=== PATIENT | female | born 1950 | race Caucasian/White ===

== ENCOUNTER 2017-06-15 10:14 | Emergency (ER) | payer BC ==
[2017-06-15 11:08] VITALS: BP 133/78
[2017-06-15] MEDS ORDERED: HYDROmorphone 1 MG/ML Syringe IM ONE (11:11)
--- NOTE | 2017-06-15 11:24 | EDM.PDOC ---
Scribed by Mariah Day 06/15/17 1122 for Jalil Emerson MD ED HPI GENERAL MEDICAL PROBLEM - General Chief Complaint: Back Pain or Injury Stated Complaint: [id number] BACK OUT Time Seen by Provider: 06/15/17 11:06 Source of Information: Reports: Patient, RN, RN Notes Reviewed History Limitations: Reports: No Limitations - History of Present Illness INITIAL COMMENTS - FREE TEXT/NARRATIVE: History of chronic low back with acute flare up last week. Patient complains of pain radiating from the low back through the left buttock to the left ankle. Denies numbness in saddle area, tingling or motor weakness. Denies loss of bowel or bladder control. Location: Reports: Back Quality: Reports: Ache Severity: Severe Improves with: Reports: None Worsens with: Reports: None Associated Symptoms: Reports: No Other Symptoms Left Back Pain Score (Numeric/FACES): 8 - Related Data Allergies Allergy/AdvReac Type Severity Reaction Status Date / Time ciprofloxacin Allergy Severe Difficulty Verified 06/15/17 11:08 Breathing azithromycin [From Zithromax] Allergy Difficulty Verified 06/15/17 11:08 Breathing Iodinated Contrast- Oral and Allergy Hives Verified 06/15/17 11:08 IV Dye [Iodinated Contrast Media - IV Dye] iodine Allergy Hives Verified 06/15/17 11:08 Sulfa (Sulfonamide Allergy Cannot Verified 06/15/17 11:08 Antibiotics) Remember Home Meds: Home Meds Albuterol/Ipratropium [DuoNeb 3.0-0.5 MG/3 ML] 1 packet INH QID PRN 04/24/14 [ History] Bimatoprost [LUMIGAN 0.01% Ophth Soln] 1 drop EYEBOTH BEDTIME 04/24/14 [History] Brimonidine/Timolol [Combigan 0.2%/0.5% Ophth Soln] 1 drop EYERT BID 04/24/14 [ History] Budesonide/Formoterol [Symbicort 160-4.5 MCG] 2 puff INH BID 04/24/14 [History] Levothyroxine [Synthroid] 88 mcg PO ACBRK 04/24/14 [History] Montelukast [Singulair] 10 mg PO BEDTIME 04/24/14 [History] Pitavastatin [Livalo] 1 mg PO DAILY 04/24/14 [History] Roflumilast [Daliresp] 500 mcg PO DAILY 04/24/14 [History] Tiotropium [Spiriva HandiHaler] 2 puff INH DAILY 04/24/14 [History] Fluticasone Propionate [Flonase] 1 spray INH DAILY 09/27/14 [History] Azithromycin [Zithromax] 250 mg PO DAILY 01/22/15 [History] Past Medical History Respiratory History: Reports: COPD Musculoskeletal History: Reports: Back Pain, Chronic (chronic low) - Past Surgical History Respiratory Surgical History: Reports: Other (See Below) (lung transplant.) Social & Family History - Family History Family Medical History: Noncontributory - Tobacco Use Smoking Status *Q: Never Smoker Years of Tobacco use: 25 Used Tobacco, but Quit: Yes Month Tobacco Last Used: 2003 Second Hand Smoke Exposure: No - Alcohol Use Days Per Week of Alcohol Use: 0 - Recreational Drug Use Recreational Drug Use: No - Living Situation & Occupation Living situation: Reports: Occupation: Retired ED ROS GENERAL - Review of Systems Review Of Systems: ROS reveals no pertinent complaints other than HPI. ED EXAM,LOWER BACK PAIN/INJURY - Physical Exam Exam: See Below Exam Limited By: No Limitations General Appearance: Alert, WD/WN, No Apparent Distress, Obese Neck: Normal Inspection, Supple, Non-Tender, Full Range of Motion Respiratory/Chest: No Respiratory Distress, Lungs Clear, Normal Breath Sounds, No Accessory Muscle Use, Chest Non-Tender Cardiovascular: Normal Peripheral Pulses, Regular Rate, Rhythm, No Edema, No Gallop, No JVD, No Murmur, No Rub GI/Abdominal: Other (benign obese abdomen) (Female) Exam: Deferred Rectal (Female) Exam: Deferred Back Exam: Other (tender to palpation at left L/S junction and L SI joint. Decreased lumbar ROM due to pain. ) Neurological: Alert, Normal Mood/Affect, Normal Dorsiflexion, CN II-XII Intact, Normal Plantar Flexion, Normal Gait, Normal Reflexes, No Motor/Sensory Deficits , Oriented x 3 Psychiatric: Normal Affect, Normal Mood Skin Exam: Warm, Dry, Intact, Normal Color, No Rash Course - Vital Signs Last Recorded V/S: Last Vital Signs Temp 35.9 C 06/15/17 10:45 Pulse 92 06/15/17 10:45 Resp 18 06/15/17 10:45 BP 133/78 06/15/17 10:45 Pulse Ox 96 06/15/17 10:45 - Orders/Labs/Meds Meds: Medications Discontinued Medications Generic Name Dose Route Start Last Admin Trade Name Duglas PRN Reason Stop Dose Admin Hydromorphone HCl 1 mg 06/15/17 11:11 06/15/17 11:22 Dilaudid IM 06/15/17 11:12 1 mg ONETIME ONE Administration Departure - Departure Time of Disposition: 11:12 Disposition: Home, Self-Care 01 Condition: Good Clinical Impression: Acute exacerbation of chronic low back pain, Acute left lumbar radiculopathy - Discharge Information Instructions: Lumbosacral Radiculopathy Forms: ED Department Discharge Additional Instructions: RX: Oxycodone APAP 10mg/325mg. Follow up in clinic this week for recheck. I have read and agree with the documentation that has been completed regarding this visit. By signing this record, I attest that the documentation was completed in my physical presence and is an accurate record of the encounter.
== END 2017-06-15 11:45 | disposition home or self-care (01) ==
LOC: DL.ED 10:14
DX: M54.16 Radiculopathy, lumbar region (principal); G89.29 Other chronic pain; J44.9 Chronic obstructive pulmonary disease, unspecified; Z94.2 Lung transplant status; Z87.891 Personal history of nicotine dependence; Z79.2 Long term (current) use of antibiotics; Z79.899 Other long term (current) drug therapy; Z88.2 Allergy status to sulfonamides; Z88.1 Allergy status to other antibiotic agents; Z91.041 Radiographic dye allergy status
CPT/HCPCS: 96372; 99282; J1170

== ENCOUNTER 2017-06-28 03:22 | Emergency (ER) | payer BC ==
[2017-06-28] MEDS ORDERED: Acyclovir 200 MG Cap PO ONE (03:39)
--- NOTE | 2017-06-28 03:44 | EDM.PDOC ---
ED HPI GENERAL MEDICAL PROBLEM - General Chief Complaint: Back Pain or Injury Stated Complaint: IN BY AMBULANCE Time Seen by Provider: 06/28/17 03:39 Source of Information: Reports: Patient History Limitations: Reports: No Limitations - History of Present Illness INITIAL COMMENTS - FREE TEXT/NARRATIVE: gives long h/o LBP, MRI scan from yesterday reveal multi level degenerative disk problems. Pt being Tx by PMD with multiple Rx but none helping thus far. also yesterday developed something on low back which is very painful. also her sciatica been worse. Left Lower Back Pain Score (Numeric/FACES): 10 - Related Data Allergies Allergy/AdvReac Type Severity Reaction Status Date / Time ciprofloxacin Allergy Severe Difficulty Verified 06/28/17 03:37 Breathing azithromycin [From Zithromax] Allergy Difficulty Verified 06/28/17 03:37 Breathing Iodinated Contrast- Oral and Allergy Hives Verified 06/28/17 03:37 IV Dye [Iodinated Contrast Media - IV Dye] iodine Allergy Hives Verified 06/28/17 03:37 Sulfa (Sulfonamide Allergy Cannot Verified 06/28/17 03:37 Antibiotics) Remember Home Meds: Home Meds Brimonidine/Timolol [Combigan 0.2%/0.5% Ophth Soln] 1 drop EYERT BID 04/24/14 [ History] Levothyroxine [Synthroid] 88 mcg PO ACBRK 04/24/14 [History] Pitavastatin [Livalo] 1 mg PO DAILY 04/24/14 [History] Bimatoprost [Lumigan 0.03% Ophth Soln] 2 drop EYEBOTH BEDTIME 06/28/17 [History] Calcium Carbonate/Vitamin D3 [Calcium 600-Vit D3 400 Tablet] 1 tab PO BID [History] Cholecalciferol (Vitamin D3) [Vitamin D3] 1 cap PO DAILY 06/28/17 [History] Dapsone 2 tab PO ASDIRECTED 06/28/17 [History] Hydrocodone/Acetaminophen [Hydrocodon-Acetaminophn 10-325] 1 tab PO ASDIRECTED PRN 06/28/17 [History] Lutein 1 cap PO DAILY 06/28/17 [History] Magnesium Oxide 1 tab PO TID 06/28/17 [History] Multivitamin [Multi-Day Vitamins] 1 tab PO DAILY 06/28/17 [History] Mycophenolate Mofetil [Cellcept] 6 cap PO BID 06/28/17 [History] Omeprazole 1 tab PO DAILY 06/28/17 [History] Tacrolimus 1 tab PO ASDIRECTED 06/28/17 [History] Tacrolimus [Prograf] 1 tab PO ASDIRECTED 06/28/17 [History] glipiZIDE [Glucotrol] 1 tab PO DAILY 06/28/17 [History] methylPREDNISolone [Methylprednisolone] 1 tab PO ASDIRECTED 06/28/17 [History] oxyCODONE 1 tab PO ASDIRECTED PRN 06/28/17 [History] predniSONE [Prednisone] 1 tab PO ASDIRECTED 06/28/17 [History] tiZANidine HCl [Zanaflex] 1 tab PO ASDIRECTED PRN 06/28/17 [History] traMADol [Ultram] 1 tab PO ASDIRECTED PRN 06/28/17 [History] Past Medical History Respiratory History: Reports: COPD Musculoskeletal History: Reports: Back Pain, Chronic (chronic low) - Past Surgical History Respiratory Surgical History: Reports: Other (See Below) (lung transplant.) Social & Family History - Family History Family Medical History: Noncontributory - Tobacco Use Smoking Status *Q: Never Smoker Years of Tobacco use: 25 Used Tobacco, but Quit: Yes Month Tobacco Last Used: 2003 Second Hand Smoke Exposure: No - Alcohol Use Days Per Week of Alcohol Use: 0 - Recreational Drug Use Recreational Drug Use: No - Living Situation & Occupation Living situation: Reports: Occupation: Retired ED ROS GENERAL - Review of Systems Review Of Systems: ROS reveals no pertinent complaints other than HPI. ED EXAM,LOWER BACK PAIN/INJURY - Physical Exam Exam: See Below Exam Limited By: No Limitations General Appearance: Alert, WD/WN, Mild Distress, Other (tearful) Ears: Hearing Grossly Normal Throat/Mouth: Normal Voice, No Airway Compromise Head: Atraumatic Neck: Non-Tender, Full Range of Motion Respiratory/Chest: No Respiratory Distress Cardiovascular: Regular Rate, Rhythm GI/Abdominal: Soft, Non-Tender Back Exam: Decreased Range of Motion, Muscle Spasm, Paraspinal Tenderness, Other (bilateral sciatica with shingle lesion along nerve root. gait limited to pain) Neurological: Alert, No Motor/Sensory Deficits, Oriented x 3 Psychiatric: Tearful Skin Exam: Warm, Dry, Normal Color Lymphatic: No Adenopathy Course - Vital Signs Last Recorded V/S: Last Vital Signs Temp 35.7 C 06/28/17 04:20 Pulse 100 06/28/17 04:20 Resp 22 H 06/28/17 04:20 BP 132/69 06/28/17 04:20 Pulse Ox 98 06/28/17 04:20 - Orders/Labs/Meds Orders: Active Orders 24 hr Category Date Time Status fentaNYL [Duragesic] Med 06/28/17 03:45 Active 25 mcg TRDERM Q72H Medication Orders Fentanyl (Duragesic) 25 mcg TRDERM Q72H EFRAÍN Last Admin: 06/28/17 03:58 Dose: 25 mcg Meds: Medications Generic Name Dose Route Start Last Admin Trade Name Freq PRN Reason Stop Dose Admin Fentanyl 25 mcg 06/28/17 03:45 06/28/17 03:58 Duragesic TRDERM 25 mcg Q72H EFRAÍN Administration Discontinued Medications Generic Name Dose Route Start Last Admin Trade Name Freq PRN Reason Stop Dose Admin Acyclovir 200 mg 06/28/17 03:39 06/28/17 03:59 Zovirax PO 06/28/17 03:40 200 mg ONETIME ONE Administration Butorphanol Tartrate 2 mg 06/28/17 04:39 06/28/17 04:46 Stadol IM 06/28/17 04:40 2 mg ONETIME ONE Administration - Re-Assessments/Exams Free Text/Narrative Re-Assessment/Exam: 06/28/17 05:40 re-exam; s/p IM Rx = somewhat better but not 100%. Departure - Departure Time of Disposition: 05:41 Disposition: Home, Self-Care 01 Condition: Fair Clinical Impression: Multifactorial low back pain, Shingles (herpes zoster) polyneuropathy, Lumbar radicular pain Sciatica Qualifiers: Laterality: bilateral Qualified Code(s): M54.31 - Sciatica, right side - Discharge Information Instructions: Back Pain, Adult, [id number] Forms: ED Department Discharge Additional Instructions: 1) rest 2) try ice or heat to area 3) avoid bending lifting straining next 48 hours 4) see family doctor Friday rx given; zovirax 200mg 5 daily x 5 days - My Orders Last 24 Hours: My Active Orders 06/28/17 03:45 fentaNYL [Duragesic] 25 mcg TRDERM Q72H - Assessment/Plan Last 24 Hours: My Active Orders 06/28/17 03:45 fentaNYL [Duragesic] 25 mcg TRDERM Q72H
[2017-06-28] MEDS ORDERED: fentaNYL 25 MCG/HR Transdermal Patch TRDERM SCH (03:45)
[2017-06-28 04:22] VITALS: BP 132/69
[2017-06-28] MEDS ORDERED: Butorphanol 2 MG/ML SDV IM ONE (04:39)
== END 2017-06-28 05:50 | disposition home or self-care (01) ==
LOC: DL.ED 03:22
DX: M54.41 Lumbago with sciatica, right side (principal); B02.23 Postherpetic polyneuropathy; J44.9 Chronic obstructive pulmonary disease, unspecified; Z88.1 Allergy status to other antibiotic agents; Z88.2 Allergy status to sulfonamides; Z88.8 Allergy status to other drugs, medicaments and biological substances; Z91.041 Radiographic dye allergy status; Z79.84 Long term (current) use of oral hypoglycemic drugs; Z79.899 Other long term (current) drug therapy
CPT/HCPCS: 96372; 99283; A9270; J0595

== ENCOUNTER 2017-12-07 09:55 | Emergency (ER) | payer MEDICARE, BC ==
--- NOTE | 2017-12-07 10:07 | EDM.PDOC ---
ED HPI GENERAL MEDICAL PROBLEM - General Chief Complaint: Respiratory Problem Stated Complaint: BY AMBULANCE Time Seen by Provider: 12/07/17 09:55 Source of Information: Reports: Patient, EMS, EMS Notes Reviewed, RN, RN Notes Reviewed History Limitations: Reports: No Limitations - History of Present Illness INITIAL COMMENTS - FREE TEXT/NARRATIVE: Pt presents to ER per [facility] with c/o SOB since , with N/V/D beginning today. Pt states she has a hx of a left lung transplant approx. 2 years ago for hx of severe COPD. She states she developed a cough on , and the cough and her breathing has progressively gotten worse. Pt states she has had the chills, but is unsure if she has had a fever. Patient denies any chest pains. Pt admits to DM and HTN. Onset: Gradual Onset Date: 12/04/17 - Related Data Allergies Allergy/AdvReac Type Severity Reaction Status Date / Time ciprofloxacin Allergy Severe Difficulty Verified 12/07/17 10:20 Breathing azithromycin [From Zithromax] Allergy Difficulty Verified 12/07/17 10:20 Breathing Iodinated Contrast- Oral and Allergy Hives Verified 12/07/17 10:20 IV Dye [Iodinated Contrast Media - IV Dye] iodine Allergy Hives Verified 12/07/17 10:20 Sulfa (Sulfonamide Allergy Cannot Verified 12/07/17 10:20 Antibiotics) Remember Home Meds: Home Meds Brimonidine/Timolol [Combigan 0.2%/0.5% Ophth Soln] 1 drop EYERT Q12HR 04/24/14 [History] Levothyroxine [Synthroid] 88 mcg PO ACBRK 04/24/14 [History] Bimatoprost [Lumigan 0.03% Ophth Soln] 2 drop EYEBOTH BEDTIME 06/28/17 [History] Calcium Carbonate/Vitamin D3 [Calcium 600-Vit D3 400 Tablet] 1 tab PO BID [History] Cholecalciferol (Vitamin D3) [Vitamin D3] 1,000 unit PO DAILY 06/28/17 [History] Dapsone 50 mg PO .3XAWEEK 06/28/17 [History] Lutein 6 mg PO DAILY 06/28/17 [History] Magnesium Oxide 400 mg PO TID 06/28/17 [History] Multivitamin [Multi-Day Vitamins] 1 tab PO DAILY 06/28/17 [History] Mycophenolate Mofetil [Cellcept] 1,500 mg PO BID 06/28/17 [History] Omeprazole 20 mg PO BID 06/28/17 [History] Tacrolimus 1.5 mg PO QAM 06/28/17 [History] Tacrolimus [Prograf] 2 mg PO QPM 06/28/17 [History] predniSONE [Prednisone] 5 mg PO QAM 06/28/17 [History] Acetaminophen 975 mg PO TID 12/07/17 [History] Furosemide 20 mg PO DAILY 12/07/17 [History] Gabapentin [Neurontin] 600 mg PO TID 12/07/17 [History] Insulin Glarg,Human.Rec.Analog [Lantus Solostar] 12 unit SUBCUT BEDTIME [History] Simvastatin [Zocor] 10 mg PO BEDTIME 12/07/17 [History] predniSONE [Prednisone] 2.5 mg PO QPM 12/07/17 [History] Past Medical History HEENT History: Reports: Glaucoma Cardiovascular History: Reports: High Cholesterol Respiratory History: Reports: COPD Gastrointestinal History: Reports: [employer] History: Reports: Musculoskeletal History: Reports: Back Pain, Chronic (chronic low) Endocrine/Metabolic History: Reports: Diabetes, Type II, Hypoparathyroidism, Hypothyroidism, Vitamin D Deficiency - Infectious Disease History Infectious Disease History: Reports: Shingles - Past Surgical History Respiratory Surgical History: Reports: Other (See Below) (lung transplant.) Social & Family History - Family History Family Medical History: Noncontributory - Tobacco Use Smoking Status *Q: Never Smoker Years of Tobacco use: 25 Used Tobacco, but Quit: Yes Month Tobacco Last Used: 2003 Second Hand Smoke Exposure: No - Caffeine Use Caffeine Use: Reports: Coffee - Alcohol Use Days Per Week of Alcohol Use: 0 - Recreational Drug Use Recreational Drug Use: No - Living Situation & Occupation Living situation: Reports: Occupation: Retired ED ROS GENERAL - Review of Systems Review Of Systems: ROS reveals no pertinent complaints other than HPI. ED EXAM, GENERAL - Physical Exam Exam: See Below Exam Limited By: No Limitations General Appearance: Alert, WD/WN, Moderate Distress Eye Exam: Bilateral Eye: EOMI, Normal Inspection, PERRL Ears: Normal External Exam, Hearing Grossly Normal Nose: Normal Inspection Throat/Mouth: Normal Inspection, No Airway Compromise, Other (Raspy voice at times) Head: Atraumatic, Normocephalic Neck: Normal Inspection Respiratory/Chest: Chest Non-Tender, Respiratory Distress, Decreased Breath Sounds, Rales, Accessory Muscle Use Cardiovascular: Normal Peripheral Pulses, Regular Rate, Rhythm, No Edema, No Gallop, No JVD, No Murmur, No Rub Peripheral Pulses: 2+: Radial (L), Radial (R), Dorsalis Pedis (L), Dorsalis Pedis (R) GI/Abdominal: Normal Bowel Sounds, Soft, Non-Tender, No Organomegaly, No Distention, No Abnormal Bruit, No Mass (Female) Exam: Deferred Rectal (Female) Exam: Deferred Back Exam: Normal Inspection, Full Range of Motion Extremities: Normal Inspection, Normal Range of Motion, Non-Tender, No Pedal Edema, Normal Capillary Refill Neurological: Alert, Oriented, CN II-XII Intact, Normal Cognition, Normal Reflexes, No Motor/Sensory Deficits Psychiatric: Normal Affect, Normal Mood Skin Exam: Warm, Dry, Intact, Normal Color, No Rash Lymphatic: No Adenopathy Course - Vital Signs Last Recorded V/S: Last Vital Signs Temp 98 F 12/07/17 10:06 Pulse 114 H 12/07/17 10:12 Resp 22 H 12/07/17 10:06 BP 121/68 12/07/17 10:06 Pulse Ox 96 12/07/17 10:12 - Orders/Labs/Meds Orders: Active Orders 24 hr Category Date Time Status RT Aerosol Therapy [RC] ASDIRECTED Care 12/07/17 10:12 Active Chest 1V Frontal [CR] Stat Exams 12/07/17 10:02 Taken CULTURE BLOOD [BC] Stat Lab 12/07/17 10:15 Received CULTURE BLOOD [BC] Stat Lab 12/07/17 10:22 Results Sodium Chloride 0.9% [Normal Saline] 1,000 ml Med 12/07/17 11:17 Active IV .BOLUS Blood Culture x2 Reflex Set [OM.PC] Stat Oth 12/07/17 10:02 Ordered Medication Orders Sodium Chloride (Normal Saline) 1,000 mls @ 999 mls/hr IV .BOLUS ONE Stop: 12/07/17 12:17 Last Admin: 12/07/17 11:26 Dose: 999 mls/hr Labs: Laboratory Tests 12/07/17 12/07/17 12/07/17 Range/Units 10:15 10:15 10:15 WBC 8.1 (5.0-10.0) 10^3/uL RBC 4.62 (4.2-5.4) 10^6/uL Hgb 12.1 (12.0-16.0) g/dL Hct 39.7 (37.0-47.0) % MCV 85.9 D (80-100) fL MCH 26.2 L (27.0-34.0) pg MCHC 30.5 L (33.0-35.0) g/dL Plt Count 204 D (150-450) 10^3/uL Neut % (Auto) 85.3 H (42.2-75.2) % Lymph % (Auto) 6.8 L (20.5-50.1) % [place] % (Auto) 4.9 (2-8) % Eos % (Auto) 2.8 (1.0-3.0) % Baso % (Auto) 0.2 (0.0-1.0) % Sodium 136 (135-145) mmol/L Potassium 3.9 (3.6-5.0) mmol/L Chloride 102 (101-111) mmol/L Carbon Dioxide 24.0 (21.0-31.0) mmol/L Anion Gap 13.9 BUN 15 (7-18) mg/dL Creatinine 1.0 (0.6-1.3) mg/dL Est Cr Clr Drug Dosing 52.50 mL/min Estimated GFR (MDRD) 56 BUN/Creatinine Ratio 15.00 Glucose 181 H (74-105) mg/dL Lactic Acid 1.6 (0.5-2.2) mmol/L Calcium 8.2 L (8.4-10.2) mg/dl Total Bilirubin 0.6 (0.2-1.0) mg/dL AST 30 (10-42) IU/L ALT 32 (10-60) IU/L Alkaline Phosphatase 50 (42-121) IU/L Total Protein 6.4 L (6.7-8.2) g/dl Albumin 3.5 (3.2-5.5) g/dl Globulin 2.9 Albumin/Globulin Ratio 1.21 Urine Color (YELLOW) Urine Appearance (CLEAR) Urine pH (5.0-9.0) Ur Specific [place] (1.005-1.030) Urine Protein (NEGATIVE) Urine Glucose (UA) (NEGATIVE) Urine Ketones (NEGATIVE) Urine Occult Blood (NEGATIVE) Urine Nitrite (NEGATIVE) Urine Bilirubin (NEGATIVE) Urine Urobilinogen (0.2-1.0) mg/dL Ur Leukocyte Esterase (NEGATIVE) Urine RBC /HPF Urine WBC (0-5/HPF) /HPF Ur Epithelial Cells /HPF Amorphous Sediment (0/HPF) /HPF Urine Bacteria (0-FEW/HPF) /HPF Urine Mucus /LPF 12/07/17 Range/Units 10:55 WBC (5.0-10.0) 10^3/uL RBC (4.2-5.4) 10^6/uL Hgb (12.0-16.0) g/dL Hct (37.0-47.0) % MCV (80-100) fL MCH (27.0-34.0) pg MCHC (33.0-35.0) g/dL Plt Count (150-450) 10^3/uL Neut % (Auto) (42.2-75.2) % Lymph % (Auto) (20.5-50.1) % [place] % (Auto) (2-8) % Eos % (Auto) (1.0-3.0) % Baso % (Auto) (0.0-1.0) % Sodium (135-145) mmol/L Potassium (3.6-5.0) mmol/L Chloride (101-111) mmol/L Carbon Dioxide (21.0-31.0) mmol/L Anion Gap BUN (7-18) mg/dL Creatinine (0.6-1.3) mg/dL Est Cr Clr Drug Dosing mL/min Estimated GFR (MDRD) BUN/Creatinine Ratio Glucose (74-105) mg/dL Lactic Acid (0.5-2.2) mmol/L Calcium (8.4-10.2) mg/dl Total Bilirubin (0.2-1.0) mg/dL AST (10-42) IU/L ALT (10-60) IU/L Alkaline Phosphatase (42-121) IU/L Total Protein (6.7-8.2) g/dl Albumin (3.2-5.5) g/dl Globulin Albumin/Globulin Ratio Urine Color Dark yellow (YELLOW) Urine Appearance Cloudy (CLEAR) Urine pH 5.0 (5.0-9.0) Ur Specific [place] 1.025 (1.005-1.030) Urine Protein 30 H (NEGATIVE) Urine Glucose (UA) Negative (NEGATIVE) Urine Ketones 15 H (NEGATIVE) Urine Occult Blood Negative (NEGATIVE) Urine Nitrite Negative (NEGATIVE) Urine Bilirubin Small H (NEGATIVE) Urine Urobilinogen 0.2 (0.2-1.0) mg/dL Ur Leukocyte Esterase Negative (NEGATIVE) Urine RBC 0-5 /HPF Urine WBC 10-20 H (0-5/HPF) /HPF Ur Epithelial Cells Moderate H /HPF Amorphous Sediment Rare (0/HPF) /HPF Urine Bacteria Few (0-FEW/HPF) /HPF Urine Mucus Moderate H /LPF Meds: Medications Generic Name Dose Route Start Last Admin Trade Name Freq PRN Reason Stop Dose Admin Sodium Chloride 1,000 mls @ 999 mls/hr 12/07/17 11:17 12/07/17 11:26 Normal Saline IV 12/07/17 12:17 999 mls/hr .BOLUS ONE Administration Discontinued Medications Generic Name Dose Route Start Last Admin Trade Name Freq PRN Reason Stop Dose Admin Albuterol/Ipratropium 3 ml 12/07/17 10:12 12/07/17 10:24 Duoneb 3.0-0.5 Mg/3 Ml NEB 12/07/17 10:13 3 ml ONETIME ONE Administration Ceftriaxone Sodium 2,000 mg/ 50 mls @ 100 mls/hr 12/07/17 10:29 12/07/17 10: 58 Sodium Chloride IV 12/07/17 10:58 100 mls/hr ONETIME ONE Administration Ondansetron HCl 4 mg 12/07/17 11:06 12/07/17 11:26 Zofran IV 12/07/17 11:07 4 mg ONETIME ONE Administration Pantoprazole Sodium 40 mg 12/07/17 11:06 12/07/17 11:26 Protonix Iv IVPUSH 12/07/17 11:07 40 mg ONETIME ONE Administration - Radiology Interpretation Free Text/Narrative:: Portable Chest xray: No acute findings See rad report - Re-Assessments/Exams Free Text/Narrative Re-Assessment/Exam: 12/07/17 12:08 Discussed Pt case with Dr. Irwin. Dr. Irwin initially thought he would admit the patient here inpatient. When he came to see her in the ER he felt she would benefit from being transferred to with Pulmonology consult. Departure - Departure Time of Disposition: 12:01 Disposition: DC/Tfer to Acute Hospital 02 Condition: Poor, Serious Clinical Impression: Lung transplant recipient Upper respiratory infection Qualifiers: URI type: unspecified URI Qualified Code(s): J06.9 - Acute upper respiratory infection, unspecified COPD (chronic obstructive pulmonary disease) Qualifiers: COPD type: unspecified COPD Qualified Code(s): J44.9 - Chronic obstructive pulmonary disease, unspecified - Discharge Information Forms: ED Department Discharge, Interfacility Transfer EMTALA - My Orders Last 24 Hours: My Active Orders 12/07/17 10:02 Chest 1V Frontal [CR] Stat Blood Culture x2 Reflex Set [OM.PC] Stat 12/07/17 10:12 RT Aerosol Therapy [RC] ASDIRECTED 12/07/17 10:15 CULTURE BLOOD [BC] Stat 12/07/17 10:22 CULTURE BLOOD [BC] Stat 12/07/17 11:17 Sodium Chloride 0.9% [Normal Saline] 1,000 ml IV .BOLUS - Assessment/Plan Last 24 Hours: My Active Orders 12/07/17 10:02 Chest 1V Frontal [CR] Stat Blood Culture x2 Reflex Set [OM.PC] Stat 12/07/17 10:12 RT Aerosol Therapy [RC] ASDIRECTED 12/07/17 10:15 CULTURE BLOOD [BC] Stat 12/07/17 10:22 CULTURE BLOOD [BC] Stat 12/07/17 11:17 Sodium Chloride 0.9% [Normal Saline] 1,000 ml IV .BOLUS
[2017-12-07 10:12] VITALS: BP 121/68
[2017-12-07] MEDS ORDERED: Albuterol/Ipratropium 3.0-0.5 MG/3 ML Neb Soln NEB ONE (10:12)
[2017-12-07] MEDS ORDERED: Ondansetron 4 MG/2 ML SDV IV ONE (11:06)
[2017-12-07] MEDS ORDERED: Pantoprazole 40 MG Vial IVPUSH ONE (11:06)
[2017-12-07] MEDS ORDERED: Sodium Chloride 0.9% 1,000 ML IV ONE (11:17)
[2017-12-07] MEDS ORDERED: Acetaminophen 325 MG Tab PO ONE (12:19)
== END 2017-12-07 12:28 ==
LOC: DL.ED 09:55
DX: J44.9 Chronic obstructive pulmonary disease, unspecified (principal); J06.9 Acute upper respiratory infection, unspecified; E78.00 Pure hypercholesterolemia, unspecified; I10 Essential (primary) hypertension; K21.9 Gastro-esophageal reflux disease without esophagitis; E11.9 Type 2 diabetes mellitus without complications; E03.9 Hypothyroidism, unspecified; Z94.2 Lung transplant status; Z87.891 Personal history of nicotine dependence; Z79.4 Long term (current) use of insulin; Z79.899 Other long term (current) drug therapy; Z88.1 Allergy status to other antibiotic agents; Z88.2 Allergy status to sulfonamides; Z88.8 Allergy status to other drugs, medicaments and biological substances; Z91.041 Radiographic dye allergy status
CPT/HCPCS: 36415; 71045; 80053; 81001; 83605; 85025; 87040; 94640; 96361; 96365; 96375; 99285; A9270; C9113; J0696; J2405; J7030; J7050

== ENCOUNTER 2020-10-26 12:48 | Observation (INO) | payer MEDICARE, BC ==
[2020-10-26 13:44] LABS: ANION GAP 18.8 mEq/L (7-13)
[2020-10-26] MEDS ORDERED: Magnesium Sulfate/Water 4 GM/100 ML BAG IV ONE (13:49)
[2020-10-26] MEDS ORDERED: Sodium Chloride 0.9% 1,000 ML IV ONE (13:51)
[2020-10-26] MEDS ORDERED: Ondansetron 4 MG/2 ML SDV IVPUSH ONE (13:52)
--- NOTE | 2020-10-26 14:20 | EDM.PDOC ---
ED HPI GENERAL MEDICAL PROBLEM - General Chief Complaint: Gastrointestinal Problem Stated Complaint: DIARRHEA, NAUSEA, NOT FEELING WELL Time Seen by Provider: 10/26/20 13:20 Source of Information: Reports: Patient, RN, RN Notes Reviewed History Limitations: Reports: No Limitations - History of Present Illness INITIAL COMMENTS - FREE TEXT/NARRATIVE: Patient presents to the ED via personal vehicle with complaints of diarrhea, nausea, and vomiting. The patient reports she was diagnosed with a COVID infection on October 16, 10 days ago, following symptoms that began on on . The patient states that she has had persistent diarrhea, nausea, and vomiting since this diagnosis despite multiple doses of Imodium. She states she feels significantly weaker than normal as she has not been able to eat or drink in several days. The patient reports a history of lung transplant for which she takes mycophenolate, tacrolimus, and prednisone; a history of hypertension for which she takes losartan; and a history of DM 2 for which she takes glipizide and Ozempic. The patient denies fever, shaking chills, headache, vision changes, chest pain, shortness of breath, dyspepsia, hematemesis, melena, or hematochezia. The patient does attest to chest palpitations. She denies a history of tobacco, alcohol, or recreational substance use. - Related Data Allergies Allergy/AdvReac Type Severity Reaction Status Date / Time ciprofloxacin Allergy Severe Difficulty Verified 10/26/20 13:15 Breathing azithromycin [From Zithromax] Allergy Difficulty Verified 10/26/20 13:15 Breathing Iodinated Contrast Media Allergy Hives Verified 10/26/20 13:15 [Iodinated Contrast Media - IV Dye] iodine Allergy Hives Verified 10/26/20 13:15 Sulfa (Sulfonamide Allergy Cannot Verified 10/26/20 13:15 Antibiotics) Remember Home Meds: Home Meds Brimonidine/Timolol [Combigan 0.2%/0.5% Ophth Soln] 1 drop EYEBOTH BID 04/24/14 [History] Calcium Carbonate/Vitamin D3 [Calcium 600-Vit D3 400 Tablet] 1 tab PO BID 06/28/17 [History] Cholecalciferol (Vitamin D3) [Vitamin D3] 1,000 unit PO DAILY 06/28/17 [History] Dapsone 50 mg PO .MONWEDFRI 06/28/17 [History] Lutein 6 mg PO DAILY 06/28/17 [History] Magnesium Oxide 1,200 mg PO BID 06/28/17 [History] Multivitamin [Multi-Day Vitamins] 1 tab PO DAILY 06/28/17 [History] Omeprazole 20 mg PO BID 06/28/17 [History] Tacrolimus 1 mg PO BID 06/28/17 [History] predniSONE [Prednisone] 5 mg PO QAM 06/28/17 [History] Acetaminophen 975 mg PO TID 12/07/17 [History] predniSONE [Prednisone] 2.5 mg PO QPM 12/07/17 [History] Lidocaine 5% [Lidoderm 5%] 1 patch TRDERM DAILY PRN 10/26/20 [History] Loperamide [Imodium] 2 mg PO Q6H PRN 10/26/20 [History] Bimatoprost [Lumigan 0.01% Ophth Soln] 1 drop EYEBOTH BEDTIME 10/27/20 [History] Bumetanide 0.5 mg PO DAILY 10/27/20 [History] Diclofenac Sodium [Voltaren 1% Gel] 1 gram TOP BID PRN 10/27/20 [History] Insulin Glargine,Hum.Rec.Anlog [Basaglar Kwikpen U-100] 18 units SQ BEDTIME 10/27/20 [History] Levothyroxine 112 mcg PO ACBREAKFAST 10/27/20 [History] Losartan [Cozaar] 100 mg PO DAILY 10/27/20 [History] Semaglutide [Ozempic] 1 mg SQ .WEEKLY 10/27/20 [History] Simvastatin 40 mg PO BEDTIME 10/27/20 [History] Tacrolimus 0.5 mg PO BID 10/27/20 [History] glipiZIDE [Glucotrol] 10 mg PO BID 10/27/20 [History] mycophenolate mofetiL [Mycophenolate Mofetil] 1,500 mg PO BID 10/27/20 [History] Past Medical History HEENT History: Reports: Glaucoma, Macular Degeneration Cardiovascular History: Reports: High Cholesterol Respiratory History: Reports: COPD, Sleep Apnea, Other (See Below) Other Respiratory History: COVID 19 Gastrointestinal History: Reports: GERD Genitourinary History: Reports: None [employer]ER History: Reports: Musculoskeletal History: Reports: Back Pain, Chronic Neurological History: Reports: None Psychiatric History: Reports: None Endocrine/Metabolic History: Reports: Diabetes, Type II, Hypoparathyroidism, Hypothyroidism, Vitamin D Deficiency Hematologic History: Reports: None Immunologic History: Reports: Other (See Below) Other Immunologic History: Lung transplant Oncologic (Cancer) History: Reports: None Dermatologic History: Reports: None - Infectious Disease History Infectious Disease History: Reports: Shingles - Past Surgical History Head Surgeries/Procedures: Reports: None HEENT Surgical History: Reports: None Cardiovascular Surgical History: Reports: None Respiratory Surgical History: Reports: Other (See Below) Other Respiratory Surgeries/Procedures: left lung transplant 2014 GI Surgical History: Reports: Colonoscopy Female Surgical History: Reports: Tubal Ligation Endocrine Surgical History: Reports: None Neurological Surgical History: Reports: None Musculoskeletal Surgical History: Reports: None Oncologic Surgical History: Reports: None Dermatological Surgical History: Reports: None Social & Family History - Family History Family Medical History: No Pertinent Family History - Tobacco Use Tobacco Use Status *Q: Never Tobacco User - Caffeine Use Caffeine Use: Reports: Coffee Caffeine Use Comment: 1-2 CUPS DAILY - Recreational Drug Use Recreational Drug Use: No - Living Situation & Occupation Living situation: Reports: Occupation: Retired ED ROS GENERAL - Review of Systems Review Of Systems: Comprehensive ROS is negative, except as noted in HPI. ED EXAM, GI/ABD - Physical Exam Exam: See Below Exam Limited By: No Limitations General Appearance: Alert, Mild Distress, Obese Eyes: Bilateral: Normal Appearance, EOMI Throat/Mouth: Normal Voice, No Airway Compromise. No: Normal Oropharynx (Dry mucous membranes) Head: Atraumatic, Normocephalic Neck: Normal Inspection, Supple, Non-Tender, Full Range of Motion. No: Lymphadenopathy (L), Lymphadenopathy (R) Respiratory/Chest: No Accessory Muscle Use, Chest Non-Tender, Decreased Breath Sounds, Other (Absent lung sounds to right upper lobe). No: Crackles, Rales, Rhonchi, Wheezing, Stridor, Pleural Rub Cardiovascular: Normal Peripheral Pulses, Regular Rate, Rhythm, No Edema, No Gallop, No JVD, No Murmur, No Rub GI/Abdominal Exam: Soft, No Distention, No Mass, Pelvis Stable, Tender (To palpation of RUQ and LLQ), Abnormal Bowel Sounds (Hyperactive) (Female) Exam: Deferred Rectal (Female) Exam: Deferred Back Exam: Normal Inspection, Full Range of Motion. No: CVA Tenderness (L), CVA Tenderness (R) Extremities: Normal Inspection, Normal Range of Motion, Non-Tender, No Pedal Edema, Normal Capillary Refill Neurological: Alert, Oriented, CN II-XII Intact, Normal Cognition, Normal Gait, No Motor/Sensory Deficits Psychiatric: Normal Affect, Normal Mood Skin Exam: Warm, Dry, Intact, Normal Color, No Rash. No: Ecchymosis, Erythema, Increased Warmth, Jaundice, Mottled, Pallor, Petechiae Course - Vital Signs Last Recorded V/S: Last Vital Signs Temp 97.7 F 10/27/20 08:00 Pulse 86 10/27/20 08:00 Resp 18 10/27/20 08:00 BP 116/53 L 10/27/20 08:00 Pulse Ox 95 10/27/20 08:00 - Orders/Labs/Meds Orders: Active Orders 24 hr Category Date Time Status Admission Diagnosis [ADT] Stat ADT 10/26/20 18:35 Ordered Admission Status [Patient Status] [ADT] Routine ADT 10/26/20 18:35 Active Late Tray [DIET] Routine Diet 10/26/20 14:13 Active CULTURE URINE [RM] Stat Lab 10/26/20 16:28 Results Medication Orders Acetaminophen (Tylenol) 650 mg PO Q4H PRN PRN Reason: Pain (Mild 1-3)/fever Bismuth Subsalicylate (Pepto Bismol) 30 mg PO TID [facility] Bumetanide (Bumex) 0.5 mg PO DAILY [facility] Dextrose/Water (Dextrose 50% In Water) 50 ml IV ASDIRECTED PRN PRN Reason: Hypoglycemia Glipizide (Glucotrol) 10 mg PO BID [facility] Glucagon (Glucagen) 1 mg IM ASDIRECTED PRN PRN Reason: Hypoglycemia Heparin Sodium (Porcine) (Heparin Sodium) 5,000 units SUBCUT Q8HR [facility] Last Admin: 10/27/20 05:57 Dose: Not Given Documented by: Admin: 10/26/20 21:44 Dose: 5,000 units Documented by: JOB Ciprofloxacin/Dextrose 400 mg/ (Premix) 200 mls @ 200 mls/hr IV DAILY [facility] Insulin Glargine (Lantus) 12 unit SUBCUT BEDTIME [facility] Insulin Human Lispro (Humalog) 0 unit SUBCUT WITHMEALSANDBED [facility]; Protocol Last Admin: 10/27/20 08:50 Dose: Not Given Documented by: Admin: 10/26/20 21:43 Dose: 1 unit Documented by: JOB Levothyroxine Sodium (Levothyroxine) 112 mcg PO ACBRK [facility] Loperamide HCl (Imodium) 2 mg PO Q6H PRN PRN Reason: Diarrhea Magnesium Oxide (Magnesium Oxide) 1,200 mg PO BIDMEALS [facility] Multivitamins (Thera) 1 each PO DAILY [facility] Last Admin: 10/27/20 10:23 Dose: 1 each Documented by: MALLIKA Non-Formulary Medication 1 Each ( Bimatoprost [Lumigan 0.01% Ophth Soln] 2 Drop) 1 drop EYEBOTH BEDTIME [facility] Non-Formulary Medication (Brimonidine/Timolol [Combigan 0.2%/0.5% Ophth Soln]) 1 drop EYERT Q12HR [facility] Dapsone [Dapsone] 25 (Mg Tab) 0 mg PO [id number] [facility] Tacrolimus 1 Mg Cap (*Own Med*) 0 each PO BID [facility] Last Admin: 10/27/20 11:19 Dose: 1 each Documented by: MALLIKA Tacrolimus 0.5 Mg (Cap *Own Med*) 0 each PO BID [facility] Last Admin: 10/27/20 11:19 Dose: 1 each Documented by: MALLIKA Omeprazole (Omeprazole) 20 mg PO BIDAC [facility] Last Admin: 10/27/20 08:49 Dose: 20 mg Documented by: MALLIKA Ondansetron HCl (Zofran Odt) 4 mg PO Q4H PRN PRN Reason: nausea, able to take PO Last Admin: 10/26/20 21:53 Dose: 4 mg Documented by: JOB Mycophenolate 500 Mg (Tab *Own Med*) 0 each PO BID [facility] Prednisone (Prednisone) 2.5 mg PO BEDTIME [facility] Prednisone (Prednisone) 5 mg PO QAM [facility] Simvastatin (Zocor) 40 mg PO BEDTIME [facility] Temazepam (Restoril) 15 mg PO BEDTIME PRN PRN Reason: Sleep Labs: Laboratory Tests 10/26/20 10/26/20 10/26/20 Range/Units 13:19 13:19 13:19 WBC 7.1 (5.0-10.0) 10^3/uL RBC 4.67 (4.2-5.4) 10^6/uL Hgb 13.1 (12.0-16.0) g/dL Hct 40.5 (37.0-47.0) % MCV 86.7 (80-100) fL MCH 28.1 (27.0-34.0) pg MCHC 32.3 L (33.0-35.0) g/dL Plt Count 219 (150-450) 10^3/uL Neut % (Auto) 83.4 H (42.2-75.2) % Lymph % (Auto) 8.2 L (20.5-50.1) % [place] % (Auto) 7.3 (2-8) % Eos % (Auto) 1.0 (1.0-3.0) % Baso % (Auto) 0.1 (0.0-1.0) % D-Dimer, Quantitative 519 H (0-400) ng/mL Sodium 138 (136-145) mmol/L Potassium 3.8 (3.5-5.1) mmol/L Chloride 102 (98-107) mmol/L Carbon Dioxide 21 (21-32) mmol/L Anion Gap 18.8 H (7-13) mEq/L BUN 40 H (7-18) mg/dL Creatinine 1.98 H (0.55-1.02) mg/dL Est Cr Clr Drug Dosing 25.46 mL/min Estimated GFR (MDRD) 25 BUN/Creatinine Ratio 20.2 (No establ ref range) Glucose 259 H (74-99) mg/dL Lactic Acid (0.4-2.0) mmol/L Calcium 8.4 L (8.5-10.1) mg/dL Magnesium 1.0 L (1.8-2.4) mg/dL Total Bilirubin 0.5 (0.2-1.0) mg/dL AST 38 H (15-37) U/L ALT 79 H (14-59) U/L Alkaline Phosphatase 78 (46-116) U/L B-Natriuretic Peptide 8 (0-100) pg/ml Total Protein 6.2 L (6.4-8.2) g/dL Albumin 3.1 L (3.4-5.0) g/dL Globulin 3.1 Albumin/Globulin Ratio 1.00 Urine Color (YELLOW) Urine Appearance (CLEAR) Urine pH (5.0-9.0) Ur Specific [place] (1.005-1.030) Urine Protein (NEGATIVE) Urine Glucose (UA) (NEGATIVE) Urine Ketones (NEGATIVE) Urine Occult Blood (NEGATIVE) Urine Nitrite (NEGATIVE) Urine Bilirubin (NEGATIVE) Urine Urobilinogen (0.2-1.0) mg/dL Ur Leukocyte Esterase (NEGATIVE) Urine RBC /HPF Urine WBC (0-5/HPF) /HPF Ur Epithelial Cells (NOT SEEN) /HPF Amorphous Sediment (NOT SEEN) /HPF Urine Bacteria (0-FEW/HPF) /HPF Urine Mucus (NOT SEEN) /LPF 10/26/20 10/26/20 10/26/20 Range/Units 13:19 16:28 17:45 WBC (5.0-10.0) 10^3/uL RBC (4.2-5.4) 10^6/uL Hgb (12.0-16.0) g/dL Hct (37.0-47.0) % MCV (80-100) fL MCH (27.0-34.0) pg MCHC (33.0-35.0) g/dL Plt Count (150-450) 10^3/uL Neut % (Auto) (42.2-75.2) % Lymph % (Auto) (20.5-50.1) % [place] % (Auto) (2-8) % Eos % (Auto) (1.0-3.0) % Baso % (Auto) (0.0-1.0) % D-Dimer, Quantitative (0-400) ng/mL Sodium 139 (136-145) mmol/L Potassium 4.3 (3.5-5.1) mmol/L Chloride 104 (98-107) mmol/L Carbon Dioxide 22 (21-32) mmol/L Anion Gap 17.3 H (7-13) mEq/L BUN 40 H (7-18) mg/dL Creatinine 1.85 H (0.55-1.02) mg/dL Est Cr Clr Drug Dosing 27.25 mL/min Estimated GFR (MDRD) 27 BUN/Creatinine Ratio (No establ ref range) Glucose 232 H (74-99) mg/dL Lactic Acid 1.5 (0.4-2.0) mmol/L Calcium 8.6 (8.5-10.1) mg/dL Magnesium 3.2 H (1.8-2.4) mg/dL Total Bilirubin (0.2-1.0) mg/dL AST (15-37) U/L ALT (14-59) U/L Alkaline Phosphatase (46-116) U/L B-Natriuretic Peptide (0-100) pg/ml Total Protein (6.4-8.2) g/dL Albumin (3.4-5.0) g/dL Globulin Albumin/Globulin Ratio Urine Color Yellow (YELLOW) Urine Appearance Slightly cloudy (CLEAR) Urine pH 5.0 (5.0-9.0) Ur Specific [place] 1.020 (1.005-1.030) Urine Protein Negative (NEGATIVE) Urine Glucose (UA) 100 H (NEGATIVE) Urine Ketones Negative (NEGATIVE) Urine Occult Blood Negative (NEGATIVE) Urine Nitrite Negative (NEGATIVE) Urine Bilirubin Negative (NEGATIVE) Urine Urobilinogen 0.2 (0.2-1.0) mg/dL Ur Leukocyte Esterase Trace H (NEGATIVE) Urine RBC 0-5 /HPF Urine WBC 30-40 H (0-5/HPF) /HPF Ur Epithelial Cells Few (NOT SEEN) /HPF Amorphous Sediment Few (NOT SEEN) /HPF Urine Bacteria Many H (0-FEW/HPF) /HPF Urine Mucus Few H (NOT SEEN) /LPF Meds: Medications Generic Name Dose Route Start Last Admin Trade Name Freq PRN Reason Stop Dose Admin Acetaminophen 650 mg 10/26/20 19:56 Tylenol PO Q4H PRN Pain (Mild 1-3)/fever Bismuth Subsalicylate 30 mg 10/27/20 14:00 Pepto Bismol PO TID [facility] Bumetanide 0.5 mg 10/28/20 09:00 Bumex PO DAILY [facility] Dextrose/Water 50 ml 10/26/20 19:58 Dextrose 50% In Water IV ASDIRECTED PRN Hypoglycemia Glipizide 10 mg 10/27/20 21:00 Glucotrol PO BID [facility] Glucagon 1 mg 10/26/20 19:58 Glucagen IM ASDIRECTED PRN Hypoglycemia Heparin Sodium (Porcine) 5,000 units 10/26/20 22:00 10/27/20 05:57 Heparin Sodium SUBCUT Not Given Q8HR [facility] Ciprofloxacin/Dextrose 400 mg/ 200 mls @ 200 mls/hr 10/27/20 15:00 Premix IV DAILY [facility] Insulin Glargine 12 unit 10/27/20 21:00 Lantus SUBCUT BEDTIME [facility] Insulin Human Lispro 0 unit 10/26/20 21:00 10/27/20 08:50 Humalog SUBCUT Not Given WITHMEALSANDBED [facility] Protocol Levothyroxine Sodium 112 mcg 10/28/20 06:00 Levothyroxine PO ACBRK [facility] Loperamide HCl 2 mg 10/27/20 12:05 Imodium PO Q6H PRN Diarrhea Magnesium Oxide 1,200 mg 10/27/20 18:00 Magnesium Oxide PO BIDMEALS [facility] Multivitamins 1 each 10/27/20 09:00 10/27/20 10:23 Thera PO 1 each DAILY [facility] Administration Non-Formulary 1 drop 10/26/20 21:00 Medication 1 Each ( EYEBOTH Bimatoprost [Lumigan BEDTIME [facility] 0.01% Ophth Soln] 2 Drop) Non-Formulary Medication 1 drop 10/26/20 21:00 Brimonidine/Timolol [Combigan 0.2%/0.5% Ophth Soln] EYERT Q12HR [facility] Dapsone [Dapsone] 25 0 mg 10/27/20 21:00 Mg Tab PO MoWeFr@2100 [facility] Tacrolimus 1 Mg Cap 0 each 10/27/20 12:00 10/27/20 11:19 *Own Med* PO 1 each BID [facility] Administration Tacrolimus 0.5 Mg 0 each 10/27/20 12:00 10/27/20 11:19 Cap *Own Med* PO 1 each BID [facility] Administration Omeprazole 20 mg 10/27/20 06:00 10/27/20 08:49 Omeprazole PO 20 mg BIDAC [facility] Administration Ondansetron HCl 4 mg 10/26/20 19:56 10/26/20 21:53 Zofran Odt PO 4 mg Q4H PRN Administration nausea, able to take PO Mycophenolate 500 Mg 0 each 10/27/20 21:00 Tab *Own Med* PO BID [facility] Prednisone 2.5 mg 10/27/20 21:00 Prednisone PO BEDTIME [facility] Prednisone 5 mg 10/28/20 09:00 Prednisone PO QAM [facility] Simvastatin 40 mg 10/27/20 21:00 Zocor PO BEDTIME [facility] Temazepam 15 mg 10/26/20 19:56 Restoril PO BEDTIME PRN Sleep Discontinued Medications Generic Name Dose Route Start Last Admin Trade Name Freq PRN Reason Stop Dose Admin Bismuth Subsalicylate 30 mg 10/26/20 19:48 Pepto Bismol PO Q4H PRN diarhea Gabapentin 300 mg 10/26/20 21:00 10/27/20 10:23 Neurontin PO Not Given TID [facility] Magnesium Sulfate 4 gm in 100 mls @ 50 mls/hr 10/26/20 13:49 10/26/20 22:01 Magnesium Sulfate In Water Premix IV 10/26/20 15:48 Not Given ONETIME ONE Sodium Chloride 1,000 mls @ 125 mls/hr 10/26/20 13:51 10/26/20 14:32 Normal Saline IV 10/26/20 21:50 125 mls/hr ASDIRECTED ONE Administration Magnesium Sulfate 2 gm in 50 mls @ 50 mls/hr 10/26/20 14:30 10/26/20 15:37 Magnesium Sulfate In Water Premix IV 10/26/20 16:29 50 mls/hr Q1H [facility] Administration Levothyroxine Sodium 88 mcg 10/27/20 06:00 10/27/20 08:49 Synthroid PO 88 mcg ACBRK [facility] Administration Mycophenolate Mofetil 1,500 mg 10/26/20 21:00 10/27/20 10:23 Cellcept PO 1,500 mg BID [facility] Administration Non-Formulary Medication 400 mg 10/26/20 21:00 10/27/20 12:32 Magnesium Oxide [Magnesium Oxide] PO Not Given BID [facility] Non-Formulary Medication 2 mg 10/26/20 21:00 Tacrolimus [Prograf] PO BEDTIME [facility] Non-Formulary Medication 1.5 mg 10/27/20 09:00 10/27/20 12:32 Tacrolimus PO Not Given QAM [facility] Ondansetron HCl 4 mg 10/26/20 13:52 10/26/20 21:53 Zofran IVPUSH 10/26/20 13:53 Not Given ONETIME ONE Prednisone 2.5 mg 10/26/20 21:12 10/26/20 22:00 Prednisone PO Not Given BEDTIME [facility] Prednisone 5 mg 10/27/20 09:00 10/27/20 10:23 Prednisone PO 5 mg QAM [facility] Administration - Re-Assessments/Exams Free Text/Narrative Re-Assessment/Exam: 10/26/20 CBC unremarkable for acute processes. CMP significant for magnesium of 1.0, creatinine of 1.98, anion gap of 18.8 and serum glucose of 259. Will replace magnesium with magnesium sulfate 4gm over 2 hours and administer NS 1 L at 125 mL/hr. Patient transferred to extended stay will repeat labs 1 hour following magnesium replacement. Patient verbalized understanding and agreement with the plan of care. Repeat of Magnesium following replacement 3.2, creatinine remains elevated at 1.8 Patient continues to experience diarrhea. Case discussed with Dr. Irwin who kindly agreed to accept patient for admission for observation. Departure - Departure Time of Disposition: 18:48 Disposition: Refer to Observation Condition: Good Clinical Impression: History of COVID-19 Diarrhea Qualifiers: Diarrhea type: unspecified type Qualified Code(s): R19.7 - Diarrhea, unspecified Nausea & vomiting Qualifiers: Vomiting type: unspecified Vomiting Intractability: non-intractable Qualified Code(s): R11.2 - Nausea with vomiting, unspecified - Discharge Information Sepsis Event Note (ED) - Evaluation Sepsis Screening Result: No Definite Risk - My Orders Last 24 Hours: My Active Orders 10/26/20 14:13 Late Tray [DIET] Routine 10/26/20 16:28 CULTURE URINE [RM] Stat 10/26/20 18:35 Admission Diagnosis [ADT] Stat Admission Status [Patient Status] [ADT] Routine - Assessment/Plan Last 24 Hours: My Active Orders 10/26/20 14:13 Late Tray [DIET] Routine 10/26/20 16:28 CULTURE URINE [RM] Stat 10/26/20 18:35 Admission Diagnosis [ADT] Stat Admission Status [Patient Status] [ADT] Routine
[2020-10-26] MEDS: Magnesium Sulfate/Water 2 GM/50 ML BAG IV SCH ×2 (14:32→15:37)
[2020-10-26 18:07] LABS: ANION GAP 17.3 mEq/L (7-13)
[2020-10-26] MEDS ORDERED: Bismuth Subsalicylate 262 MG Tab.Chew PO PRN (19:48)
[2020-10-26] MEDS ORDERED: Temazepam 15 MG Cap PO PRN (19:56)
[2020-10-26] MEDS ORDERED: Acetaminophen 325 MG Tab PO PRN (19:56)
[2020-10-26] MEDS ORDERED: 50% Dextrose in Water 50 ML Syringe IV PRN (19:58)
[2020-10-26] MEDS ORDERED: Glucagon,Human Recombinant 1 MG Vial IM PRN (19:58)
--- NOTE | 2020-10-26 20:05 | PCM.HP ---
H&P History of Present Illness - General Date of Service: 10/26/20 Admit Problem/Dx: Admission Diagnosis/Problem Admission Diagnosis/Problem Diarrhea Source of Information: Patient History Limitations: Reports: No Limitations - History of Present Illness Initial Comments - Free Text/Narative: 70-year-old with a history of lung transplant, diabetes, hypertension, hypothyroidism. The patient developed diarrhea and tested positive for Covid 19 infection on 13 October Since then she has had no pulmonary symptoms but has continued diarrhea. She has been trying to take up to 4 times a day Imodium but no help. Diarrhea happens after eating. Associated with episode a couple abdominal pain. There is no black or bloody discoloration of the stool but it is usually watery or very soft. No associated fever, No shortness of breath, no chest pain. The past 2 days she was not able to eat or drink significant amounts. - Related Data Allergies/Adverse Reactions: Allergies Allergy/AdvReac Type Severity Reaction Status Date / Time ciprofloxacin Allergy Severe Difficulty Verified 10/26/20 13:15 Breathing azithromycin [From Zithromax] Allergy Difficulty Verified 10/26/20 13:15 Breathing Iodinated Contrast Media Allergy Hives Verified 10/26/20 13:15 [Iodinated Contrast Media - IV Dye] iodine Allergy Hives Verified 10/26/20 13:15 Sulfa (Sulfonamide Allergy Cannot Verified 10/26/20 13:15 Antibiotics) Remember Home Medications: Home Meds Brimonidine/Timolol [Combigan 0.2%/0.5% Ophth Soln] 1 drop EYERT Q12HR 04/24/14 [History] Levothyroxine [Synthroid] 88 mcg PO ACBRK 04/24/14 [History] Bimatoprost [Lumigan 0.03% Ophth Soln] 2 drop EYEBOTH BEDTIME 06/28/17 [History] Calcium Carbonate/Vitamin D3 [Calcium 600-Vit D3 400 Tablet] 1 tab PO BID 06/28/17 [History] Cholecalciferol (Vitamin D3) [Vitamin D3] 1,000 unit PO DAILY 06/28/17 [History] Dapsone 50 mg PO .MOM,WED,FRI 06/28/17 [History] Lutein 6 mg PO DAILY 06/28/17 [History] Magnesium Oxide 400 mg PO BID 06/28/17 [History] Multivitamin [Multi-Day Vitamins] 1 tab PO DAILY 06/28/17 [History] Omeprazole 20 mg PO BID 06/28/17 [History] Tacrolimus 1.5 mg PO QAM 06/28/17 [History] Tacrolimus [Prograf] 2 mg PO BEDTIME 06/28/17 [History] mycophenolate mofetiL [Cellcept] 1,500 mg PO BID 06/28/17 [History] predniSONE [Prednisone] 5 mg PO QAM 06/28/17 [History] Acetaminophen 975 mg PO TID 12/07/17 [History] Furosemide 20 mg PO DAILY 12/07/17 [History] Gabapentin [Neurontin] 600 mg PO TID 12/07/17 [History] Insulin Glarg,Human.Rec.Analog [Lantus Solostar] 12 unit SUBCUT BEDTIME 12/07/17 [History] Simvastatin [Zocor] 10 mg PO BEDTIME 12/07/17 [History] predniSONE [Prednisone] 2.5 mg PO QPM 12/07/17 [History] Past Medical History HEENT History: Reports: Glaucoma, Macular Degeneration Cardiovascular History: Reports: High Cholesterol Respiratory History: Reports: COPD, Sleep Apnea, Other (See Below) Other Respiratory History: COVID 19 Gastrointestinal History: Reports: GERD Genitourinary History: Reports: None INSIDE WIRER History: Reports: Musculoskeletal History: Reports: Back Pain, Chronic Neurological History: Reports: None Psychiatric History: Reports: None Endocrine/Metabolic History: Reports: Diabetes, Type II, Hypoparathyroidism, Hypothyroidism, Vitamin D Deficiency Hematologic History: Reports: None Immunologic History: Reports: Other (See Below) Other Immunologic History: Lung transplant Oncologic (Cancer) History: Reports: None Dermatologic History: Reports: None - Infectious Disease History Infectious Disease History: Reports: Shingles - Past Surgical History Head Surgeries/Procedures: Reports: None HEENT Surgical History: Reports: None Cardiovascular Surgical History: Reports: None Respiratory Surgical History: Reports: Other (See Below) Other Respiratory Surgeries/Procedures: left lung transplant 2014 GI Surgical History: Reports: Colonoscopy Female Surgical History: Reports: Tubal Ligation Endocrine Surgical History: Reports: None Neurological Surgical History: Reports: None Musculoskeletal Surgical History: Reports: None Oncologic Surgical History: Reports: None Dermatological Surgical History: Reports: None Social & Family History - Family History Family Medical History: No Pertinent Family History - Tobacco Use Tobacco Use Status *Q: Never Tobacco User - Caffeine Use Caffeine Use: Reports: Coffee Caffeine Use Comment: 1-2 CUPS DAILY - Recreational Drug Use Recreational Drug Use: No - Living Situation & Occupation Living situation: Reports: Occupation: Retired H&P Review of Systems - Review of Systems: Review Of Systems: See Below General: Reports: Malaise, Weakness. Denies: Fever, Chills Pulmonary: Denies: Shortness of Breath, Wheezing Cardiovascular: Denies: Chest Pain, Edema Gastrointestinal: Reports: Abdominal Pain, Diarrhea, Nausea, Vomiting (minimal) Genitourinary: Denies: Dysuria Exam - Exam Exam: See Below - Vital Signs Vital Signs: Last Vital Signs Temp 97.7 F 10/26/20 16:44 Pulse 89 10/26/20 16:44 Resp 18 10/26/20 16:44 BP 124/60 10/26/20 16:44 Pulse Ox 99 10/26/20 16:44 Weight: 215 lb - Exam Quality Assessment: No: Supplemental Oxygen General: Alert, Oriented Neck: Supple Lungs: Clear to Auscultation, Normal Respiratory Effort Cardiovascular: Regular Rate, Regular Rhythm GI/Abdominal Exam: Normal Bowel Sounds, Soft, Non-Tender Extremities: No Pedal Edema Neurological: Cranial Nerves Intact Neuro Extensive - Mental Status: Alert, Oriented x3, Normal Mood/Affect Psychiatric: Alert, Normal Affect, Normal Mood - Patient Data Lab Results Last 24 hrs: Laboratory Results - last 24 hr 10/26/20 10/26/20 10/26/20 Range/Units 13:19 13:19 13:19 WBC 7.1 (5.0-10.0) 10^3/uL RBC 4.67 (4.2-5.4) 10^6/uL Hgb 13.1 (12.0-16.0) g/dL Hct 40.5 (37.0-47.0) % MCV 86.7 (80-100) fL MCH 28.1 (27.0-34.0) pg MCHC 32.3 L (33.0-35.0) g/dL Plt Count 219 (150-450) 10^3/uL Neut % (Auto) 83.4 H (42.2-75.2) % Lymph % (Auto) 8.2 L (20.5-50.1) % Angelina % (Auto) 7.3 (2-8) % Eos % (Auto) 1.0 (1.0-3.0) % Baso % (Auto) 0.1 (0.0-1.0) % D-Dimer, Quantitative 519 H (0-400) ng/mL Sodium 138 (136-145) mmol/L Potassium 3.8 (3.5-5.1) mmol/L Chloride 102 (98-107) mmol/L Carbon Dioxide 21 (21-32) mmol/L Anion Gap 18.8 H (7-13) mEq/L BUN 40 H (7-18) mg/dL Creatinine 1.98 H (0.55-1.02) mg/dL Est Cr Clr Drug Dosing 25.46 mL/min Estimated GFR (MDRD) 25 BUN/Creatinine Ratio 20.2 (No establ ref range) Glucose 259 H (74-99) mg/dL Lactic Acid (0.4-2.0) mmol/L Calcium 8.4 L (8.5-10.1) mg/dL Magnesium 1.0 L (1.8-2.4) mg/dL Total Bilirubin 0.5 (0.2-1.0) mg/dL AST 38 H (15-37) U/L ALT 79 H (14-59) U/L Alkaline Phosphatase 78 (46-116) U/L B-Natriuretic Peptide 8 (0-100) pg/ml Total Protein 6.2 L (6.4-8.2) g/dL Albumin 3.1 L (3.4-5.0) g/dL Globulin 3.1 Albumin/Globulin Ratio 1.00 Urine Color (YELLOW) Urine Appearance (CLEAR) Urine pH (5.0-9.0) Ur Specific [place] (1.005-1.030) Urine Protein (NEGATIVE) Urine Glucose (UA) (NEGATIVE) Urine Ketones (NEGATIVE) Urine Occult Blood (NEGATIVE) Urine Nitrite (NEGATIVE) Urine Bilirubin (NEGATIVE) Urine Urobilinogen (0.2-1.0) mg/dL Ur Leukocyte Esterase (NEGATIVE) Urine RBC /HPF Urine WBC (0-5/HPF) /HPF Ur Epithelial Cells (NOT SEEN) /HPF Amorphous Sediment (NOT SEEN) /HPF Urine Bacteria (0-FEW/HPF) /HPF Urine Mucus (NOT SEEN) /LPF 10/26/20 10/26/20 10/26/20 Range/Units 13:19 16:28 17:45 WBC (5.0-10.0) 10^3/uL RBC (4.2-5.4) 10^6/uL Hgb (12.0-16.0) g/dL Hct (37.0-47.0) % MCV (80-100) fL MCH (27.0-34.0) pg MCHC (33.0-35.0) g/dL Plt Count (150-450) 10^3/uL Neut % (Auto) (42.2-75.2) % Lymph % (Auto) (20.5-50.1) % Angelina % (Auto) (2-8) % Eos % (Auto) (1.0-3.0) % Baso % (Auto) (0.0-1.0) % D-Dimer, Quantitative (0-400) ng/mL Sodium 139 (136-145) mmol/L Potassium 4.3 (3.5-5.1) mmol/L Chloride 104 (98-107) mmol/L Carbon Dioxide 22 (21-32) mmol/L Anion Gap 17.3 H (7-13) mEq/L BUN 40 H (7-18) mg/dL Creatinine 1.85 H (0.55-1.02) mg/dL Est Cr Clr Drug Dosing 27.25 mL/min Estimated GFR (MDRD) 27 BUN/Creatinine Ratio (No establ ref range) Glucose 232 H (74-99) mg/dL Lactic Acid 1.5 (0.4-2.0) mmol/L Calcium 8.6 (8.5-10.1) mg/dL Magnesium 3.2 H (1.8-2.4) mg/dL Total Bilirubin (0.2-1.0) mg/dL AST (15-37) U/L ALT (14-59) U/L Alkaline Phosphatase (46-116) U/L B-Natriuretic Peptide (0-100) pg/ml Total Protein (6.4-8.2) g/dL Albumin (3.4-5.0) g/dL Globulin Albumin/Globulin Ratio Urine Color Yellow (YELLOW) Urine Appearance Slightly cloudy (CLEAR) Urine pH 5.0 (5.0-9.0) Ur Specific [place] 1.020 (1.005-1.030) Urine Protein Negative (NEGATIVE) Urine Glucose (UA) 100 H (NEGATIVE) Urine Ketones Negative (NEGATIVE) Urine Occult Blood Negative (NEGATIVE) Urine Nitrite Negative (NEGATIVE) Urine Bilirubin Negative (NEGATIVE) Urine Urobilinogen 0.2 (0.2-1.0) mg/dL Ur Leukocyte Esterase Trace H (NEGATIVE) Urine RBC 0-5 /HPF Urine WBC 30-40 H (0-5/HPF) /HPF Ur Epithelial Cells Few (NOT SEEN) /HPF Amorphous Sediment Few (NOT SEEN) /HPF Urine Bacteria Many H (0-FEW/HPF) /HPF Urine Mucus Few H (NOT SEEN) /LPF Result Diagrams: 10/26/20 13:19 10/26/20 17:45 - Problem List (1) COVID-19 SNOMED Code(s): 703256932 ICD Code: U07.1 - COVID-19 Status: Acute Current Visit: Yes (2) Diarrhea SNOMED Code(s): 23485590 ICD Code: R19.7 - DIARRHEA, UNSPECIFIED Status: Acute Current Visit: Yes (3) MARYELLEN (acute kidney injury) SNOMED Code(s): 82814089, 45836111 ICD Code: N17.9 - ACUTE KIDNEY FAILURE, UNSPECIFIED Status: Acute Current Visit: Yes (4) Hypomagnesemia SNOMED Code(s): 374113433 ICD Code: E83.42 - HYPOMAGNESEMIA Status: Acute Current Visit: Yes (5) Diabetes SNOMED Code(s): 59206743 ICD Code: E11.9 - TYPE 2 DIABETES MELLITUS WITHOUT COMPLICATIONS Status: A cute Current Visit: Yes (6) Chronic pain SNOMED Code(s): 13559765 ICD Code: G89.29 - OTHER CHRONIC PAIN Status: Acute Current Visit: Yes (7) HTN (hypertension) SNOMED Code(s): 41813517 ICD Code: I10 - ESSENTIAL (PRIMARY) HYPERTENSION Status: Acute Current Visit: Yes Problem List Initiated/Reviewed/Updated: Yes Orders Last 24hrs: Active Orders 24 hr Category Date Time Status Admission Diagnosis [ADT] Stat ADT 10/26/20 18:35 Ordered Admission Status [Patient Status] [ADT] Routine ADT 10/26/20 18:35 Active Antiembolic Devices [RC] PER UNIT ROUTINE Care 10/26/20 19:57 Ordered Glucose [Blood Glucose Check, Bedside] [RC] QIDACANDBED Care 10/26/20 19:54 Ordered Oxygen Therapy [RC] PRN Care 10/26/20 19:56 Ordered Up With Assistance [RC] ASDIRECTED Care 10/26/20 19:56 Ordered VTE/DVT Education [RC] PER UNIT ROUTINE Care 10/26/20 19:56 Ordered Vital Signs [RC] Q4H Care 10/26/20 19:56 Ordered Late Tray [DIET] Routine Diet 10/26/20 14:13 Active Regular Diet [DIET] Diet 10/26/20 Breakfast Ordered BASIC METABOLIC PANEL,BMP [CHEM] AM Lab 10/27/20 05:15 Ordered CBC WITH AUTO DIFF [HEME] AM Lab 10/27/20 05:15 Ordered CLOSTRIDIUM DIFFICILE TOX RFLX [MREF] Routine Lab 10/26/20 19:54 Ordered CULTURE STOOL [RM] Routine Lab 10/26/20 19:55 Ordered CULTURE URINE [RM] Stat Lab 10/26/20 16:28 Received MAGNESIUM [CHEM] AM Lab 10/27/20 05:11 Ordered PHOSPHORUS [CHEM] AM Lab 10/27/20 05:11 Ordered Acetaminophen [TylenoL] Med 10/26/20 19:56 Ordered 650 mg PO Q4H PRN Bimatoprost [Lumigan 0.03% Ophth Soln] Med 10/26/20 21:00 Ordered 2 drop EYEBOTH BEDTIME Bismuth Subsalicylate [Pepto Bismol] Med 10/26/20 19:48 Ordered 30 mg PO Q4H PRN Brimonidine/Timolol [Combigan 0.2%/0.5% Ophth Soln] Med 10/26/20 21:00 Ordered 1 drop EYERT Q12HR Dapsone [Dapsone] Med 10/26/20 20:00 Ordered 50 mg PO .MOM,WED,FRI Dextrose 50% in Water Med 10/26/20 19:58 Ordered 50 ml IV ASDIRECTED PRN Gabapentin [Neurontin] Med 10/26/20 21:00 Ordered 300 mg PO TID Glucagon,Human Recombinant [GlucaGen] Med 10/26/20 19:58 Ordered 1 mg IM ASDIRECTED PRN Heparin Sodium Med 10/26/20 22:00 Ordered 5,000 units SUBCUT Q8HR Insulin Glarg,Human.Rec.Analog [Lantus Solostar] Med 10/26/20 21:00 Ordered 12 unit SUBCUT BEDTIME Insulin Lispro [HumaLOG] Med 10/26/20 21:00 Ordered See Protocol SUBCUT WITHMEALSANDBED Levothyroxine [Synthroid] Med 10/27/20 06:00 Ordered 88 mcg PO ACBRK Magnesium Oxide [Magnesium Oxide] Med 10/26/20 21:00 Ordered 400 mg PO BID Multivitamin [Multi-Day Vitamins] Med 10/27/20 09:00 Ordered 1 tab PO DAILY Omeprazole Med 10/26/20 21:00 Ordered 20 mg PO BID Ondansetron [Zofran ODT] Med 10/26/20 19:56 Ordered 4 mg PO Q4H PRN Sodium Chloride 0.9% [Normal Saline] 1,000 ml Med 10/26/20 13:51 Active IV ASDIRECTED Tacrolimus Med 10/27/20 09:00 Ordered 1.5 mg PO QAM Tacrolimus [Prograf] Med 10/26/20 21:00 Ordered 2 mg PO BEDTIME Temazepam [Restoril] Med 10/26/20 19:56 Ordered 15 mg PO BEDTIME PRN mycophenolate mofetiL [Cellcept] Med 10/26/20 21:00 Ordered 1,500 mg PO BID predniSONE Med 10/27/20 09:00 Ordered 5 mg PO QAM predniSONE [Prednisone] Med 10/26/20 20:00 Ordered 2.5 mg PO QPM Antiembolic Hose [OM.PC] Per Unit Routine Oth 10/26/20 19:57 Ordered Isolation [COMM] Stat Oth 10/26/20 19:55 Ordered Resuscitation Status Routine Resus Stat 10/26/20 19:56 Ordered Medication Orders Acetaminophen (Tylenol) 650 mg PO Q4H PRN PRN Reason: Pain (Mild 1-3)/fever Bismuth Subsalicylate (Pepto Bismol) 30 mg PO Q4H PRN PRN Reason: diarhea Dextrose/Water (Dextrose 50% In Water) 50 ml IV ASDIRECTED PRN PRN Reason: Hypoglycemia Gabapentin (Neurontin) 300 mg PO TID EFRAÍN Glucagon (Glucagen) 1 mg IM ASDIRECTED PRN PRN Reason: Hypoglycemia Heparin Sodium (Porcine) (Heparin Sodium) 5,000 units SUBCUT Q8HR EFRAÍN Sodium Chloride (Normal Saline) 1,000 mls @ 125 mls/hr IV ASDIRECTED ONE Stop: 10/26/20 21:50 Last Admin: 10/26/20 14:32 Dose: 125 mls/hr Documented by: AILEEN Insulin Human Lispro (Humalog) 0 unit SUBCUT WITHMEALSANDBED EFRAÍN; Protocol Levothyroxine Sodium (Synthroid) 88 mcg PO ACBRK EFRAÍN Mycophenolate Mofetil (Cellcept) 1,500 mg PO BID EFRAÍN Non-Formulary Medication (Bimatoprost [Lumigan 0.03% Ophth Soln]) 2 drop EYEBOTH BEDTIME EFRAÍN Non-Formulary Medication (Brimonidine/Timolol [Combigan 0.2%/0.5% Ophth Soln]) 1 drop EYERT Q12HR EFRAÍN Non-Formulary Medication (Dapsone [Dapsone]) 50 mg PO .MOM,WED,FRI EFRAÍN Non-Formulary Medication (Insulin Glarg,Human.Rec.Analog [Lantus Solostar]) 12 unit SUBCUT BEDTIME EFRAÍN Non-Formulary Medication (Magnesium Oxide [Magnesium Oxide]) 400 mg PO BID EFRAÍN Non-Formulary Medication (Multivitamin [Multi-Day Vitamins]) 1 tab PO DAILY EFRAÍN Non-Formulary Medication (Prednisone [Prednisone]) 2.5 mg PO QPM EFRAÍN Non-Formulary Medication (Tacrolimus [Prograf]) 2 mg PO BEDTIME EFRAÍN Non-Formulary Medication (Tacrolimus) 1.5 mg PO QAM EFRAÍN Omeprazole (Omeprazole) 20 mg PO BID EFRAÍN Ondansetron HCl (Zofran Odt) 4 mg PO Q4H PRN PRN Reason: nausea, able to take PO Prednisone (Prednisone) 5 mg PO QAM EFRAÍN Temazepam (Restoril) 15 mg PO BEDTIME PRN PRN Reason: Sleep Assessment/Plan Comment:: 70-year-old with a history of lung transplant, diabetes, hypertension, hypothyroidism. The patient developed diarrhea and tested positive for Covid 19 infection on 13 October Since then she has had no pulmonary symptoms but has continued diarrhea. She has been trying to take up to 4 times a day Imodium but no help. Diarrhea happens after eating. Associated with episode a couple abdominal pain. There is no black or bloody discoloration of the stool but it is usually watery or very soft. Covid 19 infection Resulting in diarrhea No pulmonary symptoms Imodium did not help We will try Pepto-Bismol Check c diff, stool cx. Acute renal failure Likely secondary dehydration Will hydrate the patient Follow electrolytes and replace them as needed Hold Lasix Hold losartan for HTN Hypomagnesemia Was replaced Recheck in the morning Diabetes Well give Lantus at night Status post lung transplant Continue Cellcept, prograf Chronic pain Decreased Neurontin with the renal failure Hypothyroidism Treat with Synthroid dVT prophyaxis with jordan
[2020-10-26] MEDS ORDERED: TACROLIMUS 2 MG PO SCH (21:00)
[2020-10-26] MEDS ORDERED: Non-Formulary Medication 1 Each (Brimonidine/Timolol [Combigan 0.2%/0.5% Ophth Soln] 1 DRO EYERT SCH (21:00)
[2020-10-26] MEDS ORDERED: BIMATOPROST EYEBOTH SCH (21:00)
[2020-10-26] MEDS ORDERED: predniSONE 5 MG Tab PO SCH (21:12)
[2020-10-26] MEDS: Insulin Lispro 100 Units/ML 3 ML Vial SUBCUT SCH (21:43)
[2020-10-26] MEDS: Heparin Sodium 5,000 Units/ML Vial SUBCUT SCH (21:44)
[2020-10-26] MEDS: Ondansetron 4 MG Tab.DIS PO PRN (21:53)
[2020-10-26] MEDS: Gabapentin 300 MG Cap PO SCH (22:00)
[2020-10-26] MEDS: Mycophenolate Mofetil 250 MG Cap PO SCH (22:00)
[2020-10-27] MEDS: Heparin Sodium 5,000 Units/ML Vial SUBCUT SCH ×3 (05:57→21:34)
[2020-10-27] MEDS ORDERED: Levothyroxine 88 MCG Tab PO SCH (06:00)
[2020-10-27 07:14] LABS: ANION GAP 18.2 mEq/L (7-13)
[2020-10-27] MEDS: Omeprazole 20 MG Cap.CR PO SCH ×2 (08:49→15:43)
[2020-10-27] MEDS: Insulin Lispro 100 Units/ML 3 ML Vial SUBCUT SCH ×4 (08:50→21:30)
[2020-10-27] MEDS ORDERED: predniSONE 5 MG Tab PO SCH (09:00)
[2020-10-27] MEDS ORDERED: TACROLIMUS 1.5 MG PO SCH (09:00)
[2020-10-27] MEDS: Multivitamins,Therapeutic Tab PO SCH (10:23)
[2020-10-27] MEDS: Mycophenolate Mofetil 250 MG Cap PO SCH (10:23)
[2020-10-27] MEDS: Gabapentin 300 MG Cap PO SCH (10:23)
[2020-10-27] MEDS ORDERED: Loperamide 2 MG Cap PO PRN (12:05)
--- NOTE | 2020-10-27 12:09 | PCM.PN ---
- General Info Date of Service: 10/27/20 Admission Dx/Problem (Free Text): Admission Diagnosis/Problem Admission Diagnosis/Problem Diarrhea Subjective Update: continues to have nausea, 1 episode of vomiting Had 1 loose bowel movement overnight Continues to have weakness No shortness of breath, no chest pain Does have generalized achiness, discomfort Has a history of chronic back pain Functional Status: Denies: Tolerating Diet - Review of Systems General: Reports: Weakness, Fatigue, Malaise. Denies: Fever Pulmonary: Denies: Shortness of Breath Cardiovascular: Denies: Chest Pain, Edema Gastrointestinal: Reports: Abdominal Pain (epigastric discomfort), Diarrhea, Nausea, Vomiting Neurological: Denies: Confusion - Patient Data Vitals - Most Recent: Last Vital Signs Temp 97.7 F 10/27/20 08:00 Pulse 86 10/27/20 08:00 Resp 18 10/27/20 08:00 BP 116/53 L 10/27/20 08:00 Pulse Ox 95 10/27/20 08:00 Weight - Most Recent: 215 lb I&O - Last 24 Hours: Intake & Output 10/26/20 10/27/20 10/27/20 22:59 06:59 14:59 Intake Total 300 120 Output Total 700 Balance -400 120 Lab Results Last 24 Hours: Laboratory Results - last 24 hr 10/26/20 10/26/20 10/26/20 Range/Units 13:19 13:19 13:19 WBC 7.1 (5.0-10.0) 10^3/uL RBC 4.67 (4.2-5.4) 10^6/uL Hgb 13.1 (12.0-16.0) g/dL Hct 40.5 (37.0-47.0) % MCV 86.7 (80-100) fL MCH 28.1 (27.0-34.0) pg MCHC 32.3 L (33.0-35.0) g/dL Plt Count 219 (150-450) 10^3/uL Neut % (Auto) 83.4 H (42.2-75.2) % Lymph % (Auto) 8.2 L (20.5-50.1) % [place] % (Auto) 7.3 (2-8) % Eos % (Auto) 1.0 (1.0-3.0) % Baso % (Auto) 0.1 (0.0-1.0) % D-Dimer, Quantitative 519 H (0-400) ng/mL Sodium 138 (136-145) mmol/L Potassium 3.8 (3.5-5.1) mmol/L Chloride 102 (98-107) mmol/L Carbon Dioxide 21 (21-32) mmol/L Anion Gap 18.8 H (7-13) mEq/L BUN 40 H (7-18) mg/dL Creatinine 1.98 H (0.55-1.02) mg/dL Est Cr Clr Drug Dosing 25.46 mL/min Estimated GFR (MDRD) 25 BUN/Creatinine Ratio 20.2 (No establ ref range) Glucose 259 H (74-99) mg/dL POC Glucose (70-105) mg/dl Lactic Acid (0.4-2.0) mmol/L Calcium 8.4 L (8.5-10.1) mg/dL Phosphorus (2.6-4.7) mg/dL Magnesium 1.0 L (1.8-2.4) mg/dL Total Bilirubin 0.5 (0.2-1.0) mg/dL AST 38 H (15-37) U/L ALT 79 H (14-59) U/L Alkaline Phosphatase 78 (46-116) U/L B-Natriuretic Peptide 8 (0-100) pg/ml Total Protein 6.2 L (6.4-8.2) g/dL Albumin 3.1 L (3.4-5.0) g/dL Globulin 3.1 Albumin/Globulin Ratio 1.00 Urine Color (YELLOW) Urine Appearance (CLEAR) Urine pH (5.0-9.0) Ur Specific [place] (1.005-1.030) Urine Protein (NEGATIVE) Urine Glucose (UA) (NEGATIVE) Urine Ketones (NEGATIVE) Urine Occult Blood (NEGATIVE) Urine Nitrite (NEGATIVE) Urine Bilirubin (NEGATIVE) Urine Urobilinogen (0.2-1.0) mg/dL Ur Leukocyte Esterase (NEGATIVE) Urine RBC /HPF Urine WBC (0-5/HPF) /HPF Ur Epithelial Cells (NOT SEEN) /HPF Amorphous Sediment (NOT SEEN) /HPF Urine Bacteria (0-FEW/HPF) /HPF Urine Mucus (NOT SEEN) /LPF 01/14/21 01/14/21 01/14/21 Range/Units 13:19 16:28 17:45 WBC (5.0-10.0) 10^3/uL RBC (4.2-5.4) 10^6/uL Hgb (12.0-16.0) g/dL Hct (37.0-47.0) % MCV (80-100) fL MCH (27.0-34.0) pg MCHC (33.0-35.0) g/dL Plt Count (150-450) 10^3/uL Neut % (Auto) (42.2-75.2) % Lymph % (Auto) (20.5-50.1) % [place] % (Auto) (2-8) % Eos % (Auto) (1.0-3.0) % Baso % (Auto) (0.0-1.0) % D-Dimer, Quantitative (0-400) ng/mL Sodium 139 (136-145) mmol/L Potassium 4.3 (3.5-5.1) mmol/L Chloride 104 (98-107) mmol/L Carbon Dioxide 22 (21-32) mmol/L Anion Gap 17.3 H (7-13) mEq/L BUN 40 H (7-18) mg/dL Creatinine 1.85 H (0.55-1.02) mg/dL Est Cr Clr Drug Dosing 27.25 mL/min Estimated GFR (MDRD) 27 BUN/Creatinine Ratio (No establ ref range) Glucose 232 H (74-99) mg/dL POC Glucose (70-105) mg/dl Lactic Acid 1.5 (0.4-2.0) mmol/L Calcium 8.6 (8.5-10.1) mg/dL Phosphorus (2.6-4.7) mg/dL Magnesium 3.2 H (1.8-2.4) mg/dL Total Bilirubin (0.2-1.0) mg/dL AST (15-37) U/L ALT (14-59) U/L Alkaline Phosphatase (46-116) U/L B-Natriuretic Peptide (0-100) pg/ml Total Protein (6.4-8.2) g/dL Albumin (3.4-5.0) g/dL Globulin Albumin/Globulin Ratio Urine Color Yellow (YELLOW) Urine Appearance Slightly cloudy (CLEAR) Urine pH 5.0 (5.0-9.0) Ur Specific [place] 1.020 (1.005-1.030) Urine Protein Negative (NEGATIVE) Urine Glucose (UA) 100 H (NEGATIVE) Urine Ketones Negative (NEGATIVE) Urine Occult Blood Negative (NEGATIVE) Urine Nitrite Negative (NEGATIVE) Urine Bilirubin Negative (NEGATIVE) Urine Urobilinogen 0.2 (0.2-1.0) mg/dL Ur Leukocyte Esterase Trace H (NEGATIVE) Urine RBC 0-5 /HPF Urine WBC 30-40 H (0-5/HPF) /HPF Ur Epithelial Cells Few (NOT SEEN) /HPF Amorphous Sediment Few (NOT SEEN) /HPF Urine Bacteria Many H (0-FEW/HPF) /HPF Urine Mucus Few H (NOT SEEN) /LPF 10/26/20 10/27/20 10/27/20 Range/Units 21:04 06:10 06:10 WBC 7.0 (5.0-10.0) 10^3/uL RBC 4.38 (4.2-5.4) 10^6/uL Hgb 12.3 (12.0-16.0) g/dL Hct 38.0 (37.0-47.0) % MCV 86.8 (80-100) fL MCH 28.1 (27.0-34.0) pg MCHC 32.4 L (33.0-35.0) g/dL Plt Count 205 (150-450) 10^3/uL Neut % (Auto) 83.8 H (42.2-75.2) % Lymph % (Auto) 8.2 L (20.5-50.1) % [place] % (Auto) 6.2 (2-8) % Eos % (Auto) 1.7 (1.0-3.0) % Baso % (Auto) 0.1 (0.0-1.0) % D-Dimer, Quantitative (0-400) ng/mL Sodium 141 (136-145) mmol/L Potassium 4.2 (3.5-5.1) mmol/L Chloride 107 (98-107) mmol/L Carbon Dioxide 20 L (21-32) mmol/L Anion Gap 18.2 H (7-13) mEq/L BUN 37 H (7-18) mg/dL Creatinine 1.86 H (0.55-1.02) mg/dL Est Cr Clr Drug Dosing 27.10 mL/min Estimated GFR (MDRD) 27 BUN/Creatinine Ratio (No establ ref range) Glucose 169 H (74-99) mg/dL POC Glucose 179 H (70-105) mg/dl Lactic Acid (0.4-2.0) mmol/L Calcium 8.0 L (8.5-10.1) mg/dL Phosphorus 3.7 (2.6-4.7) mg/dL Magnesium 2.2 (1.8-2.4) mg/dL Total Bilirubin (0.2-1.0) mg/dL AST (15-37) U/L ALT (14-59) U/L Alkaline Phosphatase (46-116) U/L B-Natriuretic Peptide (0-100) pg/ml Total Protein (6.4-8.2) g/dL Albumin (3.4-5.0) g/dL Globulin Albumin/Globulin Ratio Urine Color (YELLOW) Urine Appearance (CLEAR) Urine pH (5.0-9.0) Ur Specific [place] (1.005-1.030) Urine Protein (NEGATIVE) Urine Glucose (UA) (NEGATIVE) Urine Ketones (NEGATIVE) Urine Occult Blood (NEGATIVE) Urine Nitrite (NEGATIVE) Urine Bilirubin (NEGATIVE) Urine Urobilinogen (0.2-1.0) mg/dL Ur Leukocyte Esterase (NEGATIVE) Urine RBC /HPF Urine WBC (0-5/HPF) /HPF Ur Epithelial Cells (NOT SEEN) /HPF Amorphous Sediment (NOT SEEN) /HPF Urine Bacteria (0-FEW/HPF) /HPF Urine Mucus (NOT SEEN) /LPF 10/27/20 10/27/20 Range/Units 07:59 11:57 WBC (5.0-10.0) 10^3/uL RBC (4.2-5.4) 10^6/uL Hgb (12.0-16.0) g/dL Hct (37.0-47.0) % MCV (80-100) fL MCH (27.0-34.0) pg MCHC (33.0-35.0) g/dL Plt Count (150-450) 10^3/uL Neut % (Auto) (42.2-75.2) % Lymph % (Auto) (20.5-50.1) % [place] % (Auto) (2-8) % Eos % (Auto) (1.0-3.0) % Baso % (Auto) (0.0-1.0) % D-Dimer, Quantitative (0-400) ng/mL Sodium (136-145) mmol/L Potassium (3.5-5.1) mmol/L Chloride (98-107) mmol/L Carbon Dioxide (21-32) mmol/L Anion Gap (7-13) mEq/L BUN (7-18) mg/dL Creatinine (0.55-1.02) mg/dL Est Cr Clr Drug Dosing mL/min Estimated GFR (MDRD) BUN/Creatinine Ratio (No establ ref range) Glucose (74-99) mg/dL POC Glucose 180 H 195 H (70-105) mg/dl Lactic Acid (0.4-2.0) mmol/L Calcium (8.5-10.1) mg/dL Phosphorus (2.6-4.7) mg/dL Magnesium (1.8-2.4) mg/dL Total Bilirubin (0.2-1.0) mg/dL AST (15-37) U/L ALT (14-59) U/L Alkaline Phosphatase (46-116) U/L B-Natriuretic Peptide (0-100) pg/ml Total Protein (6.4-8.2) g/dL Albumin (3.4-5.0) g/dL Globulin Albumin/Globulin Ratio Urine Color (YELLOW) Urine Appearance (CLEAR) Urine pH (5.0-9.0) Ur Specific [place] (1.005-1.030) Urine Protein (NEGATIVE) Urine Glucose (UA) (NEGATIVE) Urine Ketones (NEGATIVE) Urine Occult Blood (NEGATIVE) Urine Nitrite (NEGATIVE) Urine Bilirubin (NEGATIVE) Urine Urobilinogen (0.2-1.0) mg/dL Ur Leukocyte Esterase (NEGATIVE) Urine RBC /HPF Urine WBC (0-5/HPF) /HPF Ur Epithelial Cells (NOT SEEN) /HPF Amorphous Sediment (NOT SEEN) /HPF Urine Bacteria (0-FEW/HPF) /HPF Urine Mucus (NOT SEEN) /LPF [place] Results Last 24 Hours: Microbiology 10/26/20 16:28 Urine Culture - Preliminary Urine, Voided Med Orders - Current: Current Medications Acetaminophen (Tylenol) 650 mg PO Q4H PRN PRN Reason: Pain (Mild 1-3)/fever Bismuth Subsalicylate (Pepto Bismol) 30 mg PO TID [facility] Bumetanide (Bumex) 0.5 mg PO DAILY [facility] Dextrose/Water (Dextrose 50% In Water) 50 ml IV ASDIRECTED PRN PRN Reason: Hypoglycemia Glipizide (Glucotrol) 10 mg PO BID [facility] Glucagon (Glucagen) 1 mg IM ASDIRECTED PRN PRN Reason: Hypoglycemia Heparin Sodium (Porcine) (Heparin Sodium) 5,000 units SUBCUT Q8HR [facility] Last Admin: 10/27/20 05:57 Dose: Not Given Documented by: Ciprofloxacin/Dextrose 400 mg/ (Premix) 200 mls @ 200 mls/hr IV DAILY [facility] Insulin Glargine (Lantus) 12 unit SUBCUT BEDTIME [facility] Insulin Human Lispro (Humalog) 0 unit SUBCUT WITHMEALSANDBED [facility]; Protocol Last Admin: 10/27/20 08:50 Dose: Not Given Documented by: Levothyroxine Sodium (Levothyroxine) 112 mcg PO ACBRK [facility] Magnesium Oxide (Magnesium Oxide) 1,200 mg PO BIDMEALS [facility] Multivitamins (Thera) 1 each PO DAILY [facility] Last Admin: 10/27/20 10:23 Dose: 1 each Documented by: Non-Formulary Medication 1 Each ( Bimatoprost [Lumigan 0.01% Ophth Soln] 2 Drop) 1 drop EYEBOTH BEDTIME [facility] Non-Formulary Medication (Brimonidine/Timolol [Combigan 0.2%/0.5% Ophth Soln]) 1 drop EYERT Q12HR [facility] Dapsone [Dapsone] 25 (Mg Tab) 0 mg PO [id number] [facility] Tacrolimus 1 Mg Cap (*Own Med*) 0 each PO BID [facility] Last Admin: 10/27/20 11:19 Dose: 1 each Documented by: Tacrolimus 0.5 Mg (Cap *Own Med*) 0 each PO BID [facility] Last Admin: 10/27/20 11:19 Dose: 1 each Documented by: Omeprazole (Omeprazole) 20 mg PO BIDAC [facility] Last Admin: 10/27/20 08:49 Dose: 20 mg Documented by: Ondansetron HCl (Zofran Odt) 4 mg PO Q4H PRN PRN Reason: nausea, able to take PO Last Admin: 10/26/20 21:53 Dose: 4 mg Documented by: Mycophenolate 500 Mg (Tab *Own Med*) 0 each PO BID [facility] Prednisone (Prednisone) 2.5 mg PO BEDTIME EFRAÍN Prednisone (Prednisone) 5 mg PO QAM EFRAÍN Simvastatin (Zocor) 40 mg PO BEDTIME EFRAÍN Temazepam (Restoril) 15 mg PO BEDTIME PRN PRN Reason: Sleep Discontinued Medications Bismuth Subsalicylate (Pepto Bismol) 30 mg PO Q4H PRN PRN Reason: diarhea Gabapentin (Neurontin) 300 mg PO TID [facility] Last Admin: 10/27/20 10:23 Dose: Not Given Documented by: Magnesium Sulfate (Magnesium Sulfate In Water Premix) 4 gm in 100 mls @ 50 mls/hr IV ONETIME ONE Stop: 10/26/20 15:48 Last Admin: 10/26/20 22:01 Dose: Not Given Documented by: Sodium Chloride (Normal Saline) 1,000 mls @ 125 mls/hr IV ASDIRECTED ONE Stop: 10/26/20 21:50 Last Admin: 10/26/20 14:32 Dose: 125 mls/hr Documented by: Magnesium Sulfate (Magnesium Sulfate In Water Premix) 2 gm in 50 mls @ 50 mls/hr IV Q1H EFRAÍN Stop: 10/26/20 16:29 Last Admin: 10/26/20 15:37 Dose: 50 mls/hr Documented by: Levothyroxine Sodium (Synthroid) 88 mcg PO ACBRK [facility] Last Admin: 10/27/20 08:49 Dose: 88 mcg Documented by: Mycophenolate Mofetil (Cellcept) 1,500 mg PO BID [facility] Last Admin: 10/27/20 10:23 Dose: 1,500 mg Documented by: Non-Formulary Medication (Magnesium Oxide [Magnesium Oxide]) 400 mg PO BID [facility] Non-Formulary Medication (Tacrolimus [Prograf]) 2 mg PO BEDTIME [facility] Non-Formulary Medication (Tacrolimus) 1.5 mg PO QAM [facility] Ondansetron HCl (Zofran) 4 mg IVPUSH ONETIME ONE Stop: 10/26/20 13:53 Last Admin: 10/26/20 21:53 Dose: Not Given Documented by: Prednisone (Prednisone) 2.5 mg PO BEDTIME [facility] Last Admin: 10/26/20 22:00 Dose: Not Given Documented by: Prednisone (Prednisone) [facility] [place] Last Admin: 10/27/20 10:23 Dose: 5 mg Documented by: - Exam Quality Assessment: No: Supplemental Oxygen General: Alert, Oriented Neck: Supple Lungs: Clear to Auscultation, Normal Respiratory Effort Cardiovascular: Regular Rate, Regular Rhythm GI/Abdominal Exam: Normal Bowel Sounds, Soft, Non-Tender. No: Distended, Tender Skin: Warm, Dry Neurological: No New Focal Deficit Psy/Mental Status: Alert, Normal Affect Sepsis Event Note - Evaluation Sepsis Screening Result: No Definite Risk - Focused Exam Vital Signs: Vital Signs Temp Pulse Resp BP Pulse Ox 10/27/20 08:00 97.7 F 86 18 116/53 L 95 10/27/20 04:00 98.8 F 84 16 136/66 99 - Problem List & Annotations (1) COVID-19 SNOMED Code(s): 816651749 Code(s): U07.1 - COVID-19 Status: Acute Current Visit: Yes (2) Diarrhea SNOMED Code(s): 03583107 Code(s): R19.7 - DIARRHEA, UNSPECIFIED Status: Acute Current Visit: Yes (3) MARYELLEN (acute kidney injury) SNOMED Code(s): 88669400, 91190466 Code(s): N17.9 - ACUTE KIDNEY FAILURE, UNSPECIFIED Status: Acute Current Visit: Yes (4) Hypomagnesemia SNOMED Code(s): 973213614 Code(s): E83.42 - HYPOMAGNESEMIA Status: Acute Current Visit: Yes (5) Diabetes SNOMED Code(s): 93203413 Code(s): E11.9 - TYPE 2 DIABETES MELLITUS WITHOUT COMPLICATIONS Status: Acute Current Visit: Yes (6) Chronic pain SNOMED Code(s): 82032614 Code(s): G89.29 - OTHER CHRONIC PAIN Status: Acute Current Visit: Yes (7) HTN (hypertension) SNOMED Code(s): 09238084 Code(s): I10 - ESSENTIAL (PRIMARY) HYPERTENSION Status: Acute Current Visit: Yes - Problem List Review Problem List Initiated/Reviewed/Updated: Yes - My Orders Last 24 Hours: My Active Orders 10/26/20 19:54 Glucose [Blood Glucose Check, Bedside] [RC] QIDACANDBED 10/26/20 19:55 CULTURE STOOL [RM] Routine Isolation [COMM] Stat 10/26/20 19:56 Oxygen Therapy [RC] PRN Up With Assistance [RC] ASDIRECTED VTE/DVT Education [RC] 08,20 Vital Signs [RC] 20,00,04,08,12,16 Acetaminophen [TylenoL] 650 mg PO Q4H PRN Ondansetron [Zofran ODT] 4 mg PO Q4H PRN Temazepam [Restoril] 15 mg PO BEDTIME PRN Resuscitation Status Routine 10/26/20 19:57 Antiembolic Devices [RC] 08,20 Antiembolic Hose [OM.PC] Per Unit Routine 10/26/20 19:58 Dextrose 50% in Water 50 ml IV ASDIRECTED PRN Glucagon,Human Recombinant [GlucaGen] 1 mg IM ASDIRECTED PRN 10/26/20 20:00 Dapsone [Dapsone] 50 mg PO .,FRI,Fri10/26/20 21:00 Bimatoprost [Lumigan 0.03% Ophth Soln] 2 drop EYEBOTH BEDTIME Brimonidine/Timolol [Combigan 0.2%/0.5% Ophth Soln] 1 drop EYERT Q12HR Insulin Lispro [HumaLOG] See Protocol SUBCUT WITHMEALSANDBED 10/26/20 22:00 Heparin Sodium 5,000 units SUBCUT Q8HR 10/27/20 06:00 Omeprazole 20 mg PO BIDAC 10/27/20 08:50 CLOSTRIDIUM DIFFICILE TOX RFLX [MREF] Routine SHIGA TOXIN 1 & 2 [MREF] Routine 10/27/20 09:00 Multivitamins,Therapeutic [Thera] 1 each PO DAILY 10/27/20 12:00 Non-Formulary Medication [NF Drug] 0 each PO BID Non-Formulary Medication [NF Drug] 0 each PO BID 10/27/20 12:05 Loperamide [Imodium] 2 mg PO Q6H PRN 10/27/20 12:15 Ciprofloxacin in D5W [Cipro in D5W 400 MG/200 ML] 400 mg Premix Bag 1 bag IV DAILY 10/27/20 14:00 Bismuth Subsalicylate [Pepto Bismol] 30 mg PO TID 10/27/20 18:00 Magnesium Oxide 1,200 mg PO BIDM 10/27/20 21:00 Insulin Glarg,Human.Rec.Analog [LantUS] 12 unit SUBCUT BEDTIME Patient's Own Medication [Ptom] 0 each PO BID Simvastatin [Zocor] 40 mg PO BEDTIME glipiZIDE [Glucotrol] 10 mg PO BID predniSONE 2.5 mg PO BEDTIME 10/28/20 05:15 BASIC METABOLIC PANEL,BMP [CHEM] AM CBC WITH AUTO DIFF [HEME] AM 10/28/20 06:00 Levothyroxine [Synthroid] 112 mcg PO ACBRK 10/28/20 09:00 Bumetanide [Bumetanide] 0.5 mg PO DAILY predniSONE 5 mg PO QAM - Plan Plan:: 70-year-old with a history of lung transplant, diabetes, hypertension, hypothyroidism. The patient developed diarrhea and tested positive for Covid 19 infection on 13 October Since then she has had no pulmonary symptoms but has continued diarrhea. She has been trying to take up to 4 times a day Imodium but no help. Diarrhea happens after eating. Associated with episode a couple abdominal pain. There is no black or bloody discoloration of the stool but it is usually watery or very soft. Covid 19 infection Resulting in diarrhea No pulmonary symptoms Imodium did not help We will try Pepto-Bismol as scheduled Imodium as needed Check c diff, stool cx. called [facility] discussed with GI specialist Dr. Ca At this point colonoscopy, endoscopy is not indicated Conservative management Acute renal failure Baseline creatinine 1.2 on 16 October in the [facility] Epic Likely secondary dehydration Will continue to hydrate the patient Follow electrolytes and replace them as needed Hold Lasix Hold losartan for HTN Hypomagnesemia Was replaced Diabetes Well give Lantus at night Status post lung transplant Continue Cellcept, prograf Chronic pain Decreased Neurontin with the renal failure Hypothyroidism Treat with Synthroid dVT prophyaxis with sq heparin
--- NOTE | 2020-10-27 12:17 | PCM.SN.2 ---
- Free Text/Narrative Note: noted to have abnormal ua ucx shows gram negs will start cipro IV
[2020-10-27] MEDS: Non-Formulary Medication 1 Each (Magnesium Oxide [Magnesium Oxide] 400 MG) PO SCH (12:32)
[2020-10-27] MEDS ORDERED: Bismuth Subsalicylate 262 MG Tab.Chew PO SCH (14:00)
[2020-10-27] MEDS: Ciprofloxacin in D5W 400 MG in Premix Bag 1 BAG IV SCH ×2 (15:48)
[2020-10-27] MEDS: Bismuth Subsalicylate 262 MG Tab.Chew PO SCH ×2 (16:38→21:03)
[2020-10-27] MEDS ORDERED: DAPSONE 25 MG PO SCH (21:00)
[2020-10-27] MEDS: Simvastatin 40 MG Tab PO SCH ×2 (21:03→21:14)
[2020-10-27] MEDS: glipiZIDE 5 MG Tab PO SCH (21:06)
[2020-10-27] MEDS: PREDNISONE 5 MG PO SCH (21:09)
[2020-10-27] MEDS: MYCOPHENOLATE 500 MG PO SCH (21:12)
[2020-10-27] MEDS: Insulin Glarg,Human.Rec.Analog 100 Unit/ML SUBCUT SCH (21:32)
[2020-10-28] MEDS: Levothyroxine 112 MCG Tab PO SCH (06:12)
[2020-10-28] MEDS: Omeprazole 20 MG Cap.CR PO SCH ×2 (06:12→16:13)
[2020-10-28] MEDS: Heparin Sodium 5,000 Units/ML Vial SUBCUT SCH ×4 (06:13→21:13)
[2020-10-28 07:10] LABS: ANION GAP 16.4 mEq/L (7-13)
[2020-10-28] MEDS: Insulin Lispro 100 Units/ML 3 ML Vial SUBCUT SCH ×4 (09:13→20:41)
[2020-10-28] MEDS: Bismuth Subsalicylate 262 MG Tab.Chew PO SCH ×3 (09:14→20:23)
[2020-10-28] MEDS: Bumetanide 1 MG Tab PO SCH (09:15)
[2020-10-28] MEDS: Multivitamins,Therapeutic Tab PO SCH (09:15)
[2020-10-28] MEDS: glipiZIDE 5 MG Tab PO SCH ×2 (09:16→20:22)
[2020-10-28] MEDS: MYCOPHENOLATE 500 MG PO SCH ×2 (09:17→20:27)
[2020-10-28] MEDS: PREDNISONE 5 MG PO SCH ×2 (09:18→20:38)
[2020-10-28] MEDS: Ciprofloxacin in D5W 400 MG in Premix Bag 1 BAG IV SCH ×2 (09:21)
--- NOTE | 2020-10-28 13:55 | PCM.PN ---
- General Info Date of Service: 10/28/20 Admission Dx/Problem (Free Text): Admission Diagnosis/Problem Admission Diagnosis/Problem Diarrhea Subjective Update: continues to have nausea, but no vomiting had 3 loose bowel movements yesterday Continues to have weakness No shortness of breath, no chest pain Does have generalized achiness, discomfort Has a history of chronic back pain has been eating little, had milk and cereal this morning Functional Status: Reports: Tolerating Diet (admitted) - Review of Systems General: Reports: Weakness, Fatigue, Malaise Pulmonary: Denies: Shortness of Breath Cardiovascular: Denies: Chest Pain Gastrointestinal: Reports: Diarrhea, Nausea. Denies: Abdominal Pain Genitourinary: Denies: Frequency Neurological: Denies: Dizziness - Patient Data Vitals - Most Recent: Last Vital Signs Temp 98.1 F 10/28/20 12:00 Pulse 81 10/28/20 12:00 Resp 18 10/28/20 12:00 BP 121/57 L 10/28/20 12:00 Pulse Ox 94 L 10/28/20 12:00 Weight - Most Recent: 215 lb I&O - Last 24 Hours: Intake & Output 10/27/20 10/28/20 10/28/20 22:59 06:59 14:59 Intake Total 840 300 420 Balance 840 300 420 Lab Results Last 24 Hours: Laboratory Results - last 24 hr 10/27/20 10/27/20 10/28/20 Range/Units 16:56 20:22 06:02 WBC 6.5 (5.0-10.0) 10^3/uL RBC 4.26 (4.2-5.4) 10^6/uL Hgb 12.0 (12.0-16.0) g/dL Hct 36.9 L (37.0-47.0) % MCV 86.6 (80-100) fL MCH 28.2 (27.0-34.0) pg MCHC 32.5 L (33.0-35.0) g/dL Plt Count 188 (150-450) 10^3/uL Neut % (Auto) 83.4 H (42.2-75.2) % Lymph % (Auto) 8.6 L (20.5-50.1) % [place] % (Auto) 6.3 (2-8) % Eos % (Auto) 1.5 (1.0-3.0) % Baso % (Auto) 0.2 (0.0-1.0) % Sodium (136-145) mmol/L Potassium (3.5-5.1) mmol/L Chloride (98-107) mmol/L Carbon Dioxide (21-32) mmol/L Anion Gap (7-13) mEq/L BUN (7-18) mg/dL Creatinine (0.55-1.02) mg/dL Est Cr Clr Drug Dosing mL/min Estimated GFR (MDRD) Glucose (74-99) mg/dL POC Glucose 323 H 233 H (70-105) mg/dl Calcium (8.5-10.1) mg/dL 10/28/20 10/28/20 10/28/20 Range/Units 06:02 07:58 11:41 WBC (5.0-10.0) 10^3/uL RBC (4.2-5.4) 10^6/uL Hgb (12.0-16.0) g/dL Hct (37.0-47.0) % MCV (80-100) fL MCH (27.0-34.0) pg MCHC (33.0-35.0) g/dL Plt Count (150-450) 10^3/uL Neut % (Auto) (42.2-75.2) % Lymph % (Auto) (20.5-50.1) % [place] % (Auto) (2-8) % Eos % (Auto) (1.0-3.0) % Baso % (Auto) (0.0-1.0) % Sodium 139 (136-145) mmol/L Potassium 4.4 (3.5-5.1) mmol/L Chloride 105 (98-107) mmol/L Carbon Dioxide 22 (21-32) mmol/L Anion Gap 16.4 H (7-13) mEq/L BUN 33 H (7-18) mg/dL Creatinine 1.77 H (0.55-1.02) mg/dL Est Cr Clr Drug Dosing 28.48 mL/min Estimated GFR (MDRD) 29 Glucose 145 H (74-99) mg/dL POC Glucose 162 H 206 H (70-105) mg/dl Calcium 7.9 L (8.5-10.1) mg/dL Garrick Results Last 24 Hours: Microbiology 01/15/21 08:50 Shiga Toxin I & II - Final Stool / Feces 10/27/20 08:50 Clostridioides difficile (PCR) - Final Stool / Feces 10/26/20 16:28 Urine Culture - Final Urine, Voided Klebsiella Pneumoniae 10/27/20 08:50 Stool Culture - Preliminary Stool / Feces NORMAL ENTERIC LATRICE 1 DAY Med Orders - Current: Current Medications Acetaminophen (Tylenol) 650 mg PO Q4H PRN PRN Reason: Pain (Mild 1-3)/fever Bismuth Subsalicylate (Pepto Bismol) 262 mg PO TID [facility] Last Admin: 10/28/20 09:14 Dose: 262 mg Documented by: Bumetanide (Bumex) 0.5 mg PO DAILY [facility] Last Admin: 10/28/20 09:15 Dose: 0.5 mg Documented by: Dextrose/Water (Dextrose 50% In Water) 50 ml IV ASDIRECTED PRN PRN Reason: Hypoglycemia Glipizide (Glucotrol) 10 mg PO BID [facility] Last Admin: 10/28/20 09:16 Dose: Not Given Documented by: Glucagon (Glucagen) 1 mg IM ASDIRECTED PRN PRN Reason: Hypoglycemia Heparin Sodium (Porcine) (Heparin Sodium) 5,000 units SUBCUT Q8HR [facility] Last Admin: 10/28/20 06:13 Dose: Not Given Documented by: Ciprofloxacin/Dextrose 400 mg/ (Premix) 200 mls @ 200 mls/hr IV DAILY [facility] Last Admin: 10/28/20 09:21 Dose: 200 mls/hr Documented by: Insulin Glargine (Lantus) 12 unit SUBCUT BEDTIME [facility] Last Admin: 10/27/20 21:32 Dose: 12 units Documented by: Insulin Human Lispro (Humalog) 0 unit SUBCUT WITHMEALSANDBED [facility]; Protocol Last Admin: 10/28/20 12:46 Dose: 2 unit Documented by: Levothyroxine Sodium (Levothyroxine) 112 mcg PO ACBRK [facility] Last Admin: 10/28/20 06:12 Dose: 112 mcg Documented by: Loperamide HCl (Imodium) 2 mg PO TID [facility] Magnesium Oxide (Magnesium Oxide) 1,000 mg PO BIDMEALS [facility] Last Admin: 10/28/20 09:14 Dose: 1,000 mg Documented by: Multivitamins (Thera) 1 each PO DAILY [facility] Last Admin: 10/28/20 09:15 Dose: 1 each Documented by: Non-Formulary Medication 1 Each ( Bimatoprost [Lumigan 0.01% Ophth Soln] 2 Drop) 1 drop EYEBOTH BEDTIME [facility] Non-Formulary Medication (Brimonidine/Timolol [Combigan 0.2%/0.5% Ophth Soln]) 1 drop EYERT Q12HR [facility] Dapsone [Dapsone] 25 (Mg Tab) 0 mg PO [id number] [facility] Last Admin: 10/27/20 21:00 Dose: 50 mg Documented by: Tacrolimus 1 Mg Cap (*Own Med*) 0 each PO BID [facility] Last Admin: 10/28/20 09:17 Dose: 1 each Documented by: Tacrolimus 0.5 Mg (Cap *Own Med*) 0 each PO BID [facility] Last Admin: 10/28/20 09:18 Dose: 1 each Documented by: Omeprazole (Omeprazole) 20 mg PO BIDAC [facility] Last Admin: 10/28/20 06:12 Dose: 20 mg Documented by: Ondansetron HCl (Zofran Odt) 4 mg PO Q4H PRN PRN Reason: nausea, able to take PO Last Admin: 10/26/20 21:53 Dose: 4 mg Documented by: Mycophenolate 500 Mg (Tab *Own Med*) 0 each PO BID [facility] Last Admin: 10/28/20 09:17 Dose: 3 each Documented by: Prednisone (Prednisone) 2.5 mg PO BEDTIME [facility] Last Admin: 10/27/20 21:09 Dose: 2.5 mg Documented by: Prednisone (Prednisone) 5 mg PO QAM [facility] Last Admin: 10/28/20 09:18 Dose: 5 mg Documented by: Simvastatin (Zocor) 40 mg PO BEDTIME [facility] Last Admin: 10/27/20 21:14 Dose: Not Given Documented by: Temazepam (Restoril) 15 mg PO BEDTIME PRN PRN Reason: Sleep Discontinued Medications Bismuth Subsalicylate (Pepto Bismol) 30 mg PO Q4H PRN PRN Reason: diarhea Bismuth Subsalicylate (Pepto Bismol) 30 mg PO TID [facility] Last Admin: 10/27/20 16:01 Dose: Not Given Documented by: Gabapentin (Neurontin) 300 mg PO TID [facility] Last Admin: 10/27/20 10:23 Dose: Not Given Documented by: Magnesium Sulfate (Magnesium Sulfate In Water Premix) 4 gm in 100 mls @ 50 mls/hr IV ONETIME ONE Stop: 10/26/20 15:48 Last Admin: 10/26/20 22:01 Dose: Not Given Documented by: Sodium Chloride (Normal Saline) 1,000 mls @ 125 mls/hr IV ASDIRECTED ONE Stop: 10/26/20 21:50 Last Admin: 10/26/20 14:32 Dose: 125 mls/hr Documented by: Magnesium Sulfate (Magnesium Sulfate In Water Premix) 2 gm in 50 mls @ 50 m ls/hr IV Q1H [facility] Stop: 10/26/20 16:29 Last Admin: 10/26/20 15:37 Dose: 50 mls/hr Documented by: Levothyroxine Sodium (Synthroid) 88 mcg PO ACBRK [facility] Last Admin: 10/27/20 08:49 Dose: 88 mcg Documented by: Loperamide HCl (Imodium) 2 mg PO Q6H PRN PRN Reason: Diarrhea Magnesium Oxide (Magnesium Oxide) 1,200 mg PO BIDMEALS [facility] Last Admin: 10/27/20 17:54 Dose: 1,250 mg Documented by: Mycophenolate Mofetil (Cellcept) 1,500 mg PO BID [facility] Last Admin: 10/27/20 10:23 Dose: 1,500 mg Documented by: Non-Formulary Medication (Magnesium Oxide [Magnesium Oxide]) 400 mg PO BID [facility] Last Admin: 10/27/20 12:32 Dose: Not Given Documented by: Non-Formulary Medication (Tacrolimus [Prograf]) 2 mg PO BEDTIME [facility] Non-Formulary Medication (Tacrolimus) 1.5 mg PO QAM [facility] Last Admin: 10/27/20 12:32 Dose: Not Given Documented by: Ondansetron HCl (Zofran) 4 mg IVPUSH ONETIME ONE Stop: 10/26/20 13:53 Last Admin: 10/26/20 21:53 Dose: Not Given Documented by: Prednisone (Prednisone) 2.5 mg PO BEDTIME [facility] Last Admin: 10/26/20 22:00 Dose: Not Given Documented by: Prednisone (Prednisone) 5 mg PO QAM [facility] Last Admin: 10/27/20 10:23 Dose: 5 mg Documented by: - Exam General: Alert, Oriented Neck: Supple Lungs: Clear to Auscultation, Normal Respiratory Effort Cardiovascular: Regular Rate, Regular Rhythm GI/Abdominal Exam: Normal Bowel Sounds, Soft, Non-Tender, Other (obese) Extremities: No: Pedal Edema Skin: Warm, Dry Neurological: No New Focal Deficit Psy/Mental Status: Alert, Normal Affect, Normal Mood Sepsis Event Note - Evaluation Sepsis Screening Result: No Definite Risk - Focused Exam Vital Signs: Vital Signs Temp Pulse Resp BP Pulse Ox 10/28/20 12:00 98.1 F 81 18 121/57 L 94 L 10/28/20 08:00 97.9 F 90 20 128/56 L 94 L - Problem List & Annotations (1) COVID-19 SNOMED Code(s): 314979132 Code(s): U07.1 - COVID-19 Status: Acute Current Visit: Yes (2) Diarrhea SNOMED Code(s): 03603181 Code(s): R19.7 - DIARRHEA, UNSPECIFIED Status: Acute Current Visit: Yes Qualifiers: Diarrhea type: unspecified type Qualified Code(s): R19.7 - Diarrhea, unspecified (3) MARYELLEN (acute kidney injury) SNOMED Code(s): 32766162, 10397961 Code(s): N17.9 - ACUTE KIDNEY FAILURE, UNSPECIFIED Status: Acute Current Visit: Yes (4) Hypomagnesemia SNOMED Code(s): 873012036 Code(s): E83.42 - HYPOMAGNESEMIA Status: Acute Current Visit: Yes (5) Diabetes SNOMED Code(s): 29942507 Code(s): E11.9 - TYPE 2 DIABETES MELLITUS WITHOUT COMPLICATIONS Status: Acute Current Visit: Yes (6) Chronic pain SNOMED Code(s): 89273009 Code(s): G89.29 - OTHER CHRONIC PAIN Status: Acute Current Visit: Yes (7) HTN (hypertension) SNOMED Code(s): 87276460 Code(s): I10 - ESSENTIAL (PRIMARY) HYPERTENSION Status: Acute Current Visit: Yes - Problem List Review Problem List Initiated/Reviewed/Updated: Yes - My Orders Last 24 Hours: My Active Orders 10/27/20 15:00 Ciprofloxacin in D5W [Cipro in D5W 400 MG/200 ML] 400 mg Premix Bag 1 bag IV DAILY 10/27/20 16:00 Bismuth Subsalicylate [Pepto Bismol] 262 mg PO TID 10/27/20 21:00 Dapsone [Dapsone] 0 mg PO [id number] Insulin Glarg,Human.Rec.Analog [LantUS] 12 unit SUBCUT BEDTIME Patient's Own Medication [Ptom] 0 each PO BID Simvastatin [Zocor] 40 mg PO BEDTIME glipiZIDE [Glucotrol] 10 mg PO BID predniSONE 2.5 mg PO BEDTIME 10/28/20 06:00 Levothyroxine 112 mcg PO ACBRK 10/28/20 08:00 Magnesium Oxide 1,000 mg PO BIDMEALS 10/28/20 09:00 Bumetanide [Bumex] 0.5 mg PO DAILY predniSONE 5 mg PO QAM 10/28/20 14:00 Loperamide [Imodium] 2 mg PO TID - Plan Plan:: 70-year-old with a history of lung transplant, diabetes, hypertension, hypothyroidism. The patient developed diarrhea and tested positive for Covid 19 infection on 13 October Since then she has had no pulmonary symptoms but has continued diarrhea. She has been trying to take up to 4 times a day Imodium but no help. Diarrhea happens after eating. Associated with episode a couple abdominal pain. There is no black or bloody discoloration of the stool but it is usually watery or very soft. Covid 19 infection Resulting in diarrhea No pulmonary symptoms continues to have loose bowel movements Will use up to be small and Imodium scheduled negative c diff, stool cx. Acute renal failure Baseline creatinine 1.2 on 16 October in the [facility] Likely secondary dehydration some improvement Will continue to hydrate the patient Follow electrolytes and replace them as needed Hold Lasix Hold losartan for HTN Hypomagnesemia Was replaced Diabetes Well give Lantus at night follow blood sugars, supplemental insulin as needed Status post lung transplant Continue Cellcept, prograf Chronic pain Decreased Neurontin with the renal failure Hypothyroidism Treat with Synthroid urinary tract infection with Klebsiella Sensitive to ceftriaxone and ciprofloxacin Continue IV ciprofloxacin dVT prophyaxis with sq heparin
[2020-10-28] MEDS: Loperamide 2 MG Cap PO SCH ×2 (14:24→20:21)
[2020-10-28] MEDS: Simvastatin 40 MG Tab PO SCH (20:24)
[2020-10-28] MEDS: Insulin Glarg,Human.Rec.Analog 100 Unit/ML SUBCUT SCH (20:39)
[2020-10-28] MEDS: Non-Formulary Medication 1 Each (Magnesium Oxide [Magnesium Oxide] 400 MG) PO SCH (21:36)
[2020-10-29] MEDS: Ondansetron 4 MG Tab.DIS PO PRN (03:50)
[2020-10-29] MEDS: Heparin Sodium 5,000 Units/ML Vial SUBCUT SCH (05:19)
[2020-10-29] MEDS: Omeprazole 20 MG Cap.CR PO SCH (06:34)
[2020-10-29] MEDS: Levothyroxine 112 MCG Tab PO SCH (06:34)
[2020-10-29] MEDS: Loperamide 2 MG Cap PO SCH (08:38)
[2020-10-29] MEDS: Bismuth Subsalicylate 262 MG Tab.Chew PO SCH (08:38)
[2020-10-29] MEDS: MYCOPHENOLATE 500 MG PO SCH (08:40)
[2020-10-29] MEDS: PREDNISONE 5 MG PO SCH (08:41)
[2020-10-29] MEDS: Ciprofloxacin in D5W 400 MG in Premix Bag 1 BAG IV SCH ×2 (08:42)
[2020-10-29] MEDS: Insulin Lispro 100 Units/ML 3 ML Vial SUBCUT SCH (08:42)
[2020-10-29] MEDS: Multivitamins,Therapeutic Tab PO SCH (08:42)
[2020-10-29] MEDS: Bumetanide 1 MG Tab PO SCH (08:42)
[2020-10-29] MEDS: glipiZIDE 5 MG Tab PO SCH (08:42)
[2020-10-29] MEDS ORDERED: Hydrocortisone Sodium Succinate 100 MG/2 ML SDV IVPUSH ONE (10:48)
[2020-10-29] MEDS ORDERED: Atropine/Diphenoxylate 0.025-2.5 MG Tab PO SCH (11:00)
--- NOTE | 2020-10-29 11:12 | PCM.DCSUM1 ---
Discharge Summary - Hospital Course Free Text/Narrative:: 70-year-old with a history of lung transplant, diabetes, hypertension, hypothyroidism. The patient developed diarrhea and tested positive for Covid 19 infection on 13 October Since then she has had no pulmonary symptoms but has continued diarrhea. She has been trying to take up to 4 times a day Imodium but no help. Diarrhea happens after eating. Associated with episode a couple abdominal pain. There is no black or bloody discoloration of the stool but it is usually watery or very soft. Covid 19 infection since Oct 13 Resulting in diarrhea No pulmonary symptoms continues to have loose bowel movements, nausea, vomiting despite tid scheduled pepto-bismol and Imodium will give hydrocortisone 100 mg stress dose for possible adrenal insufficiency transfer to [facility] for further eval negative c diff, stool cx. Acute renal failure cr. 1.8 Baseline creatinine 1.2 on 16 October in the [facility] Likely secondary dehydration some improvement Will continue to hydrate the patient Follow electrolytes and replace them as needed Hold Lasix Hold losartan for HTN Hypomagnesemia Was replaced Diabetes Well give Lantus at night follow blood sugars, supplemental insulin as needed Status post lung transplant Continue Cellcept, prograf dapsone TIW for prophylaxis Chronic pain Decrease Neurontin with the renal failure Hypothyroidism Treat with Synthroid urinary tract infection with Klebsiella Sensitive to ceftriaxone and ciprofloxacin has been on ciprofloxacin since 10/27 dVT prophyaxis with sq heparin Diagnosis: Stroke: No - Discharge Data Discharge Date: 10/29/20 Discharge Disposition: DC/Tfer to Acute Hospital 02 Condition: Good - Referral to Home Health Primary Care Physician: PCP None - Discharge Diagnosis/Problem(s) (1) COVID-19 SNOMED Code(s): 023747355 ICD Code: U07.1 - COVID-19 Status: Acute Current Visit: Yes (2) Diarrhea SNOMED Code(s): 51793922 ICD Code: R19.7 - DIARRHEA, UNSPECIFIED Status: Acute Current Visit: Yes Qualifiers: Diarrhea type: unspecified type Qualified Code(s): R19.7 - Diarrhea, unspecified (3) MARYELLEN (acute kidney injury) SNOMED Code(s): 42283674, 49328432 ICD Code: N17.9 - ACUTE KIDNEY FAILURE, UNSPECIFIED Status: Acute Current Visit: Yes (4) Hypomagnesemia SNOMED Code(s): 329238807 ICD Code: E83.42 - HYPOMAGNESEMIA Status: Acute Current Visit: Yes (5) Diabetes SNOMED Code(s): 46141674 ICD Code: E11.9 - TYPE 2 DIABETES MELLITUS WITHOUT COMPLICATIONS Status: Acute Current Visit: Yes (6) Chronic pain SNOMED Code(s): 06525500 ICD Code: G89.29 - OTHER CHRONIC PAIN Status: Acute Current Visit: Yes (7) HTN (hypertension) SNOMED Code(s): 58994298 ICD Code: I10 - ESSENTIAL (PRIMARY) HYPERTENSION Status: Acute Current Visit: Yes - Discharge Plan *PRESCRIPTION DRUG MONITORING PROGRAM REVIEWED*: Not Applicable *COPY OF PRESCRIPTION DRUG MONITORING REPORT IN PATIENT ASHISH: Not Applicable Home Medications: Home Meds Brimonidine/Timolol [Combigan 0.2%/0.5% Ophth Soln] 1 drop EYEBOTH BID 04/24/14 [History] Calcium Carbonate/Vitamin D3 [Calcium 600-Vit D3 400 Tablet] 1 tab PO BID 06/28/17 [History] Cholecalciferol (Vitamin D3) [Vitamin D3] 1,000 unit PO DAILY 06/28/17 [History] Dapsone 50 mg PO .MONWEDFRI 06/28/17 [History] Lutein 6 mg PO DAILY 06/28/17 [History] Magnesium Oxide 1,200 mg PO BID 06/28/17 [History] Multivitamin [Multi-Day Vitamins] 1 tab PO DAILY 06/28/17 [History] Omeprazole 20 mg PO BID 06/28/17 [History] Tacrolimus 1 mg PO BID 06/28/17 [History] predniSONE [Prednisone] 5 mg PO QAM 06/28/17 [History] Acetaminophen 975 mg PO TID 12/07/17 [History] predniSONE [Prednisone] 2.5 mg PO QPM 12/07/17 [History] Lidocaine 5% [Lidoderm 5%] 1 patch TRDERM DAILY PRN 10/26/20 [History] Loperamide [Imodium] 2 mg PO Q6H PRN 10/26/20 [History] Bimatoprost [Lumigan 0.01% Ophth Soln] 1 drop EYEBOTH BEDTIME 10/27/20 [History] Bumetanide 0.5 mg PO DAILY 10/27/20 [History] Diclofenac Sodium [Voltaren 1% Gel] 1 gram TOP BID PRN 10/27/20 [History] Insulin Glargine,Hum.Rec.Anlog [Basaglar Kwikpen U-100] 18 units SQ BEDTIME 10/27/20 [History] Levothyroxine 112 mcg PO ACBREAKFAST 10/27/20 [History] Losartan [Cozaar] 100 mg PO DAILY 10/27/20 [History] Semaglutide [Ozempic] 1 mg SQ .WEEKLY 10/27/20 [History] Simvastatin 40 mg PO BEDTIME 10/27/20 [History] Tacrolimus 0.5 mg PO BID 10/27/20 [History] glipiZIDE [Glucotrol] 10 mg PO BID 10/27/20 [History] mycophenolate mofetiL [Mycophenolate Mofetil] 1,500 mg PO BID 10/27/20 [History] Atropine/Diphenoxylate [Diphenoxylate-Atropine] 1 tab PO BID tablet 10/29/20 [Rx] Bimatoprost [Lumigan 0.03% Ophth Soln] 1 drop EYEBOTH BEDTIME 10/29/20 [Rx] Bismuth Subsalicylate [Pepto Bismol] 262 mg PO TID tab.chew 10/29/20 [Rx] Ciprofloxacin in D5W [Ciprofloxacin-D5W] 400 mg IV DAILY bag 10/29/20 [Rx] Heparin Sodium 5,000 units SUBCUT Q8HR vial 10/29/20 [Rx] Insulin Glarg,Human.Rec.Analog [Lantus] 12 unit SUBCUT BEDTIME ml 10/29/20 [Rx] Insulin Lispro [HumaLOG] 0 unit SUBCUT WITHMEALSANDBED vial 10/29/20 [Rx] Levothyroxine 112 mcg PO ACBRK tablet 10/29/20 [Rx] Loperamide [Imodium] 2 mg PO TID cap 10/29/20 [Rx] Magnesium Oxide 1,000 mg PO BIDMEALS tablet 10/29/20 [Rx] Ondansetron [Zofran ODT] 4 mg PO Q4H PRN tab.dis 10/29/20 [Rx] Forms: ED Department Discharge - Discharge Summary/Plan Comment DC Time >30 min.: Yes (called [facility] - [facility], arrange transfer) - General Info Date of Service: 10/29/20 Admission Dx/Problem (Free Text: Admission Diagnosis/Problem Admission Diagnosis/Problem Diarrhea Functional Status: Reports: Ambulating. Denies: Tolerating Diet - Review of Systems General: Reports: Weakness, Fatigue Pulmonary: Denies: Shortness of Breath Cardiovascular: Denies: Chest Pain Gastrointestinal: Reports: Diarrhea, Nausea, Vomiting. Denies: Abdominal Pain Skin: Denies: Rash Neurological: Denies: Confusion - Patient Data Vitals - Most Recent: Last Vital Signs Temp 98.1 F 10/29/20 04:00 Pulse 105 H 10/29/20 04:00 Resp 20 10/29/20 04:00 BP 110/70 10/29/20 04:00 Pulse Ox 100 10/29/20 04:00 Weight - Most Recent: 215 lb I&O - Last 24 hours: Intake & Output 10/28/20 10/29/20 10/29/20 22:59 06:59 14:59 Intake Total 100 500 100 Balance 100 500 100 Lab Results - Last 24 hrs: Laboratory Results - last 24 hr 10/28/20 10/28/20 10/28/20 Range/Units 11:41 16:52 20:37 POC Glucose 206 H 258 H 208 H (70-105) mg/dl 10/29/20 10/29/20 Range/Units 03:51 07:53 POC Glucose 184 H 169 H (70-105) mg/dl DEVORA Results - Last 24 hrs: Microbiology 10/27/20 08:50 Stool Culture - Preliminary Stool / Feces NORMAL ENTERIC LATRICE. NO SALMONELLA, SHIGELLA, CAMPYLOBACTER OR E.COLI O157 ISOLATED. 10/27/20 08:50 Shiga Toxin I & II - Final Stool / Feces 10/27/20 08:50 Clostridioides difficile (PCR) - Final Stool / Feces 10/26/20 16:28 Urine Culture - Final Urine, Voided Klebsiella Pneumoniae Med Orders - Current: Current Medications Acetaminophen (Tylenol) 650 mg PO Q4H PRN PRN Reason: Pain (Mild 1-3)/fever Bismuth Subsalicylate (Pepto Bismol) 262 mg PO TID [facility] Last Admin: 10/29/20 08:38 Dose: 262 mg Documented by: Bumetanide (Bumex) 0.5 mg PO DAILY [facility] Last Admin: 10/29/20 08:42 Dose: Not Given Documented by: Dextrose/Water (Dextrose 50% In Water) 50 ml IV ASDIRECTED PRN PRN Reason: Hypoglycemia Diphenoxylate HCl/Atropine (Lomotil 0.025-2.5 Mg) 1 tab PO BID [facility] Last Admin: 10/29/20 11:02 Dose: 1 tab Documented by: Glipizide (Glucotrol) 10 mg PO BID [facility] Last Admin: 10/29/20 08:42 Dose: Not Given Documented by: Glucagon (Glucagen) 1 mg IM ASDIRECTED PRN PRN Reason: Hypoglycemia Heparin Sodium (Porcine) (Heparin Sodium) 5,000 units SUBCUT Q8HR [facility] Last Admin: 10/29/20 05:19 Dose: Not Given Documented by: Ciprofloxacin/Dextrose 400 mg/ (Premix) 200 mls @ 200 mls/hr IV DAILY [facility] Last Admin: 10/29/20 08:42 Dose: 200 mls/hr Documented by: Insulin Glargine (Lantus) 12 unit SUBCUT BEDTIME [facility] Last Admin: 10/28/20 20:39 Dose: 12 units Documented by: Insulin Human Lispro (Humalog) 0 unit SUBCUT WITHMEALSANDBED [facility]; Protocol Last Admin: 10/29/20 08:42 Dose: Not Given Documented by: Levothyroxine Sodium (Levothyroxine) 112 mcg PO ACBRK [facility] Last Admin: 10/29/20 06:34 Dose: 112 mcg Documented by: Loperamide HCl (Imodium) 2 mg PO TID [facility] Last Admin: 10/29/20 08:38 Dose: 2 mg Documented by: Magnesium Oxide (Magnesium Oxide) 1,000 mg PO BIDMEALS [facility] Last Admin: 10/29/20 08:42 Dose: Not Given Documented by: Multivitamins (Thera) 1 each PO DAILY [facility] Last Admin: 10/29/20 08:42 Dose: Not Given Documented by: Non-Formulary Medication 1 Each ( Bimatoprost [Lumigan 0.01% Ophth Soln] 2 Drop) 1 drop EYEBOTH BEDTIME [facility] Non-Formulary Medication (Brimonidine/Timolol [Combigan 0.2%/0.5% Ophth Soln]) 1 drop EYERT Q12HR [facility] Dapsone [Dapsone] 25 (Mg Tab) 0 mg PO [id number] [facility] Last Admin: 10/27/20 21:00 Dose: 50 mg Documented by: Tacrolimus 1 Mg Cap (*Own Med*) 0 each PO BID [facility] Last Admin: 10/29/20 08:40 Dose: 1 each Documented by: Tacrolimus 0.5 Mg (Cap *Own Med*) 0 each PO BID [facility] Last Admin: 10/29/20 08:39 Dose: 1 each Documented by: Omeprazole (Omeprazole) 20 mg PO BIDAC [facility] Last Admin: 10/29/20 06:34 Dose: 20 mg Documented by: Ondansetron HCl (Zofran Odt) 4 mg PO Q4H PRN PRN Reason: nausea, able to take PO Last Admin: 10/29/20 03:50 Dose: 4 mg Documented by: Mycophenolate 500 Mg (Tab *Own Med*) 0 each PO BID [facility] Last Admin: 10/29/20 08:40 Dose: 1 each Documented by: Prednisone (Prednisone) 2.5 mg PO BEDTIME [facility] Last Admin: 10/28/20 20:38 Dose: 2.5 mg Documented by: Prednisone (Prednisone) 5 mg PO QAM [facility] Last Admin: 10/29/20 08:41 Dose: 5 mg Documented by: Simvastatin (Zocor) 40 mg PO BEDTIME [facility] Last Admin: 10/28/20 20:24 Dose: 40 mg Documented by: Temazepam (Restoril) 15 mg PO BEDTIME PRN PRN Reason: Sleep Discontinued Medications Bismuth Subsalicylate (Pepto Bismol) 30 mg PO Q4H PRN PRN Reason: diarhea Bismuth Subsalicylate (Pepto Bismol) 30 mg PO TID [facility] Last Admin: 10/27/20 16:01 Dose: Not Given Documented by: Gabapentin (Neurontin) 300 mg PO TID [facility] Last Admin: 10/27/20 10:23 Dose: Not Given Documented by: Hydrocortisone Sodium Succinate (Solu-Cortef) 100 mg IVPUSH ONETIME ONE Stop: 10/29/20 10:49 Magnesium Sulfate (Magnesium Sulfate In Water Premix) 4 gm in 100 mls @ 50 mls/hr IV ONETIME ONE Stop: 10/26/20 15:48 Last Admin: 10/26/20 22:01 Dose: Not Given Documented by: Sodium Chloride (Normal Saline) 1,000 mls @ 125 mls/hr IV ASDIRECTED ONE Stop: 10/26/20 21:50 Last Admin: 10/26/20 14:32 Dose: 125 mls/hr Documented by: Magnesium Sulfate (Magnesium Sulfate In Water Premix) 2 gm in 50 mls @ 50 mls/hr IV Q1H [facility] Stop: 10/26/20 16:29 Last Admin: 10/26/20 15:37 Dose: 50 mls/hr Documented by: Levothyroxine Sodium (Synthroid) 88 mcg PO ACBRK [facility] Last Admin: 10/27/20 08:49 Dose: 88 mcg Documented by: Loperamide HCl (Imodium) 2 mg PO Q6H PRN PRN Reason: Diarrhea Magnesium Oxide (Magnesium Oxide) 1,200 mg PO BIDMEALS [facility] Last Admin: 10/27/20 17:54 Dose: 1,250 mg Documented by: Mycophenolate Mofetil (Cellcept) 1,500 mg PO BID [facility] Last Admin: 10/27/20 10:23 Dose: 1,500 mg Documented by: Non-Formulary Medication (Magnesium Oxide [Magnesium Oxide]) 400 mg PO BID [facility] Last Admin: 10/28/20 21:36 Dose: Not Given Documented by: Non-Formulary Medication (Tacrolimus [Prograf]) 2 mg PO BEDTIME [facility] Last Admin: 10/28/20 21:36 Dose: Not Given Documented by: Non-Formulary Medication (Tacrolimus) 1.5 mg PO QAM [facility] Last Admin: 10/27/20 12:32 Dose: Not Given Documented by: Ondansetron HCl (Zofran) 4 mg IVPUSH ONETIME ONE Stop: 10/26/20 13:53 Last Admin: 10/26/20 21:53 Dose: Not Given Documented by: Prednisone (Prednisone) 2.5 mg PO BEDTIME [facility] Last Admin: 10/26/20 22:00 Dose: Not Given Documented by: Prednisone (Prednisone) 5 mg PO QAM [facility] Last Admin: 10/27/20 10:23 Dose: 5 mg Documented by: - Exam Quality Assessment: Denies: Supplemental Oxygen General: Reports: Alert, Oriented Neck: Reports: Supple Lungs: Reports: Clear to Auscultation, Normal Respiratory Effort Cardiovascular: Reports: Regular Rate, Regular Rhythm GI/Abdominal Exam: Normal Bowel Sounds, Soft, Non-Tender, Other (obese) Skin: Reports: Warm, Dry Neurological: Reports: No New Focal Deficit Psy/Mental Status: Reports: Alert, Normal Affect, Normal Mood
[2020-10-29 14:11] VITALS: BP 107/61; PULSE 108
== END 2020-10-29 11:45 ==
LOC: DL.ED 12:48 → DL.MS 18:51
PROVIDERS: ADMIT Internal Medicine; ATTEND Internal Medicine
DX: U07.1 COVID-19 (principal); R19.7 Diarrhea, unspecified; E11.9 Type 2 diabetes mellitus without complications; I10 Essential (primary) hypertension; E03.9 Hypothyroidism, unspecified; J44.9 Chronic obstructive pulmonary disease, unspecified; G47.30 Sleep apnea, unspecified; N17.9 Acute kidney failure, unspecified; E83.42 Hypomagnesemia; G89.29 Other chronic pain; N39.0 Urinary tract infection, site not specified; B96.1 Klebsiella pneumoniae [K. pneumoniae] as the cause of diseases classified elsewhere; Z88.1 Allergy status to other antibiotic agents; Z88.2 Allergy status to sulfonamides; Z91.041 Radiographic dye allergy status; Z79.899 Other long term (current) drug therapy; Z79.890 Hormone replacement therapy; Z79.4 Long term (current) use of insulin; E78.00 Pure hypercholesterolemia, unspecified; Z94.2 Lung transplant status
CPT/HCPCS: 36415; 80048; 80053; 81001; 82962; 83605; 83735; 83880; 84100; 85025; 85379; 87045; 87046; 87086; 87088; 87186; 87493; 87899; 96365; 96366; 96367; 96372; 96376; 99217; 99218; 99225; 99284; A9270; G0378; J0744; J1644; J1815; J3475; J7030; J7512

== ENCOUNTER 2020-11-06 12:20 | Inpatient (IN) | payer MEDICARE, BC ==
--- NOTE | 2020-11-06 14:07 | EDM.PDOC ---
ED HPI GENERAL MEDICAL PROBLEM - General Chief Complaint: General Stated Complaint: SORES ON STOMACHE Time Seen by Provider: 11/06/20 13:50 Source of Information: Reports: Patient History Limitations: Reports: No Limitations - History of Present Illness INITIAL COMMENTS - FREE TEXT/NARRATIVE: This 70 yo female patient reports to the ED ED with a rash under her breasts and on her upper abdomen. The patient reports her symptoms have been getting worse since she was released from the [facility] last . The patient's reports he has been applying the nystatin cream 2 times per day, but the symptoms have been getting worse. The patient attempted to contact her primary care facility, but her provider was not available today. Duration: Week(s):, Constant, Getting Worse Location: Reports: Chest, Abdomen Quality: Reports: Ache, Burning Severity: Moderate Improves with: Reports: None Worsens with: Reports: None Context: Reports: Other Associated Symptoms: Reports: No Other Symptoms Breast Pain Score (Numeric/FACES): 6 - Related Data Allergies Allergy/AdvReac Type Severity Reaction Status Date / Time ciprofloxacin Allergy Severe Difficulty Verified 11/06/20 13:48 Breathing azithromycin [From Zithromax] Allergy Difficulty Verified 11/06/20 13:48 Breathing Iodinated Contrast Media Allergy Hives Verified 11/06/20 13:48 [Iodinated Contrast Media - IV Dye] iodine Allergy Hives Verified 11/06/20 13:48 Sulfa (Sulfonamide Allergy Cannot Verified 11/06/20 13:48 Antibiotics) Remember Home Meds: Home Meds Brimonidine/Timolol [Combigan 0.2%/0.5% Ophth Soln] 1 drop EYEBOTH BID 04/24/14 [History] Calcium Carbonate/Vitamin D3 [Calcium 600-Vit D3 400 Tablet] 1 tab PO BID 06/28/17 [History] Cholecalciferol (Vitamin D3) [Vitamin D3] 1,000 unit PO DAILY 06/28/17 [History] Dapsone 50 mg PO .MONWEDFRI 06/28/17 [History] Lutein 6 mg PO DAILY 06/28/17 [History] Magnesium Oxide 1,200 mg PO BID 06/28/17 [History] Multivitamin [Multi-Day Vitamins] 1 tab PO DAILY 06/28/17 [History] Omeprazole 20 mg PO BID 06/28/17 [History] Tacrolimus 1 mg PO BID 06/28/17 [History] predniSONE [Prednisone] 5 mg PO QAM 06/28/17 [History] Acetaminophen 975 mg PO TID 12/07/17 [History] predniSONE [Prednisone] 2.5 mg PO QPM 12/07/17 [History] Lidocaine 5% [Lidoderm 5%] 1 patch TRDERM DAILY PRN 10/26/20 [History] Loperamide [Imodium] 2 mg PO Q6H PRN 10/26/20 [History] Bimatoprost [Lumigan 0.01% Ophth Soln] 1 drop EYEBOTH BEDTIME 10/27/20 [History] Bumetanide 0.5 mg PO DAILY 10/27/20 [History] Diclofenac Sodium [Voltaren 1% Gel] 1 gram TOP BID PRN 10/27/20 [History] Insulin Glargine,Hum.Rec.Anlog [Basaglar Kwikpen U-100] 18 units SQ BEDTIME 10/27/20 [History] Levothyroxine 112 mcg PO ACBREAKFAST 10/27/20 [History] Losartan [Cozaar] 100 mg PO DAILY 10/27/20 [History] Semaglutide [Ozempic] 1 mg SQ .WEEKLY 10/27/20 [History] Simvastatin 40 mg PO BEDTIME 10/27/20 [History] Tacrolimus 0.5 mg PO BID 10/27/20 [History] glipiZIDE [Glucotrol] 10 mg PO BID 10/27/20 [History] mycophenolate mofetiL [Mycophenolate Mofetil] 1,500 mg PO BID 10/27/20 [History] Atropine/Diphenoxylate [Diphenoxylate-Atropine] 1 tab PO BID tablet 10/29/20 [Rx] Bimatoprost [Lumigan 0.03% Ophth Soln] 1 drop EYEBOTH BEDTIME 10/29/20 [Rx] Bismuth Subsalicylate [Pepto Bismol] 262 mg PO TID tab.chew 10/29/20 [Rx] Ciprofloxacin in D5W [Ciprofloxacin-D5W] 400 mg IV DAILY bag 10/29/20 [Rx] Heparin Sodium 5,000 units SUBCUT Q8HR vial 10/29/20 [Rx] Insulin Glarg,Human.Rec.Analog [Lantus] 12 unit SUBCUT BEDTIME ml 10/29/20 [Rx] Insulin Lispro [HumaLOG] 0 unit SUBCUT WITHMEALSANDBED vial 10/29/20 [Rx] Levothyroxine 112 mcg PO ACBRK tablet 10/29/20 [Rx] Loperamide [Imodium] 2 mg PO TID cap 10/29/20 [Rx] Magnesium Oxide 1,000 mg PO BIDMEALS tablet 10/29/20 [Rx] Ondansetron [Zofran ODT] 4 mg PO Q4H PRN tab.dis 10/29/20 [Rx] Past Medical History HEENT History: Reports: Glaucoma, Macular Degeneration Cardiovascular History: Reports: High Cholesterol Respiratory History: Reports: COPD, Sleep Apnea, Other (See Below) Other Respiratory History: COVID 19 Gastrointestinal History: Reports: GERD Genitourinary History: Reports: None TYPE COPYIST History: Reports: Musculoskeletal History: Reports: Back Pain, Chronic Neurological History: Reports: None Psychiatric History: Reports: None Endocrine/Metabolic History: Reports: Diabetes, Type II, Hypoparathyroidism, Hypothyroidism, Vitamin D Deficiency Hematologic History: Reports: None Immunologic History: Reports: Other (See Below) Other Immunologic History: Lung transplant Oncologic (Cancer) History: Reports: None Dermatologic History: Reports: None - Infectious Disease History Infectious Disease History: Reports: Shingles, Other (See Below) Other Infectious Disease History: COVID-19 - Past Surgical History Head Surgeries/Procedures: Reports: None HEENT Surgical History: Reports: None Cardiovascular Surgical History: Reports: None Respiratory Surgical History: Reports: Other (See Below) Other Respiratory Surgeries/Procedures: left lung transplant 2014 GI Surgical History: Reports: Colonoscopy Female Surgical History: Reports: Tubal Ligation Endocrine Surgical History: Reports: None Neurological Surgical History: Reports: None Musculoskeletal Surgical History: Reports: None Oncologic Surgical History: Reports: None Dermatological Surgical History: Reports: None Social & Family History - Family History Family Medical History: No Pertinent Family History - Tobacco Use Tobacco Use Status *Q: Never Tobacco User - Caffeine Use Caffeine Use: Reports: None Caffeine Use Comment: 1-2 CUPS DAILY - Recreational Drug Use Recreational Drug Use: No - Living Situation & Occupation Living situation: Reports: Occupation: Retired ED ROS GENERAL - Review of Systems Review Of Systems: Comprehensive ROS is negative, except as noted in HPI. ED EXAM, GENERAL - Physical Exam Exam: See Below Exam Limited By: No Limitations General Appearance: Alert, WD/WN, Moderate Distress Eye Exam: Bilateral Eye: EOMI, Normal Inspection, PERRL Ears: Normal External Exam, Normal Canal, Hearing Grossly Normal, Normal TMs Nose: Normal Inspection, Normal Mucosa, No Blood Throat/Mouth: Normal Inspection, Normal Lips, Normal Teeth, Normal Gums, Normal Oropharynx, Normal Voice, No Airway Compromise Head: Atraumatic, Normocephalic Neck: Normal Inspection, Supple, Non-Tender, Full Range of Motion Respiratory/Chest: No Respiratory Distress, Lungs Clear, Normal Breath Sounds, No Accessory Muscle Use, Chest Non-Tender Cardiovascular: Normal Peripheral Pulses, Regular Rate, Rhythm, No Edema, No Gallop, No JVD, No Murmur, No Rub GI/Abdominal: Normal Bowel Sounds, Soft, Non-Tender, No Organomegaly, No Distention, No Abnormal Bruit, No Mass, Pelvis Stable (Female) Exam: Deferred Rectal (Female) Exam: Deferred Back Exam: Normal Inspection, Full Range of Motion, NT Extremities: Normal Inspection, Normal Range of Motion, Non-Tender, Normal Capillary Refill, No Pedal Edema Neurological: Alert, Oriented, CN II-XII Intact, Normal Cognition, Normal Gait, Normal Reflexes, No Motor/Sensory Deficits Psychiatric: Normal Affect, Normal Mood Skin Exam: Erythema (yeast infection under breasts with purulent drainage) Lymphatic: No Adenopathy Course - Vital Signs Last Recorded V/S: Last Vital Signs Temp 35.8 C L 11/06/20 13:43 Pulse 100 11/06/20 13:43 Resp 16 11/06/20 13:43 BP 110/56 L 11/06/20 13:43 Pulse Ox 87 L 11/06/20 13:43 - Orders/Labs/Meds Orders: Active Orders 24 hr Category Date Time Status Admission Diagnosis [ADT] Urgent ADT 11/06/20 15:29 Ordered Admission Status [Patient Status] [ADT] Routine ADT 11/06/20 15:29 Ordered Chest 2V [CR] Urgent Exams 11/06/20 15:10 Ordered B-TYPE NATRIURETIC PEPTIDE,BNP [CHEM] Stat Lab 11/06/20 15:10 Ordered CULTURE BLOOD [BC] Stat Lab 11/06/20 13:55 Ordered CULTURE BLOOD [BC] Stat Lab 11/06/20 15:32 Ordered Labs: Laboratory Tests 11/06/20 11/06/20 11/06/20 Range/Units 14:07 14:07 14:07 WBC 8.5 (5.0-10.0) 10^3/uL RBC 3.88 L (4.2-5.4) 10^6/uL Hgb 10.9 L (12.0-16.0) g/dL Hct 34.3 L (37.0-47.0) % MCV 88.4 (80-100) fL MCH 28.1 (27.0-34.0) pg MCHC 31.8 L (33.0-35.0) g/dL Plt Count 161 (150-450) 10^3/uL Neut % (Auto) 90.1 H (42.2-75.2) % Lymph % (Auto) 3.4 L (20.5-50.1) % Sequoyah % (Auto) 5.0 (2-8) % Eos % (Auto) 1.4 (1.0-3.0) % Baso % (Auto) 0.1 (0.0-1.0) % D-Dimer, Quantitative 1870 H (0-400) ng/mL Sodium 138 (136-145) mmol/L Potassium 3.7 (3.5-5.1) mmol/L Chloride 96 L (98-107) mmol/L Carbon Dioxide 32 (21-32) mmol/L Anion Gap 13.7 H (7-13) mEq/L BUN 41 H (7-18) mg/dL Creatinine 1.92 H (0.55-1.02) mg/dL Est Cr Clr Drug Dosing 26.25 mL/min Estimated GFR (MDRD) 26 BUN/Creatinine Ratio 21.4 (No establ ref range) Glucose 217 H (74-99) mg/dL Lactic Acid (0.4-2.0) mmol/L Calcium 7.3 L (8.5-10.1) mg/dL Total Bilirubin 0.7 (0.2-1.0) mg/dL AST 22 (15-37) U/L ALT 30 (14-59) U/L Alkaline Phosphatase 65 (46-116) U/L Total Protein 5.4 L (6.4-8.2) g/dL Albumin 2.1 L (3.4-5.0) g/dL Globulin 3.3 Albumin/Globulin Ratio 0.64 01/25/21 Range/Units 14:07 WBC (5.0-10.0) 10^3/uL RBC (4.2-5.4) 10^6/uL Hgb (12.0-16.0) g/dL Hct (37.0-47.0) % MCV (80-100) fL MCH (27.0-34.0) pg MCHC (33.0-35.0) g/dL Plt Count (150-450) 10^3/uL Neut % (Auto) (42.2-75.2) % Lymph % (Auto) (20.5-50.1) % Sequoyah % (Auto) (2-8) % Eos % (Auto) (1.0-3.0) % Baso % (Auto) (0.0-1.0) % D-Dimer, Quantitative (0-400) ng/mL Sodium (136-145) mmol/L Potassium (3.5-5.1) mmol/L Chloride (98-107) mmol/L Carbon Dioxide (21-32) mmol/L Anion Gap (7-13) mEq/L BUN (7-18) mg/dL Creatinine (0.55-1.02) mg/dL Est Cr Clr Drug Dosing mL/min Estimated GFR (MDRD) BUN/Creatinine Ratio (No establ ref range) Glucose (74-99) mg/dL Lactic Acid 1.0 (0.4-2.0) mmol/L Calcium (8.5-10.1) mg/dL Total Bilirubin (0.2-1.0) mg/dL AST (15-37) U/L ALT (14-59) U/L Alkaline Phosphatase (46-116) U/L Total Protein (6.4-8.2) g/dL Albumin (3.4-5.0) g/dL Globulin Albumin/Globulin Ratio Departure - Departure Time of Disposition: 15:33 Disposition: Admitted As Inpatient 68 Condition: Fair Clinical Impression: COPD exacerbation, Yeast infection of the skin - Discharge Information *PRESCRIPTION DRUG MONITORING PROGRAM REVIEWED*: Not Applicable *COPY OF PRESCRIPTION DRUG MONITORING REPORT IN PATIENT ASHISH: Not Applicable Forms: ED Department Discharge Care Plan Goals: Discussed the patient's history, examination and lab results with Dr. Mie. Dr. Mei accepted the patient for continued evaluation and further treatment as an inpatient at [facility]. Sepsis Event Note (ED) - Evaluation Sepsis Screening Result: No Definite Risk - Focused Exam Vital Signs: Vital Signs Temp Pulse Resp BP Pulse Ox 11/06/20 13:43 35.8 C L 100 16 110/56 L 87 L - My Orders Last 24 Hours: My Active Orders 11/06/20 13:55 CULTURE BLOOD [BC] Stat 11/06/20 15:10 Chest 2V [CR] Urgent B-TYPE NATRIURETIC PEPTIDE,BNP [CHEM] Stat 11/06/20 15:29 Admission Diagnosis [ADT] Urgent Admission Status [Patient Status] [ADT] Routine 11/06/20 15:32 CULTURE BLOOD [BC] Stat - Assessment/Plan Last 24 Hours: My Active Orders 11/06/20 13:55 CULTURE BLOOD [BC] Stat 11/06/20 15:10 Chest 2V [CR] Urgent B-TYPE NATRIURETIC PEPTIDE,BNP [CHEM] Stat 11/06/20 15:29 Admission Diagnosis [ADT] Urgent Admission Status [Patient Status] [ADT] Routine 11/06/20 15:32 CULTURE BLOOD [BC] Stat
[2020-11-06 14:33] LABS: ANION GAP 13.7 mEq/L (7-13)
--- NOTE | 2020-11-06 16:04 | CR ---
EXAMINATION: Chest 2V SEX: Female AGE: 70 years CLINICAL HISTORY: 70-year-old hypertensive, diabetic and now HYPOXIC female with significant history of left lung transplant (18 August 2015) for severe COPD in this ex-smoker. Comparison AP film at this institution 07 December 2017 ([place], lateral comparison chest 22 January 2015). INTERPRETATION: 1. New postoperative changes left hemithorax including resection of the left fifth rib and surgical sutures. 2. Severe bullous emphysematous disease right upper lobe unchanged. 3. Kyphosis/Scoliosis and chronic shift of the cardiac silhouette to the left of midline present 2018 film. 4. No new evidence of lung mass, hilar lymphadenopathy or focal alveolar consolidation. No peripheral "groundglass" interstitial lung densities. 5. Cardiac size and configuration unchanged. No new pulmonary vascular congestion, alveolar edema or dependent pleural fluid accumulation. 6. No pneumothorax or pneumomediastinum. No free subdiaphragmatic air. CONCLUSION: No acute new cardiopulmonary abnormality.
[2020-11-06] MEDS ORDERED: Acetaminophen 325 MG Tab PO PRN ×2 (16:26→16:37)
[2020-11-06] MEDS ORDERED: Docusate Sodium 100 MG Cap PO PRN (16:26)
[2020-11-06] MEDS ORDERED: Ondansetron 4 MG Tab.DIS PO PRN (16:26)
[2020-11-06] MEDS ORDERED: DICLOFENAC SODIUM TOP PRN (16:37)
[2020-11-06] MEDS ORDERED: Lidocaine 5% 700 MG Patch TRDERM PRN (16:37)
[2020-11-06] MEDS: Sodium Chloride 0.9% 1,000 ML IV SCH (17:22)
[2020-11-06] MEDS: methylPREDNISolone Sodium Succinate 40 MG/1 ML SDV IVPUSH SCH (17:26)
[2020-11-06] MEDS: Fluconazole 100 MG Tab PO SCH (17:26)
[2020-11-06] MEDS: cefTRIAXone 1 GM in Sodium Chloride 0.9% 50 ML IV SCH (17:29)
[2020-11-06] MEDS ORDERED: 50% Dextrose in Water 50 ML Syringe IV PRN (17:31)
[2020-11-06] MEDS ORDERED: Glucagon,Human Recombinant 1 MG Vial IM PRN (17:31)
[2020-11-06] MEDS: Albuterol/Ipratropium 3.0-0.5 MG/3 ML Neb Soln NEB SCH (17:52)
[2020-11-06] MEDS: Insulin Lispro 100 Units/ML 3 ML Vial SUBCUT SCH ×2 (18:31→23:26)
--- NOTE | 2020-11-06 21:41 | HP ---
CHIEF COMPLAINT: Sores on the abdominal fold and underneath breast folds. HISTORY OF PRESENT ILLNESS: The patient is a 70-year-old female who was admitted through the emergency room because the patient was complaining of just not feeling good with poor appetite and also complaining of a rash underneath her breast and on the upper abdomen that is getting painful and her symptoms started getting worse after she got discharged from [facility] last week on November 02. She mentioned that her appetite has been poor and she is slightly short of breath, and in the emergency room, her oxygen saturation was below 90% on room air. The patient was recently discharged from [facility] in [place] last November 02 because of viral enteritis. She initially was admitted here in [facility] because of nausea, vomiting, and diarrhea when she tested positive for COVID infection and stool was tested for C. diff and Shigella toxin which came back negative, and because of her symptoms persisting and was not getting better here at [facility], she was transferred to [facility] and she was given IV fluids. Gastroenterology was consulted and cholestyramine was recommended and this did help the patient's symptomatology and she was subsequently discharged, and now, she is having this persistent redness and pain on the abdominal folds and underneath the breast folds. Appetite is also poor and her saturation is low on room air. Because of this and the rash is not getting better with topical nystatin, she was then admitted for further evaluation and management of her hypoxemia as well as the rash. PAST MEDICAL HISTORY: As in HPI, remarkable for: 1. COPD. 2. Sleep apnea. 3. History of lung transplantation. 4. Type 2 diabetes mellitus. 5. Hypothyroidism. 6. Again, recent COVID-19 infection. 7. Viral enteritis. FAMILY HISTORY: Noncontributory. SOCIAL HISTORY: Patient is . The patient is a former smoker, but has quit smoking several years ago. She is a nonalcohol drinker. REVIEW OF SYSTEMS: As in HPI. Patient denies any headache. Denies any dysuria, abdominal pain, or any chest pain. HOME MEDICATIONS: 1. Combigan eyedrops. 2. Calcium with vitamin D3. 3. Dapsone. 4. Lutein. 5. Magnesium oxide. 6. Multivitamin. 7. Omeprazole. 8. Tacrolimus. 9. Prednisone. 10.Acetaminophen. 11.Loperamide. 12.Bumex. 13.Voltaren Gel. 14.Lantus. 15.Levothyroxine. 16.Losartan. 17.Ozempic. 18.Simvastatin. 19.Glipizide. 20.Mycophenolate. 21.Ciprofloxacin. 22.Humalog. ALLERGIES: Cipro, azithromycin, sulfa, and iodinated contrast dye. PHYSICAL EXAMINATION: General: The patient is alert and oriented, but looks weak, but not in any acute distress. Vital Signs: Blood pressure is 110/56, pulse of 100, respiration of 16, temperature of 96.4, and saturation is 87% on room air. SHEENT: Normocephalic. Skin: Turgor diminished. Mucous membranes moist. Neck: Supple. No JVD. No lymphadenopathy. Heart: Regular rate and rhythm. Normal S1 and S2. No gallops. No rubs. Lungs: Have diminished breath sounds on the right lung field and left lung has good air entry, but with some expiratory wheeze noted. Abdomen: Soft, nontender. Bowel sounds positive. Extremities: Negative for any significant pedal edema. No calf tenderness. Skin: Remarkable for intertrigo on the abdominal fold as well as the breast folds with secondary bacterial infection. LABORATORY DATA: CBC: WBC is 8.5, hemoglobin is 10.9, hematocrit is 34.3, platelet is 161. D-dimer is 1870. Comp panel; BUN is 41, creatinine is 1.92, glucose is 217, calcium is 7.3, total protein is 5.4, albumin is 2.1. The rest of the panel unremarkable. BNP is 55, which is within normal limits. Chest x-ray showed no acute new cardiopulmonary abnormality. ADMITTING DIAGNOSES: 1. Chronic obstructive pulmonary disease exacerbation with hypoxia. 2. Intertrigo/candidiasis of the abdominal folds and breast folds, not responsive to nystatin topically with secondary bacterial infection. 3. History of lung transplantation. 4. Type 2 diabetes mellitus. 5. Chronic obstructive pulmonary disease. 6. Hypothyroidism. TREATMENT PLAN: The patient is going to be admitted to acute care. She will be empirically started on IV antibiotics and IV steroid for her COPD exacerbation. She will be given IV fluids, and I am also going to put her on Diflucan for the candidiasis on her abdominal folds, and she will be on DVT prophylaxis. She will be on sliding scale insulin and the rest of the management as necessary. The patient is a full code. [facility] /[id number]
[2020-11-06] MEDS: glipiZIDE 5 MG Tab PO SCH (23:25)
[2020-11-06] MEDS: Insulin Glarg,Human.Rec.Analog 100 Unit/ML SUBCUT SCH (23:26)
[2020-11-06] MEDS: Enoxaparin 30 MG/0.3 ML Syringe SUBCUT SCH (23:27)
[2020-11-06] MEDS: MYCOPHENOLATE 500 MG PO SCH (23:28)
[2020-11-06] MEDS: Omeprazole 20 MG Cap.CR PO SCH (23:28)
[2020-11-06] MEDS: TACROLIMUS 0.5 MG PO SCH (23:29)
[2020-11-06] MEDS: DAPSONE 25 MG PO SCH (23:48)
[2020-11-07] MEDS: Albuterol/Ipratropium 3.0-0.5 MG/3 ML Neb Soln NEB SCH ×3 (00:06→16:04)
[2020-11-07] MEDS: methylPREDNISolone Sodium Succinate 40 MG/1 ML SDV IVPUSH SCH ×4 (00:06→17:32)
[2020-11-07] MEDS: Levothyroxine 112 MCG Tab PO SCH (06:31)
[2020-11-07 06:46] LABS: ANION GAP 19.2 mEq/L (7-13)
[2020-11-07] MEDS: Sodium Chloride 0.9% 1,000 ML IV SCH ×2 (07:40→21:15)
[2020-11-07] MEDS ORDERED: Glucagon,Human Recombinant 1 MG Vial IM PRN (07:41)
[2020-11-07] MEDS ORDERED: 50% Dextrose in Water 50 ML Syringe IV PRN (07:41)
[2020-11-07] MEDS: Insulin Lispro 100 Units/ML 3 ML Vial SUBCUT SCH ×4 (09:21→22:06)
[2020-11-07] MEDS: Fluconazole 100 MG Tab PO SCH (09:23)
[2020-11-07] MEDS: Omeprazole 20 MG Cap.CR PO SCH ×2 (09:23→22:27)
[2020-11-07] MEDS: Multivitamins,Therapeutic Tab PO SCH (09:23)
[2020-11-07] MEDS: glipiZIDE 5 MG Tab PO SCH ×2 (09:25→22:39)
[2020-11-07] MEDS: MYCOPHENOLATE 500 MG PO SCH ×2 (09:28→22:24)
[2020-11-07] MEDS: TACROLIMUS 0.5 MG PO SCH ×2 (09:29→22:25)
--- NOTE | 2020-11-07 09:32 | PN ---
DATE: 11/07/2020 SUBJECTIVE: The patient is a 70-year-old lady admitted with chronic obstructive pulmonary disease exacerbation and significant intertrigo/candidiasis on the breast folds and abdominal folds. The patient this morning is feeling slightly better as compared to yesterday. Her appetite is slowly improving. The patient denies any worsening of shortness of breath. Denies any chest pain. So far, the nausea is slowly improving. LABORATORY DATA: Lab workup this morning. CBC: WBC is 5.5, hemoglobin is 10.1, hematocrit is 32.6, platelet is 168. Chem-6: Chloride is 96, BUN is 41, creatinine is 1.71, glucose is 407. OBJECTIVE: Vital Signs: Blood pressure is 129/71, pulse of 96, respirations 20, temperature of 97.5, saturation is 90% on 2.5 L per nasal cannula. Heart: Regular rate and rhythm. Lungs: Left lung has good air entry and the wheezing has improved, and right lung has diminished breath sound. Abdomen: Soft, nontender. Bowel sounds positive. Extremities: Negative for any significant pedal edema. No calf tenderness. MEDICATIONS: Reviewed. PLAN: We will continue with her IV antibiotics and IV Solu-Medrol, and we will increase her sliding scale to the high dose as her blood sugar has been running elevated. [facility] /[id number]
[2020-11-07] MEDS ORDERED: Insulin Lispro 100 Units/ML 3 ML Vial SUBCUT ONE (13:00)
[2020-11-07] MEDS ORDERED: Albuterol/Ipratropium 3.0-0.5 MG/3 ML Neb Soln NEB PRN (16:46)
[2020-11-07] MEDS: cefTRIAXone 1 GM in Sodium Chloride 0.9% 50 ML IV SCH (16:54)
[2020-11-07] MEDS: COMBIGAN EYEBOTH SCH ×3 (17:44→22:18)
[2020-11-07] MEDS: LUMIGAN 0.01% EYEBOTH SCH ×2 (22:09→22:11)
[2020-11-07] MEDS: Insulin Glarg,Human.Rec.Analog 100 Unit/ML SUBCUT SCH (22:15)
[2020-11-07] MEDS: Enoxaparin 30 MG/0.3 ML Syringe SUBCUT SCH (22:20)
[2020-11-08] MEDS: methylPREDNISolone Sodium Succinate 40 MG/1 ML SDV IVPUSH SCH (05:05)
[2020-11-08] MEDS: Levothyroxine 112 MCG Tab PO SCH (05:10)
[2020-11-08] MEDS: glipiZIDE 5 MG Tab PO SCH ×2 (08:19→21:51)
[2020-11-08] MEDS: Fluconazole 100 MG Tab PO SCH (08:20)
[2020-11-08] MEDS: Multivitamins,Therapeutic Tab PO SCH (08:20)
[2020-11-08] MEDS: COMBIGAN EYEBOTH SCH ×2 (08:25→21:50)
[2020-11-08] MEDS: Insulin Lispro 100 Units/ML 3 ML Vial SUBCUT SCH ×4 (08:26→22:05)
[2020-11-08] MEDS ORDERED: DAPSONE 25 MG PO SCH (09:00)
[2020-11-08] MEDS: MYCOPHENOLATE 500 MG PO SCH ×2 (09:46→21:55)
[2020-11-08] MEDS: TACROLIMUS 0.5 MG PO SCH ×2 (09:50→21:52)
[2020-11-08] MEDS ORDERED: Azithromycin 250 MG Tab PO SCH (10:00)
[2020-11-08] MEDS: predniSONE 20 MG Tab PO SCH (10:00)
[2020-11-08] MEDS: Omeprazole 20 MG Cap.CR PO SCH ×2 (10:00→21:50)
[2020-11-08] MEDS ORDERED: Albuterol/Ipratropium 3.0-0.5 MG/3 ML Neb Soln NEB SCH (11:00)
[2020-11-08] MEDS ORDERED: Albuterol/Ipratropium 3.0-0.5 MG/3 ML Neb Soln NEB PRN (11:51)
--- NOTE | 2020-11-08 12:29 | PCM.PN ---
- General Info Date of Service: 11/08/20 Subjective Update: Patient is a 70-year-old female who was admitted for COPD exacerbation and intertrigo/candidiasis of the breast and abdominal folds. There was concern for superimposed bacterial infection so the patient was also treated with ceftriaxone along with Diflucan and nystatin powder. The patient is also on prednisone for COPD exacerbation. Azithromycin was not started due to allergy Overnight the patient has no complaints and reports feeling better with improved shortness of breath. Patient did however have elevated blood sugars likely secondary to steroids Functional Status: Reports: Pain Controlled, Tolerating Diet, Ambulating, Urinating - Review of Systems General: Reports: No Symptoms HEENT: Reports: No Symptoms Pulmonary: Reports: Shortness of Breath Cardiovascular: Reports: No Symptoms Gastrointestinal: Reports: No Symptoms Genitourinary: Reports: No Symptoms Musculoskeletal: Reports: No Symptoms Skin: Reports: No Symptoms Neurological: Reports: No Symptoms Psychiatric: Reports: No Symptoms - Patient Data Vitals - Most Recent: Last Vital Signs Temp 97.0 F 11/08/20 08:00 Pulse 82 11/08/20 08:00 Resp 24 H 11/08/20 08:00 BP 128/70 11/08/20 08:00 Pulse Ox 94 L 11/08/20 08:00 Weight - Most Recent: 210 lb 6.4 oz I&O - Last 24 Hours: Intake & Output 11/07/20 11/08/20 11/08/20 22:59 06:59 14:59 Intake Total 3520 300 250 Output Total 500 500 Balance 3020 -200 250 Lab Results Last 24 Hours: Laboratory Results - last 24 hr 11/07/20 11/07/20 11/08/20 Range/Units 16:31 21:40 07:43 POC Glucose 349 H 303 H 184 H (70-105) mg/dl 11/08/20 Range/Units 11:05 POC Glucose 392 H (70-105) mg/dl [facility] Results Last 24 Hours: Microbiology 11/06/20 15:55 Aerobic Blood Culture - Preliminary Blood - Venous - Iv Start NO GROWTH AFTER 1 DAY Anaerobic Blood Culture - Preliminary NO GROWTH AFTER 1 DAY 11/06/20 14:07 Aerobic Blood Culture - Preliminary Blood NO GROWTH AFTER 1 DAY Anaerobic Blood Culture - Preliminary NO GROWTH AFTER 1 DAY Med Orders - Current: Current Medications Acetaminophen (Tylenol) 650 mg PO Q4H PRN PRN Reason: Pain (Mild 1-3)/fever Albuterol/Ipratropium (Duoneb 3.0-0.5 Mg/3 Ml) 3 ml NEB Q4HRRT PRN PRN Reason: Wheezing Dextrose/Water (Dextrose 50% In Water) 50 ml IV ASDIRECTED PRN PRN Reason: Hypoglycemia Dextrose/Water (Dextrose 50% In Water) 50 ml IV ASDIRECTED PRN PRN Reason: Hypoglycemia Docusate Sodium (Colace) 100 mg PO BID PRN PRN Reason: Constipation Enoxaparin Sodium (Lovenox) 30 mg SUBCUT BEDTIME [facility] Last Admin: 11/07/20 22:20 Dose: 30 mg Documented by: Fluconazole (Diflucan) 100 mg PO DAILY [facility] Last Admin: 11/08/20 08:20 Dose: 100 mg Documented by: Glipizide (Glucotrol) 10 mg PO BID [facility] Last Admin: 11/08/20 08:19 Dose: 10 mg Documented by: Glucagon (Glucagen) 1 mg IM ASDIRECTED PRN PRN Reason: Hypoglycemia Glucagon (Glucagen) 1 mg IM ASDIRECTED PRN PRN Reason: Hypoglycemia Ceftriaxone Sodium 1 gm/ (Sodium Chloride) 50 mls @ 100 mls/hr IV Q24H [facility] Last Admin: 11/07/20 16:54 Dose: 100 mls/hr Documented by: Insulin Glargine (Lantus) 18 unit SUBCUT BEDTIME [facility] Last Admin: 11/07/20 22:15 Dose: 18 units Documented by: Insulin Human Lispro (Humalog) 0 unit SUBCUT WITHMEALSANDBED [facility]; Protocol Last Admin: 11/08/20 11:52 Dose: 15 units Documented by: Levothyroxine Sodium (Levothyroxine) 112 mcg PO ACBRK [facility] Last Admin: 11/08/20 05:10 Dose: 112 mcg Documented by: Lidocaine (Lidoderm 5%) 700 mg TRDERM DAILY PRN PRN Reason: Pain Miscellaneous Information (Remove Patch) 1 ea TRDERM BEDTIME [facility] Last Admin: 11/07/20 22:46 Dose: Not Given Documented by: Multivitamins (Thera) 1 each PO DAILY [facility] Last Admin: 11/08/20 08:20 Dose: 1 each Documented by: Vanessa 0.01% Ophth (SolnOwn Med) 1 drop EYEBOTH BEDTIME [facility] Last Admin: 11/07/20 22:11 Dose: 1 drop Documented by: Combigan 0.2%/0.5% Ophth SolnOwn Med* * 1 drop EYEBOTH BID [facility] Last Admin: 11/08/20 08:25 Dose: 1 drop Documented by: Mycophenolate 500 Mg (Tablet Own Med) 3 each PO BID [facility] Last Admin: 11/08/20 09:46 Dose: 3 each Documented by: Tacrolimus 0.5mg (Capsules Own Med) 1 each PO BID [facility] Last Admin: 11/08/20 09:50 Dose: 1 each Documented by: Tacrolimus 1 Mg (Capsule Own Med) 1 each PO BID [facility] Last Admin: 11/08/20 09:47 Dose: 1 each Documented by: Dapsone 25 Mg Tablet (Own Med) 50 mg PO MoWeFr@2100 [facility] Last Admin: 11/06/20 23:48 Dose: 50 mg Documented by: Nystatin (Nystop) 0 gm TOP TID PRN PRN Reason: Rash Omeprazole (Omeprazole) 20 mg PO BID [facility] Last Admin: 11/08/20 10:00 Dose: 20 mg Documented by: Ondansetron HCl (Zofran Odt) 4 mg PO Q4H PRN PRN Reason: nausea, able to take PO Prednisone (Prednisone) 40 mg PO WITHBREAKFAST [facility] Last Admin: 11/08/20 10:00 Dose: 40 mg Documented by: Discontinued Medications Acetaminophen (Tylenol) 975 mg PO TID PRN PRN Reason: Pain Albuterol/Ipratropium (Duoneb 3.0-0.5 Mg/3 Ml) 3 ml NEB Q6HRRT [facility] Last Admin: 11/07/20 16:04 Dose: Not Given Documented by: Albuterol/Ipratropium (Duoneb 3.0-0.5 Mg/3 Ml) 3 ml NEB Q4HRRT PRN PRN Reason: Wheezing Albuterol/Ipratropium (Duoneb 3.0-0.5 Mg/3 Ml) 3 ml NEB Q4HRRT [facility] Last Admin: 11/08/20 11:54 Dose: Not Given Documented by: Azithromycin (Zithromax) 500 mg PO DAILY [facility] Last Admin: 11/08/20 11:54 Dose: Not Given Documented by: Sodium Chloride (Normal Saline) 1,000 mls @ 75 mls/hr IV ASDIRECTED [facility] Last Admin: 11/07/20 21:15 Dose: 75 mls/hr Documented by: Insulin Human Lispro (Humalog) 0 unit SUBCUT WITHMEALSANDBED [facility]; Protocol Last Admin: 11/06/20 23:26 Dose: 3 units Documented by: Insulin Human Lispro (Humalog) 10 unit SUBCUT ONETIME ONE Stop: 11/07/20 13:01 Last Admin: 11/07/20 13:02 Dose: Not Given Documented by: Methylprednisolone Sodium Succinate (Solu-Medrol) 40 mg IVPUSH Q8H [facility] Last Admin: 11/07/20 16:52 Dose: 40 mg Documented by: Methylprednisolone Sodium Succinate (Solu-Medrol) 40 mg IVPUSH Q12H [facility] Last Admin: 11/08/20 05:05 Dose: 40 mg Documented by: Dapsone 25 Mg Tablet (Own Med) 50 mg PO MoWeFr@0900 [facility] Non-Formulary Medication (Diclofenac Sodium [Voltaren 1% Gel]) 1 gram TOP BID PRN PRN Reason: Pain - Exam Quality Assessment: Supplemental Oxygen General: Alert, Oriented, Cooperative HEENT: EOMI Neck: Trachea Midline Lungs: Clear to Auscultation, Normal Respiratory Effort Cardiovascular: Regular Rate, No Murmurs GI/Abdominal Exam: Normal Bowel Sounds Extremities: Normal Inspection Skin: Warm, Dry Neurological: No New Focal Deficit Sepsis Event Note - Evaluation Sepsis Screening Result: No Definite Risk - Focused Exam Vital Signs: Vital Signs Temp Pulse Resp BP BP Pulse Ox 11/08/20 08:00 97.0 F 82 24 H 128/70 94 L 11/08/20 05:15 93 L 11/08/20 04:59 97.4 F 79 20 119/74 88 L - Problem List Review Problem List Initiated/Reviewed/Updated: No - My Orders Last 24 Hours: My Active Orders 11/08/20 09:30 predniSONE 40 mg PO WITHBREAKFAST 11/08/20 10:16 Nystatin [Nystop] See Dose Instructions TOP TID PRN 11/08/20 11:51 Albuterol/Ipratropium [DuoNeb 3.0-0.5 MG/3 ML] 3 ml NEB Q4HRRT PRN - Plan Plan:: Patient will continue on ceftriaxone, Diflucan, nystatin powder for intertrigo. Patient will continue prednisone for COPD exacerbation. Once patient weaned from nasal cannula patient will be ready for discharge. We will continue sliding scale insulin for elevated blood sugars due to steroids.
[2020-11-08] MEDS: Nystatin Topical Powder 30 GM Bottle TOP PRN ×2 (15:07→22:16)
[2020-11-08] MEDS: cefTRIAXone 1 GM in Sodium Chloride 0.9% 50 ML IV SCH (16:39)
[2020-11-08] MEDS: DAPSONE 25 MG PO SCH (21:54)
[2020-11-08] MEDS: LUMIGAN 0.01% EYEBOTH SCH (21:56)
[2020-11-08] MEDS: Insulin Glarg,Human.Rec.Analog 100 Unit/ML SUBCUT SCH (22:07)
[2020-11-08] MEDS: Enoxaparin 30 MG/0.3 ML Syringe SUBCUT SCH (22:10)
[2020-11-09] MEDS: Levothyroxine 112 MCG Tab PO SCH (06:11)
[2020-11-09] MEDS ORDERED: Cefdinir 250 MG/5 ML Susp 100 ML Bottle PO SCH (07:15)
[2020-11-09] MEDS: Insulin Lispro 100 Units/ML 3 ML Vial SUBCUT SCH ×2 (08:22→12:20)
[2020-11-09] MEDS: predniSONE 20 MG Tab PO SCH (08:23)
[2020-11-09] MEDS: Omeprazole 20 MG Cap.CR PO SCH (08:24)
[2020-11-09] MEDS: Multivitamins,Therapeutic Tab PO SCH (08:24)
[2020-11-09] MEDS: COMBIGAN EYEBOTH SCH (08:25)
[2020-11-09] MEDS: MYCOPHENOLATE 500 MG PO SCH (08:26)
[2020-11-09] MEDS: TACROLIMUS 0.5 MG PO SCH (08:26)
[2020-11-09] MEDS: glipiZIDE 5 MG Tab PO SCH (08:29)
[2020-11-09 08:43] VITALS: BP 132/60; PULSE 83
--- NOTE | 2020-11-09 12:18 | PCM.DCSUM1 ---
Discharge Summary - Hospital Course Free Text/Narrative:: Patient is a 70-year-old female who was admitted for COPD exacerbation and intertrigo/candidiasis of the breast and abdominal folds. There was concern for superimposed bacterial infection so the patient was also treated with ceftriaxone along with Diflucan and nystatin powder. The patient is also on prednisone for COPD exacerbation. Azithromycin was not started due to allergy. Patient was transitioned to cefdinir from ceftriaxone. She will continue pred nisone for 3 more days and Diflucan for 4 weeks. Diflucan later held per pharmacy due to interaction with anti rejection medications. Patient will be followed up with [facility] for nursing care and OT. No wound care needed. Patient will apply nystatin to affected breast folds. Diagnosis: Stroke: No - Discharge Data Discharge Date: 11/09/20 Discharge Disposition: Home, Self-Care 01 Condition: Good - Referral to Home Health Date of Face to Face Encounter: 11/09/20 Primary Care Physician: Vinny Mei MD Skilled Need: Home health nursing and OT - Discharge Diagnosis/Problem(s) (1) Acute exacerbation of chronic obstructive airways disease SNOMED Code(s): 161125954 ICD Code: J44.1 - CHRONIC OBSTRUCTIVE PULMONARY DISEASE W (ACUTE) EXACERBATION Status: Resolved Current Visit: Yes (2) Yeast infection of the skin SNOMED Code(s): 36808960 ICD Code: B37.2 - CANDIDIASIS OF SKIN AND NAIL Status: Acute Current Visit: Yes - Patient Summary/Data Consults: Consultations 11/07/20 09:42 Consult to Physical Therapy [PT Evaluation and Treatment] [CONS] Routine 11/07/20 09:43 Consult to Occupational Therapy [OT Evaluation and Treatment] [CONS] Routine - Patient Instructions Diet: Usual Diet as Tolerated Activity: As Tolerated - Discharge Plan *PRESCRIPTION DRUG MONITORING PROGRAM REVIEWED*: Not Applicable *COPY OF PRESCRIPTION DRUG MONITORING REPORT IN PATIENT ASHISH: Not Applicable Prescriptions/Med Rec: Fluconazole [Diflucan] 150 mg PO WEEKLY #4 tablet Nystatin [Nystop] 1 appful TOP TID PRN 7 Days #1 bottle PRN Reason: Rash Cefdinir [Omnicef 250 MG/5 ML Susp] 600 mg PO Q24H 3 Days #3 cap predniSONE 40 mg PO WITHBREAKFAST 3 Days #3 tablet Home Medications: Home Meds Brimonidine/Timolol [Combigan 0.2%/0.5% Ophth Soln] 1 drop EYEBOTH BID 04/24/14 [History] Calcium Carbonate/Vitamin D3 [Calcium 600-Vit D3 400 Tablet] 1 tab PO BID 06/28/17 [History] Cholecalciferol (Vitamin D3) [Vitamin D3] 1,000 unit PO DAILY 06/28/17 [History] Dapsone 50 mg PO .MONWEDFRI 06/28/17 [History] Lutein 6 mg PO DAILY 06/28/17 [History] Magnesium Oxide 1,200 mg PO BID 06/28/17 [History] Multivitamin [Multi-Day Vitamins] 1 tab PO DAILY 06/28/17 [History] Omeprazole 20 mg PO BID 06/28/17 [History] Tacrolimus 1 mg PO BID 06/28/17 [History] predniSONE [Prednisone] 5 mg PO QAM 06/28/17 [History] Acetaminophen 650 mg PO TID PRN 12/07/17 [History] predniSONE [Prednisone] 2.5 mg PO QPM 12/07/17 [History] Lidocaine 5% [Lidoderm 5%] 1 patch TRDERM DAILY PRN 10/26/20 [History] Loperamide [Imodium] 2 mg PO Q6H PRN 10/26/20 [History] Bumetanide 0.5 mg PO DAILY 10/27/20 [History] Diclofenac Sodium [Voltaren 1% Gel] 1 gram TOP BID PRN 10/27/20 [History] Insulin Glargine,Hum.Rec.Anlog [Basaglar Kwikpen U-100] 18 units SQ BEDTIME 10/27/20 [History] Losartan [Cozaar] 100 mg PO DAILY 10/27/20 [History] Semaglutide [Ozempic] 1 mg SQ .WEEKLY 10/27/20 [History] Tacrolimus 0.5 mg PO BID 10/27/20 [History] glipiZIDE [Glucotrol] 10 mg PO BID 10/27/20 [History] mycophenolate mofetiL [Mycophenolate Mofetil] 1,500 mg PO BID 10/27/20 [History] Bimatoprost [Lumigan 0.03% Ophth Soln] 1 drop EYEBOTH BEDTIME 10/29/20 [Rx] Bismuth Subsalicylate [Pepto Bismol] 262 mg PO TID tab.chew 10/29/20 [Rx] Levothyroxine 112 mcg PO ACBRK tablet 10/29/20 [Rx] Ondansetron [Zofran ODT] 4 mg PO Q4H PRN tab.dis 10/29/20 [Rx] Albuterol [Proventil HFA] 2 puff INH Q6HR PRN 11/06/20 [History] Bismuth Subsalicylate [Pepto Bismol] 262 mg PO TID PRN 11/06/20 [History] Scopolamine [Transderm-Scop] 1 each TD Q72H 11/06/20 [History] [place]-3 Fatty Acids/Fish Oil [Fish Oil 1,000 mg Capsule] 2,000 mg PO DAILY 11/07/20 [History] Cefdinir [Omnicef 250 MG/5 ML Susp] 600 mg PO Q24H 3 Days #3 cap 11/09/20 [Rx] Fluconazole [Diflucan] 150 mg PO WEEKLY #4 tablet 11/09/20 [Rx] Non-Formulary Medication [NF Drug] 1 each PO BID each 11/09/20 [Rx] Non-Formulary Medication [NF Drug] 1 each PO BID each 11/09/20 [Rx] Non-Formulary Medication [NF Drug] 3 each PO BID each 11/09/20 [Rx] Nystatin [Nystop] 1 appful TOP TID PRN 7 Days #1 bottle 11/09/20 [Rx] predniSONE 40 mg PO WITHBREAKFAST 3 Days #3 tablet 11/09/20 [Rx] Patient Handouts: Nystatin topical powder, Prednisone delayed-release tablets, Fluconazole tablets, Skin Yeast Infection Referrals: Vinny Mei MD [Primary Care Provider] - - Discharge Summary/Plan Comment DC Time >30 min.: Yes - General Info Date of Service: 11/09/20 Admission Dx/Problem (Free Text: COPD exacerbation, intertrigo of bilateral breast folds Subjective Update: Patient is a 70-year-old female who was admitted for COPD exacerbation and intertrigo/candidiasis of the breast and abdominal folds. There was concern for superimposed bacterial infection so the patient was also treated with ceftriaxon e along with Diflucan and nystatin powder. The patient is also on prednisone for COPD exacerbation. Azithromycin was not started due to allergy Overnight the patient has no complaints and reports feeling better with improved shortness of breath. Patient did however have elevated blood sugars likely secondary to steroids Functional Status: Reports: Tolerating Diet, Ambulating - Review of Systems General: Reports: No Symptoms HEENT: Reports: No Symptoms Pulmonary: Reports: No Symptoms Cardiovascular: Reports: No Symptoms Gastrointestinal: Reports: No Symptoms Genitourinary: Reports: No Symptoms Musculoskeletal: Reports: No Symptoms Skin: Reports: No Symptoms, Rash Neurological: Reports: No Symptoms - Patient Data Vitals - Most Recent: Last Vital Signs Temp 96.7 F L 11/09/20 08:00 Pulse 83 11/09/20 08:00 Resp 20 11/09/20 08:00 BP 132/60 11/09/20 08:00 Pulse Ox 90 L 11/09/20 08:00 Weight - Most Recent: 210 lb 6.4 oz I&O - Last 24 hours: Intake & Output 11/08/20 11/09/20 11/09/20 22:59 06:59 14:59 Intake Total 440 500 Output Total 600 Balance 440 -100 Lab Results - Last 24 hrs: Laboratory Results - last 24 hr 11/08/20 11/08/20 11/09/20 Range/Units 16:56 21:02 07:52 POC Glucose 356 H 389 H 208 H (70-105) mg/dl 11/09/20 Range/Units 12:10 POC Glucose 253 H (70-105) mg/dl [facility] Results - Last 24 hrs: Microbiology 11/06/20 15:55 Aerobic Blood Culture - Preliminary Blood - Venous - Iv Start NO GROWTH AFTER 2 DAYS Anaerobic Blood Culture - Preliminary NO GROWTH AFTER 2 DAYS 11/06/20 14:07 Aerobic Blood Culture - Preliminary Blood NO GROWTH AFTER 2 DAYS Anaerobic Blood Culture - Preliminary NO GROWTH AFTER 2 DAYS Med Orders - Current: Current Medications Acetaminophen (Tylenol) 650 mg PO Q4H PRN PRN Reason: Pain (Mild 1-3)/fever Albuterol/Ipratropium (Duoneb 3.0-0.5 Mg/3 Ml) 3 ml NEB Q4HRRT PRN PRN Reason: Wheezing Cefdinir (Omnicef 250 Mg/5 Ml Susp) 600 mg PO Q24H [facility] Stop: 11/12/20 07:16 Dextrose/Water (Dextrose 50% In Water) 50 ml IV ASDIRECTED PRN PRN Reason: Hypoglycemia Dextrose/Water (Dextrose 50% In Water) 50 ml IV ASDIRECTED PRN PRN Reason: Hypoglycemia Docusate Sodium (Colace) 100 mg PO BID PRN PRN Reason: Constipation Enoxaparin Sodium (Lovenox) 30 mg SUBCUT BEDTIME [facility] Last Admin: 11/08/20 22:10 Dose: 30 mg Documented by: Fluconazole (Diflucan) 100 mg PO We@0900 [facility] Glipizide (Glucotrol) 10 mg PO BID [facility] Last Admin: 11/09/20 08:29 Dose: 10 mg Documented by: Glucagon (Glucagen) 1 mg IM ASDIRECTED PRN PRN Reason: Hypoglycemia Glucagon (Glucagen) 1 mg IM ASDIRECTED PRN PRN Reason: Hypoglycemia Insulin Glargine (Lantus) 18 unit SUBCUT BEDTIME [facility] Last Admin: 11/08/20 22:07 Dose: 18 units Documented by: Insulin Human Lispro (Humalog) 0 unit SUBCUT WITHMEALSANDBED [facility]; Protocol Last Admin: 11/09/20 08:22 Dose: 6 units Documented by: Levothyroxine Sodium (Levothyroxine) 112 mcg PO ACBRK [facility] Last Admin: 11/09/20 06:11 Dose: 112 mcg Documented by: Lidocaine (Lidoderm 5%) 700 mg TRDERM DAILY PRN PRN Reason: Pain Miscellaneous Information (Remove Patch) 1 ea TRDERM BEDTIME [facility] Last Admin: 11/08/20 22:12 Dose: Not Given Documented by: Multivitamins (Thera) 1 each PO DAILY [facility] Last Admin: 11/09/20 08:24 Dose: 1 each Documented by: Lumigan 0.01% Ophth (SolnOwn Med) 1 drop EYEBOTH BEDTIME [facility] Last Admin: 11/08/20 21:56 Dose: 1 drop Documented by: Combigan 0.2%/0.5% Ophth SolnOwn Med* * 1 drop EYEBOTH BID [facility] Last Admin: 11/09/20 08:25 Dose: 1 drop Documented by: Mycophenolate 500 Mg (Tablet Own Med) 3 each PO BID [facility] Last Admin: 11/09/20 08:26 Dose: 3 each Documented by: Tacrolimus 0.5mg (Capsules Own Med) 1 each PO BID [facility] Last Admin: 11/09/20 08:26 Dose: 1 each Documented by: Tacrolimus 1 Mg (Capsule Own Med) 1 each PO BID [facility] Last Admin: 11/09/20 08:27 Dose: 1 each Documented by: Dapsone 25 Mg Tablet (Own Med) 50 mg PO MoWeFr@2100 [facility] Last Admin: 11/08/20 21:54 Dose: 50 mg Documented by: Nystatin (Nystop) 0 gm TOP TID PRN PRN Reason: Rash Last Admin: 11/08/20 22:16 Dose: 1 applic Documented by: Omeprazole (Omeprazole) 20 mg PO BID [facility] Last Admin: 11/09/20 08:24 Dose: 20 mg Documented by: Ondansetron HCl (Zofran Odt) 4 mg PO Q4H PRN PRN Reason: nausea, able to take PO Prednisone (Prednisone) 40 mg PO WITHBREAKFAST [facility] Last Admin: 11/09/20 08:23 Dose: 40 mg Documented by: Discontinued Medications Acetaminophen (Tylenol) 975 mg PO TID PRN PRN Reason: Pain Albuterol/Ipratropium (Duoneb 3.0-0.5 Mg/3 Ml) 3 ml NEB Q6HRRT [facility] Last Admin: 11/07/20 16:04 Dose: Not Given Documented by: Albuterol/Ipratropium (Duoneb 3.0-0.5 Mg/3 Ml) 3 ml NEB Q4HRRT PRN PRN Reason: Wheezing Albuterol/Ipratropium (Duoneb 3.0-0.5 Mg/3 Ml) 3 ml NEB Q4HRRT [facility] Last Admin: 11/08/20 11:54 Dose: Not Given Documented by: Azithromycin (Zithromax) 500 mg PO DAILY [facility] Last Admin: 11/08/20 11:54 Dose: Not Given Documented by: Fluconazole (Diflucan) 100 mg PO DAILY [facility] Last Admin: 11/08/20 08:20 Dose: 100 mg Documented by: Sodium Chloride (Normal Saline) 1,000 mls @ 75 mls/hr IV ASDIRECTED [facility] Last Admin: 11/07/20 21:15 Dose: 75 mls/hr Documented by: Ceftriaxone Sodium 1 gm/ (Sodium Chloride) 50 mls @ 100 mls/hr IV Q24H [facility] Last Admin: 11/08/20 16:39 Dose: 100 mls/hr Documented by: Insulin Human Lispro (Humalog) 0 unit SUBCUT WITHMEALSANDBED [facility]; Protocol Last Admin: 11/06/20 23:26 Dose: 3 units Documented by: Insulin Human Lispro (Humalog) 10 unit SUBCUT ONETIME ONE Stop: 11/07/20 13:01 Last Admin: 11/07/20 13:02 Dose: Not Given Documented by: Methylprednisolone Sodium Succinate (Solu-Medrol) 40 mg IVPUSH Q8H [facility] Last Admin: 11/07/20 16:52 Dose: 40 mg Documented by: Methylprednisolone Sodium Succinate (Solu-Medrol) 40 mg IVPUSH Q12H [facility] Last Admin: 11/08/20 05:05 Dose: 40 mg Documented by: Dapsone 25 Mg Tablet (Own Med) 50 mg PO MoWeFr@0900 [facility] Non-Formulary Medication (Diclofenac Sodium [Voltaren 1% Gel]) 1 gram TOP BID PRN PRN Reason: Pain - Exam General: Reports: Alert, Oriented HEENT: Reports: EOMI Neck: Reports: Trachea Midline Lungs: Reports: Normal Respiratory Effort Cardiovascular: Reports: Regular Rate GI/Abdominal Exam: No Distention Extremities: Normal Inspection Skin: Reports: Rash Wound/Incisions: Reports: Healing Well Neurological: Reports: No New Focal Deficit Psy/Mental Status: Reports: Alert, Normal Affect, Normal Mood
[2020-11-15] MEDS ORDERED: Fluconazole 100 MG Tab PO SCH (09:00)
== END 2020-11-09 13:39 | disposition home or self-care (01) | DRG 191 ==
LOC: DL.ED 12:20 → DL.MS 15:29
PROVIDERS: ADMIT Internal Medicine; ATTEND Internal Medicine
DX: J44.1 Chronic obstructive pulmonary disease with (acute) exacerbation (principal); Z94.2 Lung transplant status; H35.30 Unspecified macular degeneration; H40.9 Unspecified glaucoma; E78.00 Pure hypercholesterolemia, unspecified; G47.30 Sleep apnea, unspecified; K21.9 Gastro-esophageal reflux disease without esophagitis; G89.29 Other chronic pain; M54.9 Dorsalgia, unspecified; B37.2 Candidiasis of skin and nail; L30.4 Erythema intertrigo; E20.9 Hypoparathyroidism, unspecified; E55.9 Vitamin D deficiency, unspecified; G47.33 Obstructive sleep apnea (adult) (pediatric); E11.9 Type 2 diabetes mellitus without complications; Z79.4 Long term (current) use of insulin; E03.9 Hypothyroidism, unspecified; Z91.041 Radiographic dye allergy status; Z79.890 Hormone replacement therapy; Z86.16 Personal history of COVID-19; Z79.52 Long term (current) use of systemic steroids; Z79.899 Other long term (current) drug therapy; Z88.1 Allergy status to other antibiotic agents; Z88.2 Allergy status to sulfonamides; Z88.8 Allergy status to other drugs, medicaments and biological substances; R09.02 Hypoxemia
CPT/HCPCS: 36415; 71046; 80048; 80053; 81001; 82962; 83605; 83880; 85025; 85379; 87040; 94640; 97162-GP; 97166-GO; 99222; 99232; 99239; 99284; 99285-25; A9270-GY; J0696; J1650; J1815-GY; J2920; J7030; J7512; J7620-GY

== ENCOUNTER 2020-11-12 17:03 | Emergency (ER) | payer MEDICARE, BC ==
[2020-11-12] MEDS ORDERED: Diltiazem 25 MG/5 ML SDV IVPUSH ONE (17:16)
[2020-11-12] MEDS ORDERED: Diltiazem 25 MG/5 ML SDV ONE (17:19)
[2020-11-12 17:25] VITALS: BP 92/58
[2020-11-12] MEDS ORDERED: Digoxin 500 MCG/2 ML Amp IVPUSH ONE (17:35)
[2020-11-12 17:40] VITALS: PULSE 125
[2020-11-12 17:47] LABS: ANION GAP 14.7 mEq/L (7-13)
[2020-11-12] MEDS ORDERED: Potassium Chloride 10 MEQ in Premix Bag 1 BAG IV ONE ×2 (17:54→17:56)
[2020-11-12] MEDS ORDERED: Potassium Chloride 10 MEQ Tab.ER PO ONE (17:55)
[2020-11-12] MEDS ORDERED: Lidocaine 1% 30 ML SDV INJECT ONE (17:56)
--- NOTE | 2020-11-12 17:57 | EDM.PDOC ---
"<Charlene Samano - Last Filed: 11/12/20 18:37> ED HPI GENERAL MEDICAL PROBLEM - General Chief Complaint: Cardiovascular Problem Stated Complaint: AMBULANCE Time Seen by Provider: 11/12/20 17:50 - Related Data Allergies Allergy/AdvReac Type Severity Reaction Status Date / Time ciprofloxacin Allergy Severe Difficulty Verified 11/12/20 17:22 Breathing azithromycin [From Zithromax] Allergy Difficulty Verified 11/12/20 17:22 Breathing Iodinated Contrast Media Allergy Hives Verified 11/12/20 17:22 [Iodinated Contrast Media - IV Dye] iodine Allergy Hives Verified 11/12/20 17:22 Sulfa (Sulfonamide Allergy Cannot Verified 11/12/20 17:22 Antibiotics) Remember Home Meds: Home Meds Brimonidine/Timolol [Combigan 0.2%/0.5% Ophth Soln] 1 drop EYEBOTH BID 04/24/14 [History] Calcium Carbonate/Vitamin D3 [Calcium 600-Vit D3 400 Tablet] 1 tab PO BID 06/28/17 [History] Cholecalciferol (Vitamin D3) [Vitamin D3] 1,000 unit PO DAILY 06/28/17 [History] Dapsone 50 mg PO .MONWEDFRI 06/28/17 [History] Lutein 6 mg PO DAILY 06/28/17 [History] Magnesium Oxide 1,200 mg PO BID 06/28/17 [History] Multivitamin [Multi-Day Vitamins] 1 tab PO DAILY 06/28/17 [History] Omeprazole 20 mg PO BID 06/28/17 [History] Tacrolimus 1 mg PO BID 06/28/17 [History] predniSONE [Prednisone] 5 mg PO QAM 06/28/17 [History] Acetaminophen 650 mg PO TID PRN 12/07/17 [History] predniSONE [Prednisone] 2.5 mg PO QPM 12/07/17 [History] Lidocaine 5% [Lidoderm 5%] 1 patch TRDERM DAILY PRN 10/26/20 [History] Loperamide [Imodium] 2 mg PO Q6H PRN 10/26/20 [History] Bumetanide 0.5 mg PO DAILY 10/27/20 [History] Diclofenac Sodium [Voltaren 1% Gel] 1 gram TOP BID PRN 10/27/20 [History] Insulin Glargine,Hum.Rec.Anlog [Basaglar Kwikpen U-100] 18 units SQ BEDTIME 10/13 03/02 [History] Losartan [Cozaar] 100 mg PO DAILY 10/27/20 [History] Semaglutide [Ozempic] 1 mg SQ .WEEKLY 10/27/20 [History] Tacrolimus 0.5 mg PO BID 10/27/20 [History] glipiZIDE [Glucotrol] 10 mg PO BID 10/27/20 [History] mycophenolate mofetiL [Mycophenolate Mofetil] 1,500 mg PO BID 10/27/20 [History] Bimatoprost [Lumigan 0.03% Ophth Soln] 1 drop EYEBOTH BEDTIME 10/29/20 [Rx] Bismuth Subsalicylate [Pepto Bismol] 262 mg PO TID tab.chew 10/29/20 [Rx] Levothyroxine 112 mcg PO ACBRK tablet 10/29/20 [Rx] Ondansetron [Zofran ODT] 4 mg PO Q4H PRN tab.dis 10/29/20 [Rx] Albuterol [Proventil HFA] 2 puff INH Q6HR PRN 11/06/20 [History] Bismuth Subsalicylate [Pepto Bismol] 262 mg PO TID PRN 11/06/20 [History] Scopolamine [Transderm-Scop] 1 each TD Q72H 11/06/20 [History] [place]-3 Fatty Acids/Fish Oil [Fish Oil 1,000 mg Capsule] 2,000 mg PO DAILY 11/07/20 [History] Cefdinir [Omnicef 250 MG/5 ML Susp] 600 mg PO Q24H 3 Days #3 cap 11/09/20 [Rx] Fluconazole [Diflucan] 150 mg PO WEEKLY #4 tablet 11/09/20 [Rx] Non-Formulary Medication [NF Drug] 1 each PO BID each 11/09/20 [Rx] Non-Formulary Medication [NF Drug] 1 each PO BID each 11/09/20 [Rx] Non-Formulary Medication [NF Drug] 3 each PO BID each 11/09/20 [Rx] Nystatin [Nystop] 1 appful TOP TID PRN 7 Days #1 bottle 11/09/20 [Rx] predniSONE 40 mg PO WITHBREAKFAST 3 Days #3 tablet 11/09/20 [Rx] Course - Radiology Interpretation Free Text/Narrative:: [facility] [place] [facility] Final Radiology Report Call: [phone] assistance Online chat: [email or web address] Name: RENE VINSON Age: 70Years F Date: 11/12/2020 SSN: -- : [id number] Study: CR CHEST 1V FRONTAL Requesting Physician: Anish Haynes Images: 1 Addl Studies: Provided Clinical History: new onset afib copd Contrast: Contrast Medium: Contrast Amount: Contrast Method: Page 1 of 2 PROCEDURE INFORMATION: Exam: XR Chest, 1 View Exam date and time: 11/12/2020 5:59 PM Age: 70 years old Clinical indication: Other: Chest pain; Additional info: New onset afib copd TECHNIQUE: Imaging protocol: XR of the chest Views: 1 view. COMPARISON: CR Chest 2V 11/06/2020 3:34 PM FINDINGS: Lungs: Left mid to lower lung field increased lung markings which may represent an area of pneumonitis or possibly chronic lung scarring. This is stable since 11/06/2020. Right lung is clear of acute infiltrates. Pleural spaces: No pleural effusions. Heart/Mediastinum: Normal heart size. Surgical clips within the mediastinum of uncertain significance. Vasculature: Atherosclerotic changes of the aortic arch without aneurysmal features. Bones/joints: Degenerative thoracic spine and mild to moderate dextroscoliosis.. IMPRESSION: 1. Left mid to lower lung field stable area of increased lung markings which may represent chronic scarring or interstitial disease. No significant change since previous study 11/06/2020. 2. Right lung remains clear. 3. No pleural effusions. 4. Normal heart size. 5. Degenerative thoracic spine changes and mild dextroscoliosis. RENE VINSON | Final Radiology Report CONFIDENTIALITY STATEMENT This report is intended only for use by the referring physician, and only in accordance with law. If you received this in error, call [phone]. Page 2 of 2 6. Previous mediastinal surgery. This is of uncertain type. Multiple surgical clips are noted. Recommend clinical correlation. Thank you for allowing us to participate in the care of your patient. Dictated and Authenticated by: Jorge Perdomo MD 11/12/2020 6:10 PM Central Time ([place] & [place]) Departure - Departure Disposition: DC/Tfer to [facility] Clinical Impression: New onset atrial fibrillation, Atrial fibrillation with rapid ventricular response, Hypokalemia, Hypomagnesemia, History of lung transplant, History of COVID-19, History of COPD Forms: ED Department Discharge, Interfacility Transfer EMTALA <Anish Haynes Diogenes - Last Filed: 11/12/20 18:43> ED HPI GENERAL MEDICAL PROBLEM - General Source of Information: Reports: Patient History Limitations: Reports: No Limitations - History of Present Illness INITIAL COMMENTS - FREE TEXT/NARRATIVE: 70 y/o F reports feeling fatigued and weak since being discharged from [facility] in [place] yesterday. Pt states she feels like she cant catch her breath, and needs to sleep all the time. Yesterday pt had episodes throughout the day where she could feel her heart fluttering in her chest. The episodes would come on with exertion and subside with rest. Today pt noticed she had fluttering in her chest all day that would not resolve with rest. Pt finally became so tired and sob she called the ambulance. Pt was admitted to [facility] on the of this month for treatment of bilateral yeast infections under her breasts. Denies mcdonald, vision prob, abd pn, pelvic pain, burning with urination, extremity pain. 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: Musculoskeletal History: Reports: Back Pain, Chronic Neurological History: Reports: None Psychiatric History: Reports: None Endocrine/Metabolic History: Reports: Diabetes, Type II, Hypoparathyroidism, Hypothyroidism, Vitamin D Deficiency Hematologic History: Reports: None Immunologic History: Reports: Other (See Below) Other Immunologic History: Lung transplant Oncologic (Cancer) History: Reports: None Dermatologic History: Reports: None - Infectious Disease History Infectious Disease History: Reports: Novel Coronavirus, Shingles, Other (See Below) Other Infectious Disease History: COVID-19 - Past Surgical History Head Surgeries/Procedures: Reports: None HEENT Surgical History: Reports: None Cardiovascular Surgical History: Reports: None Respiratory Surgical History: Reports: Other (See Below) Other Respiratory Surgeries/Procedures: left lung transplant 2014 GI Surgical History: Reports: Colonoscopy Female Surgical History: Reports: Tubal Ligation Endocrine Surgical History: Reports: None Neurological Surgical History: Reports: None Musculoskeletal Surgical History: Reports: None Oncologic Surgical History: Reports: None Dermatological Surgical History: Reports: None Social & Family History - Family History Family Medical History: No Pertinent Family History - Caffeine Use Caffeine Use: Reports: Coffee, Soda, Tea Caffeine Use Comment: 1-2 CUPS DAILY - Living Situation & Occupation Living situation: Reports: Occupation: Retired ED ROS GENERAL - Review of Systems Review Of Systems: Comprehensive ROS is negative, except as noted in HPI. ED EXAM, GENERAL - Physical Exam Exam: See Below Exam Limited By: No Limitations General Appearance: Alert, WD/WN, No Apparent Distress Eye Exam: Bilateral Eye: PERRL Throat/Mouth: Normal Inspection, Normal Lips, Normal Teeth, Normal Gums, Normal Oropharynx, Normal Voice, No Airway Compromise Head: Atraumatic, Normocephalic Neck: Normal Inspection, Supple, Non-Tender, Full Range of Motion Respiratory/Chest: No Respiratory Distress, Lungs Clear, Normal Breath Sounds, No Accessory Muscle Use, Chest Non-Tender Cardiovascular: No JVD, No Murmur, Irregularly Irregular, Other (tachycardic) GI/Abdominal: Soft, Non-Tender (Female) Exam: Deferred Rectal (Female) Exam: Deferred Extremities: Other (2+ pedal edema) Neurological: Alert, Oriented, CN II-XII Intact, Normal Cognition, Normal Gait, Normal Reflexes, No Motor/Sensory Deficits Psychiatric: Normal Affect, Normal Mood Skin Exam: Warm, Dry, Intact, Normal Color, No Rash #1 Interpretation EKG Date: 11/12/20 Time: 17:16 Rhythm: Other (afib rvr) Rate (Beats/Min): 148 [place]: RAD-Right [place] Deviation P-Wave: Absent ST-T: Depressed QT: Prolonged EKG Interpretation Comments: atrial fibrillation with RVR, Right axis deviation, prolonged qt interval, possible rate dependent ischemia v4-v6 Course - Re-Assessments/Exams Free Text/Narrative Re-Assessment/Exam: 11/12/20 18:09 Corrected Calcium with hypoalbuminemia: Corrected calcium = 8.4 g/dL Sepsis Event Note (ED) - Evaluation Sepsis Screening Result: No Definite Risk <MairateeJalil Tod - Last Filed: 11/12/20 18:47> ED HPI GENERAL MEDICAL PROBLEM - History of Present Illness INITIAL COMMENTS - FREE TEXT/NARRATIVE: In addition to 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 In early she wa admitted to [facility] in for COVID. Pt was admitted here on 11/06/20 with diarrhea, COPD, and severe candidiasis of the chest/breast folds. She denies any previous cardiac history. Course - Vital Signs Last Recorded V/S: Last Vital Signs Temp 96.4 F L 11/12/20 17:24 Pulse 125 H 11/12/20 17:39 Resp 26 H 11/12/20 17:24 BP 92/58 L 11/12/20 17:24 Pulse Ox 995 H 11/12/20 17:24 - Orders/Labs/Meds Orders: Active Orders 24 hr Category Date Time Status EKG Documentation Completion [RC] STAT Care 11/12/20 17:07 Active UA RFX DEVORA AND CULT IF INDIC [URIN] Stat Lab 11/12/20 17:07 Ordered Diltiazem 125 mg Med 11/12/20 18:00 Active Sodium Chloride 0.9% [Normal Saline] 100 ml IV TITRATE Heparin Sodium/0.45% NaCl [Heparin 25,000 Units in 1/2 Med 11/12/20 18:30 Active NS 500 ML] 25,000 units in 500 ml IV TITRATE Magnesium Sulfate/Water [Magnesium Sulfate in Water 2 Med 11/12/20 18:00 Active GM/50 ML] 4 gm in 100 ml IV ONETIME Potassium Chloride [KCl in Water 10 MEQ/100 ML] 10 meq Med 11/12/20 17:54 Active Premix Bag 1 bag IV ONETIME Potassium Chloride [KCl in Water 10 MEQ/100 ML] 10 meq Med 11/12/20 17:56 Active Premix Bag 1 bag IV ONETIME Medication Orders Diltiazem HCl 125 mg/ Sodium (Chloride) 125 mls @ 10 mls/hr IV TITRATE EFRAÍN; Protocol Last Admin: 11/12/20 18:19 Dose: 10 mg/hr, 10 mls/hr Documented by: RALPH Potassium Chloride 10 meq/ (Premix) 100 mls @ 100 mls/hr IV ONETIME ONE Stop: 11/12/20 18:53 Last Admin: 11/12/20 18:14 Dose: 100 mls/hr Documented by: RALPH Potassium Chloride 10 meq/ (Premix) 100 mls @ 100 mls/hr IV ONETIME ONE Stop: 11/12/20 18:55 Last Admin: 11/12/20 18:20 Dose: 100 mls/hr Documented by: RALPH Magnesium Sulfate (Magnesium Sulfate In Water 2 Gm/50 Ml) 4 gm in 100 mls @ 100 mls/hr IV ONETIME EFRAÍN Last Admin: 11/12/20 18:14 Dose: 100 mls/hr Documented by: RALPH Heparin Sodium/Sodium Chloride (Heparin 25,000 Units In 1/2 Ns 500 Ml) 25,000 units in 500 mls @ 34.455 mls/hr IV TITRATE EFRAÍN; Protocol Last Admin: 11/12/20 18:34 Dose: 18 units/kg/hr, 34.455 mls/hr Documented by: RALPH Cosigned by: LUCILA Labs: Laboratory Tests 11/12/20 11/12/20 11/12/20 Range/Units 17:20 17:20 17:20 WBC 13.0 H (5.0-10.0) 10^3/uL RBC 4.35 (4.2-5.4) 10^6/uL Hgb 12.1 D (12.0-16.0) g/dL Hct 36.9 L (37.0-47.0) % MCV 84.8 D (80-100) fL MCH 27.8 (27.0-34.0) pg MCHC 32.8 L (33.0-35.0) g/dL Plt Count 327 D (150-450) 10^3/uL Neut % (Auto) 88.5 H (42.2-75.2) % Lymph % (Auto) 5.4 L (20.5-50.1) % [place] % (Auto) 4.2 (2-8) % Eos % (Auto) 1.7 (1.0-3.0) % Baso % (Auto) 0.2 (0.0-1.0) % Add Manual Diff Yes Neutrophils % (Manual) 88 H (42-75) % Band Neutrophils % 1 % Lymphocytes % (Manual) 6 L (20-50) % Monocytes % (Manual) 2 (2-8) % Eosinophils % (Manual) 3 (1-3) % PT (9.0-12.0) SEC INR (0.9-1.2) APTT (22.0-34.0) SEC D-Dimer, Quantitative 3350 H (0-400) ng/mL Sodium 140 (136-145) mmol/L Potassium 2.7 L D (3.5-5.1) mmol/L Chloride 101 (98-107) mmol/L Carbon Dioxide 27 (21-32) mmol/L Anion Gap 14.7 H (7-13) mEq/L BUN 26 H (7-18) mg/dL Creatinine 1.32 H (0.55-1.02) mg/dL Est Cr Clr Drug Dosing 38.19 mL/min Estimated GFR (MDRD) 40 BUN/Creatinine Ratio 19.7 (No establ ref range) Glucose 334 H (74-99) mg/dL Calcium 7.0 L (8.5-10.1) mg/dL Magnesium (1.8-2.4) mg/dL Total Bilirubin 0.4 (0.2-1.0) mg/dL AST 24 (15-37) U/L ALT 32 (14-59) U/L Alkaline Phosphatase 68 (46-116) U/L Troponin I 0.060 H* (0.000-0.056) ng/mL B-Natriuretic Peptide 168 H (0-100) pg/ml Total Protein 5.2 L (6.4-8.2) g/dL Albumin 2.3 L (3.4-5.0) g/dL Globulin 2.9 Albumin/Globulin Ratio 0.79 Free T4 (0.76-1.46) ng/dL TSH, Ultra Sensitive (0.36-3.74) uIU/mL 11/12/20 11/12/20 Range/Units 17:20 17:20 WBC (5.0-10.0) 10^3/uL RBC (4.2-5.4) 10^6/uL Hgb (12.0-16.0) g/dL Hct (37.0-47.0) % MCV (80-100) fL MCH (27.0-34.0) pg MCHC (33.0-35.0) g/dL Plt Count (150-450) 10^3/uL Neut % (Auto) (42.2-75.2) % Lymph % (Auto) (20.5-50.1) % [place] % (Auto) (2-8) % Eos % (Auto) (1.0-3.0) % Baso % (Auto) (0.0-1.0) % Add Manual Diff Neutrophils % (Manual) (42-75) % Band Neutrophils % % Lymphocytes % (Manual) (20-50) % Monocytes % (Manual) (2-8) % Eosinophils % (Manual) (1-3) % PT 11.5 (9.0-12.0) SEC INR 1.2 (0.9-1.2) APTT 19.8 L (22.0-34.0) SEC D-Dimer, Quantitative (0-400) ng/mL Sodium (136-145) mmol/L Potassium (3.5-5.1) mmol/L Chloride (98-107) mmol/L Carbon Dioxide (21-32) mmol/L Anion Gap (7-13) mEq/L BUN (7-18) mg/dL Creatinine (0.55-1.02) mg/dL Est Cr Clr Drug Dosing mL/min Estimated GFR (MDRD) BUN/Creatinine Ratio (No establ ref range) Glucose (74-99) mg/dL Calcium (8.5-10.1) mg/dL Magnesium 0.6 L (1.8-2.4) mg/dL Total Bilirubin (0.2-1.0) mg/dL AST (15-37) U/L ALT (14-59) U/L Alkaline Phosphatase (46-116) U/L Troponin I (0.000-0.056) ng/mL B-Natriuretic Peptide (0-100) pg/ml Total Protein (6.4-8.2) g/dL Albumin (3.4-5.0) g/dL Globulin Albumin/Globulin Ratio Free T4 1.70 H (0.76-1.46) ng/dL TSH, Ultra Sensitive 0.51 (0.36-3.74) uIU/mL Meds: Medications Generic Name Dose Route Start Last Admin Trade Name Duglas PRN Reason Stop Dose Admin Diltiazem HCl 125 mg/ Sodium 125 mls @ 10 mls/hr 11/12/20 18:00 11/12/20 18:19 Chloride IV 10 mg/hr TITRATE EFRAÍN 10 mls/hr Administration Protocol 10 MG/HR Potassium Chloride 10 meq/ 100 mls @ 100 mls/hr 11/12/20 17:54 11/12/20 18:14 Premix IV 11/12/20 18:53 100 mls/hr ONETIME ONE Administration Potassium Chloride 10 meq/ 100 mls @ 100 mls/hr 11/12/20 17:56 11/12/20 18:20 Premix IV 11/12/20 18:55 100 mls/hr ONETIME ONE Administration Magnesium Sulfate 4 gm in 100 mls @ 100 mls/hr 11/12/20 18:00 11/12/20 18:14 Magnesium Sulfate In Water 2 Gm/50 Ml IV 100 mls/hr ONETIME EFRAÍN Administration Heparin Sodium/Sodium Chloride 25,000 units in 500 mls @ 34.455 mls/hr 11/12/20 18:30 11/12/20 18:34 Heparin 25,000 Units In 1/2 Ns 500 Ml IV 18 units/kg/hr TITRATE EFRAÍN 34.455 mls/hr Administration Protocol 18 UNITS/KG/HR Discontinued Medications Generic Name Dose Route Start Last Admin Trade Name Duglas PRN Reason Stop Dose Admin Digoxin 500 mcg 11/12/20 17:35 11/12/20 17:39 Lanoxin IVPUSH 11/12/20 17:36 500 mcg ONETIME ONE Administration Diltiazem HCl 10 mg 11/12/20 17:16 11/12/20 17:16 Diltiazem IVPUSH 11/12/20 17:17 20 mg ONETIME ONE Administration Diltiazem HCl Confirm 11/12/20 17:19 11/12/20 18:19 Diltiazem Administered 11/12/20 17:20 Not Given Dose 25 mg .ROUTE .STK-MED ONE Heparin Sodium (Porcine) 4,000 units 11/12/20 18:24 11/12/20 18:34 Heparin Sodium IVPUSH 11/12/20 18:25 4,000 units .BOLUS ONE Administration Lidocaine HCl 30 ml 11/12/20 17:56 11/12/20 18:14 Xylocaine-Mpf 1% INJECT 11/12/20 17:57 30 ml ONETIME ONE Administration Potassium Chloride 60 meq 11/12/20 17:55 11/12/20 18:13 Klor-Con 10 PO 11/12/20 17:56 Not Given ONETIME ONE - Re-Assessments/Exams Free Text/Narrative Re-Assessment/Exam: 11/12/20 18:29 I personally performed or re-performed the physical examination and medical decision making. I have verified all student documentation or findings, including history, physical exam and/or medical decision making. Departure - Departure Time of Disposition: 18:30 Reason for Transfer *Q: Other Condition: Serious Sepsis Event Note (ED) - Focused Exam Vital Signs: Vital Signs Temp Pulse Pulse Resp BP Pulse Ox 11/12/20 17:39 125 H 11/12/20 17:24 96.4 F L 140 H 26 H 92/58 L 995 H - My Orders Last 24 Hours: My Active Orders 11/12/20 17:54 Potassium Chloride [KCl in Water 10 MEQ/100 ML] 10 meq Premix Bag 1 bag IV ONETIME 11/12/20 17:56 Potassium Chloride [KCl in Water 10 MEQ/100 ML] 10 meq Premix Bag 1 bag IV ONETIME 11/12/20 18:00 Magnesium Sulfate/Water [Magnesium Sulfate in Water 2 GM/50 ML] 4 gm in 100 ml IV ONETIME 11/12/20 18:30 Heparin Sodium/0.45% NaCl [Heparin 25,000 Units in 1/2 NS 500 ML] 25,000 units in 500 ml IV TITRATE - Assessment/Plan Last 24 Hours: My Active Orders 11/12/20 17:54 Potassium Chloride [KCl in Water 10 MEQ/100 ML] 10 meq Premix Bag 1 bag IV ONETIME 11/12/20 17:56 Potassium Chloride [KCl in Water 10 MEQ/100 ML] 10 meq Premix Bag 1 bag IV ONETIME 11/12/20 18:00 Magnesium Sulfate/Water [Magnesium Sulfate in Water 2 GM/50 ML] 4 gm in 100 ml IV ONETIME 11/12/20 18:30 Heparin Sodium/0.45% NaCl [Heparin 25,000 Units in 1/2 NS 500 ML] 25,000 units in 500 ml IV TITRATE"
[2020-11-12] MEDS ORDERED: Magnesium Sulfate/Water 4 GM/100 ML BAG IV SCH (18:00)
[2020-11-12] MEDS ORDERED: Diltiazem 125 MG in Sodium Chloride 0.9% 100 ML IV SCH (18:00)
--- NOTE | 2020-11-12 18:10 | CR ---
PROCEDURE INFORMATION: Exam: XR Chest, 1 View Exam date and time: 11/12/2020 5:59 PM Age: 70 years old Clinical indication: Other: Chest pain; Additional info: New onset afib copd TECHNIQUE: Imaging protocol: XR of the chest Views: 1 view. COMPARISON: CR Chest 2V 11/06/2020 3:34 PM FINDINGS: Lungs: Left mid to lower lung field increased lung markings which may represent an area of pneumonitis or possibly chronic lung scarring. This is stable since 11/06/2020. Right lung is clear of acute infiltrates. Pleural spaces: No pleural effusions. Heart/Mediastinum: Normal heart size. Surgical clips within the mediastinum of uncertain significance. Vasculature: Atherosclerotic changes of the aortic arch without aneurysmal features. Bones/joints: Degenerative thoracic spine and mild to moderate dextroscoliosis.. IMPRESSION: 1. Left mid to lower lung field stable area of increased lung markings which may represent chronic scarring or interstitial disease. No significant change since previous study 11/06/2020. 2. Right lung remains clear. 3. No pleural effusions. 4. Normal heart size. 5. Degenerative thoracic spine changes and mild dextroscoliosis. 6. Previous mediastinal surgery. This is of uncertain type. Multiple surgical clips are noted. Recommend clinical correlation.
[2020-11-12 18:20] LABS: PTT,PARTIAL THROMBOPLSTIN TIME 19.8 SEC (22.0-34.0)
[2020-11-12] MEDS ORDERED: Heparin Sodium 5,000 Units/ML Vial IVPUSH ONE (18:24)
[2020-11-12] MEDS ORDERED: Heparin Sodium/0.45% NaCl 25,000 UNITS/500 ML BAG IV SCH (18:30)
[2020-11-12] MEDS ORDERED: Sodium Chloride 0.9% with KCl 1,000 ML IV SCH (19:00)
== END 2020-11-12 19:35 ==
LOC: DL.ED 17:03
DX: I48.91 Unspecified atrial fibrillation (principal); E87.6 Hypokalemia; J44.9 Chronic obstructive pulmonary disease, unspecified; E83.42 Hypomagnesemia; E88.09 Other disorders of plasma-protein metabolism, not elsewhere classified; E78.00 Pure hypercholesterolemia, unspecified; K21.9 Gastro-esophageal reflux disease without esophagitis; E11.9 Type 2 diabetes mellitus without complications; Z79.4 Long term (current) use of insulin; Z86.16 Personal history of COVID-19; Z94.2 Lung transplant status; Z88.1 Allergy status to other antibiotic agents; Z91.041 Radiographic dye allergy status; Z88.2 Allergy status to sulfonamides; Z88.8 Allergy status to other drugs, medicaments and biological substances; Z79.899 Other long term (current) drug therapy
CPT/HCPCS: 36415; 71045; 80053; 83735; 83880; 84439; 84443; 84484; 85025; 85379; 85610; 85730; 93005; 96365; 96368; 96375; 96376; 99285; J1160; J1644; J2001; J3475; J3480; J3490

== ENCOUNTER 2021-11-26 08:56 | Emergency (ER) | payer MEDICARE, BC ==
[2021-11-26 09:21] VITALS: BP 109/76; PULSE 110
[2021-11-26] MEDS ORDERED: methylPREDNISolone Sodium Succinate 125 MG/2 ML SDV IVPUSH ONE (09:50)
[2021-11-26] MEDS ORDERED: Sodium Chloride 0.9% 500 ML IV SCH (10:00)
[2021-11-26 10:06] LABS: ANION GAP 11.8 mEq/L (7-13); CHLORIDE,CL 103 mmol/L (98-107); SODIUM,NA 137 mmol/L (136-145)
[2021-11-26] MEDS ORDERED: Cefepime 1 GM in Sodium Chloride 0.9% 50 ML IV ONE (10:31)
[2021-11-26 10:43] LABS: CORONAVIRUS COVID-19 NAA NEGATIVE (NEGATIVE)
[2021-11-26] MEDS ORDERED: fentaNYL 100 MCG/2 ML SDV IVPUSH ONE (10:47)
[2021-11-26] MEDS ORDERED: Sodium Chloride 0.9% 1,000 ML IV ONE (10:59)
[2021-11-26 12:25] LABS: BASE EXCESS ARTERIAL -3 mmol/L ((-2)-(+3)); BICARBONATE,ARTERIAL 21.1 mmol/L (22-26); O2 DELIVERY DEVICE BIPAP; O2 SATURATION ARTERIAL 97 % (95-100); PCO2 ARTERIAL 39 mmHg (35-45); PO2 ARTERIAL 89 mmHg (70-100)
[2021-11-26 12:27] LABS: ALLEN TEST pos; O2 FLOW RATE 0
[2021-11-26] MEDS ORDERED: Hydrocortisone Sodium Succinate 100 MG/2 ML SDV IVPUSH ONE (12:49)
[2021-11-26] MEDS ORDERED: [UNRECOGNIZED DRUG - OTHER] PO SCH (13:00)
[2021-11-26] MEDS ORDERED: Hydrocortisone Sodium Succinate 250 MG/2 ML SDV IV SCH (13:00)
[2021-11-26] MEDS ORDERED: TACROLIMUS 1 MG PO SCH (13:15)
[2021-11-26] MEDS ORDERED: TACROLIMUS 0.5 MG PO SCH (13:15)
[2021-11-27 05:46] LABS: BORDETELLA PARAPERT IS1001 Not Detected (Not Detected)
== END 2021-11-26 14:45 ==
LOC: DL.ED 08:56
DX: J44.1 Chronic obstructive pulmonary disease with (acute) exacerbation (principal); J18.9 Pneumonia, unspecified organism; E78.00 Pure hypercholesterolemia, unspecified; K21.9 Gastro-esophageal reflux disease without esophagitis; E11.9 Type 2 diabetes mellitus without complications; E03.9 Hypothyroidism, unspecified; Z94.2 Lung transplant status; Z88.1 Allergy status to other antibiotic agents; Z91.041 Radiographic dye allergy status; Z88.2 Allergy status to sulfonamides; Z79.899 Other long term (current) drug therapy; Z86.16 Personal history of COVID-19; Z87.891 Personal history of nicotine dependence; Z20.822 Contact with and (suspected) exposure to COVID-19
CPT/HCPCS: 0240U; 36415; 36600; 71045; 80053; 82803; 83605; 84484; 85025; 85379; 85610; 86140; 87040; 87486; 87581; 87633; 87798; 93005; 96365; 96367; 96375; 99285-25; J0692; J1720; J2930; J3010; J3370; J7030; J7040; J7050

== ENCOUNTER 2022-02-20 10:24 | Emergency (ER) | payer MEDICARE, BC ==
[2022-02-20] MEDS ORDERED: Sodium Chloride 0.9% 10 ML Syringe FLUSH PRN (10:42)
[2022-02-20] MEDS ORDERED: GI Cocktail Oral Solution 30 ML PO ONE (11:25)
[2022-02-20 11:35] LABS: PTT,PARTIAL THROMBOPLSTIN TIME 22.9 SEC (22.0-34.0)
[2022-02-20 11:40] LABS: ANION GAP 8.7 mEq/L (7-13)
[2022-02-20 13:00] VITALS: BP 147/60; PULSE 96
== END 2022-02-20 17:27 | disposition home or self-care (01) ==
LOC: DL.ED 10:24
DX: R07.89 Other chest pain (principal); R10.13 Epigastric pain; R74.01 Elevation of levels of liver transaminase levels; I48.91 Unspecified atrial fibrillation; E78.00 Pure hypercholesterolemia, unspecified; J44.9 Chronic obstructive pulmonary disease, unspecified; K21.9 Gastro-esophageal reflux disease without esophagitis; E03.9 Hypothyroidism, unspecified; E11.9 Type 2 diabetes mellitus without complications; Z86.16 Personal history of COVID-19; Z79.899 Other long term (current) drug therapy; Z79.4 Long term (current) use of insulin; Z79.01 Long term (current) use of anticoagulants; Z88.1 Allergy status to other antibiotic agents; Z91.041 Radiographic dye allergy status; Z88.2 Allergy status to sulfonamides
CPT/HCPCS: 36415; 71045; 74176; 80053; 82150; 83690; 83880; 84484; 85025; 85610; 85730; 87040; 93005; 93010; 99283; 99285-25; A9270-GY

== ENCOUNTER 2023-08-26 17:45 | Emergency (ER) | payer MEDICARE, BC ==
[2023-08-26] MEDS ORDERED: Sodium Chloride 0.9% 10 ML Syringe FLUSH PRN (19:03)
[2023-08-26 19:17] LABS: BASOPHILS PERCENT AUTO 0.1 % (0.0-1.0); EOSINOPHILS PERCENT AUTO 0.4 % (1.0-3.0); HEMATOCRIT 39.7 % (37.0-47.0); HEMOGLOBIN 12.5 g/dL (12.0-16.0); MEAN CORPUSCULAR HGB CONC 31.5 g/dL (33.0-35.0); MEAN CORPUSCULAR VOLUME 92.1 fL (80-100); MONOCYTES PERCENT AUTO 5.3 % (2-8); NEUTROPHILS PERCENT AUTO 86.2 % (42.2-75.2); PLATELET COUNT,PLT 280 10^3/uL (150-450); RED BLOOD CELL COUNT 4.31 10^6/uL (4.2-5.4); WHITE BLOOD CELL COUNT,WBC 7.8 10^3/uL (5.0-10.0)
[2023-08-26 19:34] LABS: PROTHROMBIN TIME 10.3 SEC (9.0-12.0); PTT,PARTIAL THROMBOPLSTIN TIME 30.9 SEC (22.0-34.0)
[2023-08-26 19:36] LABS: ALBUMIN 2.7 g/dL (3.4-5.0); ANION GAP 13.8 mEq/L (7-13); BILIRUBIN TOTAL 0.3 mg/dL (0.2-1.0); BUN/CREATININE RATIO 24.8 (No establ ref range); C-REACTIVE PROTEIN 5.59 ng/dL (<=0.50); CALCIUM 9.1 mg/dL (8.5-10.1); CREATININE 1.45 mg/dL (0.55-1.02); EST CRCL DRUG DOSING (CG) 33.31 mL/min; MAGNESIUM 1.4 mg/dL (1.8-2.4); POTASSIUM,K 3.8 mmol/L (3.5-5.1); PROTEIN TOTAL,TP 6.9 g/dL (6.4-8.2)
[2023-08-26 19:37] LABS: LACTIC ACID 1.1 mmol/L (0.4-2.0)
[2023-08-26 19:38] LABS: A/G RATIO 0.64
[2023-08-26] MEDS ORDERED: Sodium Chloride 0.9% 1,000 ML IV ONE ×2 (19:52→21:01)
[2023-08-26] MEDS ORDERED: Ondansetron 4 MG/2 ML SDV IVPUSH ONE (19:52)
[2023-08-26 19:55] LABS: APPEARANCE,URINE SLIGHTLY CLOUDY (CLEAR); BILIRUBIN,URINE SMALL (NEGATIVE); COLOR,URINE YELLOW (YELLOW); GLUCOSE,URINE NEGATIVE (NEGATIVE); KETONES,URINE TRACE (NEGATIVE); LEUKOCYTE ESTERASE,URINE NEGATIVE (NEGATIVE); NITRITE,URINE NEGATIVE (NEGATIVE); OCCULT BLOOD,URINE MODERATE (NEGATIVE); PH,URINE 5.5 (5.0-9.0); PROTEIN,URINE 100 (NEGATIVE); UROBILINOGEN,URINE 0.2 mg/dL (0.2-1.0)
[2023-08-26 20:04] LABS: BACTERIA,URINE MANY /HPF (0-FEW/HPF); EPITHELIAL CELLS,URINE MODERATE /HPF (NOT SEEN); MUCUS,URINE FEW /LPF (NOT SEEN)
[2023-08-26] MEDS ORDERED: Iopamidol 612 MG/ML 100 ML Bottle IVPUSH ONE (20:05)
[2023-08-26] MEDS ORDERED: Magnesium Sulfate/Water 2 GM in Premix Bag 1 BAG IV ONE (21:01)
[2023-08-26] MEDS ORDERED: traMADol 50 MG Tab PO ONE (21:45)
[2023-08-26] MEDS ORDERED: Take Home: Ondansetron 4 MG Tab.DIS, 5 Tab Pack PO ONE (23:02)
[2023-08-26 23:23] LABS: ALBUMIN 2.3 g/dL (3.4-5.0); ANION GAP 14.7 mEq/L (7-13); BILIRUBIN TOTAL 0.2 mg/dL (0.2-1.0); BUN/CREATININE RATIO 26.7 (No establ ref range); CALCIUM 7.9 mg/dL (8.5-10.1); CREATININE 1.2 mg/dL (0.55-1.02); EST CRCL DRUG DOSING (CG) 40.25 mL/min; POTASSIUM,K 3.7 mmol/L (3.5-5.1); PROTEIN TOTAL,TP 5.9 g/dL (6.4-8.2)
[2023-08-26 23:26] LABS: A/G RATIO 0.64
[2023-08-26 23:44] VITALS: BP 128/68; PULSE 82
[2023-08-26] MEDS ORDERED: Amoxicillin/Clavulanate K 875-125 MG Tab PO ONE (23:55)
== END 2023-08-27 00:09 | disposition home or self-care (01) ==
LOC: DL.ED 17:45
DX: N39.0 Urinary tract infection, site not specified (principal); N17.9 Acute kidney failure, unspecified; E83.42 Hypomagnesemia; R19.7 Diarrhea, unspecified; R11.0 Nausea; I48.91 Unspecified atrial fibrillation; J44.9 Chronic obstructive pulmonary disease, unspecified; K21.9 Gastro-esophageal reflux disease without esophagitis; E11.9 Type 2 diabetes mellitus without complications; Z86.16 Personal history of COVID-19; Z88.1 Allergy status to other antibiotic agents; Z88.2 Allergy status to sulfonamides; Z79.899 Other long term (current) drug therapy; Z79.01 Long term (current) use of anticoagulants; Z79.4 Long term (current) use of insulin
CPT/HCPCS: 36415; 71045; 74177; 80053; 81001; 82150; 83605; 83690; 83735; 83880; 84145; 84484; 85025; 85610; 85730; 86140; 93005; 93010; 96361; 96365; 96366; 96375; 99284; 99284-25; A9270-GY; J2405; J3475; J7030; Q0162; Q9967

== ENCOUNTER 2023-09-01 14:00 | Observation (INO) | payer MEDICARE, BC ==
[~2023-09-01 14:00] MED LIST: Sodium Chloride 0.9% 1,000 ML IV ONE; Sodium Chloride 0.9% 10 ML Syringe FLUSH PRN
[2023-09-01 14:13] LABS: HEMATOCRIT 35.2 % (37.0-47.0); HEMOGLOBIN 11.4 g/dL (12.0-16.0); MEAN CORPUSCULAR HEMOGLOBIN 29.3 pg (27.0-34.0); MEAN CORPUSCULAR HGB CONC 32.4 g/dL (33.0-35.0); MEAN CORPUSCULAR VOLUME 90.5 fL (80-100); PLATELET COUNT,PLT 323 10^3/uL (150-450); RED BLOOD CELL COUNT 3.89 10^6/uL (4.2-5.4); WHITE BLOOD CELL COUNT,WBC 7.4 10^3/uL (5.0-10.0)
[2023-09-01] MEDS ORDERED: Loperamide 2 MG Cap PO ONE (14:13)
[2023-09-01] MEDS ORDERED: Ondansetron 4 MG/2 ML SDV IVPUSH ONE (14:13)
[2023-09-01 14:17] LABS: BASOPHILS PERCENT AUTO 0.1 % (0.0-1.0); EOSINOPHILS PERCENT AUTO 1.2 % (1.0-3.0); LYMPHOCYTES PERCENT AUTO 7.3 % (20.5-50.1); MONOCYTES PERCENT AUTO 5.1 % (2-8); NEUTROPHILS PERCENT AUTO 86.3 % (42.2-75.2)
[2023-09-01 14:28] LABS: B-TYPE NATRIURETIC PEPTIDE,BNP 45 pg/ml (0-100)
[2023-09-01 14:32] LABS: ALANINE AMINOTRANSFERASE,ALT 24 U/L (14-59); ALBUMIN 2.4 g/dL (3.4-5.0); ALKALINE PHOSPHATASE 54 U/L (46-116); ASPARTATE AMNIOTRANSFERASE,AST 10 U/L (15-37); BILIRUBIN TOTAL 0.3 mg/dL (0.2-1.0); BLOOD UREA NITROGEN,BUN 41 mg/dL (7-18); BUN/CREATININE RATIO 26.1 (No establ ref range); CALCIUM 8.1 mg/dL (8.5-10.1); CARBON DIOXIDE,CO2 19 mmol/L (21-32); CHLORIDE,CL 105 mmol/L (98-107); CREATININE 1.57 mg/dL (0.55-1.02); GLUCOSE RANDOM 197 mg/dL (70-99); MAGNESIUM 1.2 mg/dL (1.8-2.4); PROTEIN TOTAL,TP 5.6 g/dL (6.4-8.2); SODIUM,NA 137 mmol/L (136-145)
[2023-09-01 14:33] LABS: A/G RATIO 0.75; ESTIMATED GFR 35 mL/min (>=60)
[2023-09-01 14:36] LABS: LACTIC ACID 0.8 mmol/L (0.4-2.0)
[2023-09-01] MEDS ORDERED: Magnesium Sulfate/Water 2 GM in Premix Bag 1 BAG IV ONE ×2 (14:44→23:42)
[2023-09-01 14:57] LABS: BAND PERCENT MAN 5 %; LYMPHOCYTES PERCENT MAN 8 % (20-50); MONOCYTES PERCENT MAN 2 % (2-8); SEG NEUTROPHILS PERCENT MAN 85 % (42-75)
[2023-09-01] MEDS ORDERED: Ondansetron 4 MG/2 ML SDV IVPUSH PRN (19:26)
[2023-09-01] MEDS ORDERED: Albuterol/Ipratropium 3.0-0.5 MG/3 ML Neb Soln NEB PRN (19:26)
[2023-09-01] MEDS ORDERED: traMADol 50 MG Tab PO PRN (19:30)
[2023-09-01] MEDS ORDERED: MVI, Adult with Vitamin K 10 ML, Folic Acid 1 MG, Thiamine 100 MG in Lactated Ringers 1... IV ONE ×4 (19:40)
[2023-09-01] MEDS ORDERED: REMDESIVIR 200 MG in Sodium Chloride 0.9% 250 ML IV ONE (23:32)
[2023-09-01] MEDS ORDERED: guaiFENesin/Dextromethorphan 100-10 MG/5 ML Soln 5 ML Cup PO PRN (23:44)
[2023-09-01] MEDS ORDERED: Loperamide 2 MG Cap PO PRN (23:44)
[2023-09-02] MEDS: Acetaminophen 325 MG Tab PO PRN ×2 (01:51→21:01)
[2023-09-02] MEDS: HYDROmorphone 0.5 MG/0.5 ML Syringe IVPUSH PRN ×4 (03:54→21:04)
[2023-09-02 06:37] LABS: BASOPHILS PERCENT AUTO 0.1 % (0.0-1.0); HEMATOCRIT 35.2 % (37.0-47.0); HEMOGLOBIN 11.2 g/dL (12.0-16.0); LYMPHOCYTES PERCENT AUTO 15.7 % (20.5-50.1); MEAN CORPUSCULAR HGB CONC 31.8 g/dL (33.0-35.0); MEAN CORPUSCULAR VOLUME 91.2 fL (80-100); MONOCYTES PERCENT AUTO 7.4 % (2-8); NEUTROPHILS PERCENT AUTO 74.8 % (42.2-75.2); PLATELET COUNT,PLT 331 10^3/uL (150-450); RED BLOOD CELL COUNT 3.86 10^6/uL (4.2-5.4); WHITE BLOOD CELL COUNT,WBC 7.9 10^3/uL (5.0-10.0)
[2023-09-02 06:54] LABS: ALBUMIN 2.3 g/dL (3.4-5.0); ANION GAP 17.5 mEq/L (7-13); BILIRUBIN DIRECT 0.1 mg/dL (0.0-0.2); BILIRUBIN TOTAL 0.2 mg/dL (0.2-1.0); BUN/CREATININE RATIO 27.1 (No establ ref range); C-REACTIVE PROTEIN 0.77 ng/dL (<=0.50); CALCIUM 8.1 mg/dL (8.5-10.1); CREATININE 1.33 mg/dL (0.55-1.02); EST CRCL DRUG DOSING (CG) 36.32 mL/min; MAGNESIUM 2.3 mg/dL (1.8-2.4); POTASSIUM,K 3.5 mmol/L (3.5-5.1); PROTEIN TOTAL,TP 5.4 g/dL (6.4-8.2)
[2023-09-02 07:00] LABS: A/G RATIO 0.74
[2023-09-02] MEDS: Saccharomyces Boulardii (Probiotic) 250 MG Cap PO SCH ×2 (10:01→21:02)
[2023-09-02] MEDS ORDERED: Acetaminophen 325 MG Tab PO PRN (17:16)
[2023-09-02] MEDS ORDERED: hydrOXYzine HCl 25 MG Tab PO PRN (17:16)
[2023-09-02] MEDS ORDERED: Lidocaine 5% 700 MG Patch TRDERM PRN (17:16)
[2023-09-02] MEDS ORDERED: Diclofenac Sodium 1% Gel 100 GM Tube TOP PRN (17:16)
[2023-09-02] MEDS ORDERED: Albuterol 6.7 GM Inhaler INH PRN (17:16)
[2023-09-02] MEDS ORDERED: DAPSONE 25 MG PO SCH (17:30)
[2023-09-02] MEDS ORDERED: predniSONE 5 MG Tab PO SCH (18:00)
[2023-09-02] MEDS ORDERED: Sodium Chloride 0.9% 1,000 ML IV SCH (20:00)
[2023-09-02] MEDS ORDERED: REMDESIVIR 100 MG in Sodium Chloride 0.9% 100 ML IV SCH (21:00)
[2023-09-02] MEDS ORDERED: Montelukast 10 MG Tab PO SCH (21:00)
[2023-09-02] MEDS ORDERED: BIMATOPROST EYEBOTH SCH (21:00)
[2023-09-02] MEDS ORDERED: Non-Formulary Medication 1 Each (Tacrolimus 1 MG Capsule) PO SCH (21:00)
[2023-09-02] MEDS: Mycophenolate Mofetil 250 MG Cap PO SCH (21:01)
[2023-09-02] MEDS: Metoprolol Tartrate 50 MG Tab PO SCH (21:02)
[2023-09-02] MEDS: Apixaban 5 MG Tab PO SCH (21:02)
[2023-09-02] MEDS: Sodium Bicarbonate 650 MG Tab PO SCH (21:02)
[2023-09-03] MEDS ORDERED: Levothyroxine 112 MCG Tab PO SCH (06:00)
[2023-09-03 06:26] LABS: BASOPHILS PERCENT AUTO 0.1 % (0.0-1.0); EOSINOPHILS PERCENT AUTO 1.7 % (1.0-3.0); HEMATOCRIT 33.6 % (37.0-47.0); HEMOGLOBIN 10.8 g/dL (12.0-16.0); LYMPHOCYTES PERCENT AUTO 9.3 % (20.5-50.1); MEAN CORPUSCULAR HGB CONC 32.1 g/dL (33.0-35.0); MEAN CORPUSCULAR VOLUME 90.3 fL (80-100); MONOCYTES PERCENT AUTO 6.2 % (2-8); NEUTROPHILS PERCENT AUTO 82.7 % (42.2-75.2); PLATELET COUNT,PLT 337 10^3/uL (150-450); RED BLOOD CELL COUNT 3.72 10^6/uL (4.2-5.4); WHITE BLOOD CELL COUNT,WBC 9.3 10^3/uL (5.0-10.0)
[2023-09-03 06:58] LABS: ALBUMIN 2.3 g/dL (3.4-5.0); ANION GAP 18.6 mEq/L (7-13); BILIRUBIN DIRECT 0.1 mg/dL (0.0-0.2); BILIRUBIN TOTAL 0.2 mg/dL (0.2-1.0); BUN/CREATININE RATIO 28.8 (No establ ref range); CREATININE 1.46 mg/dL (0.55-1.02); EST CRCL DRUG DOSING (CG) 33.09 mL/min; POTASSIUM,K 3.6 mmol/L (3.5-5.1); PROTEIN TOTAL,TP 5.4 g/dL (6.4-8.2)
[2023-09-03 06:59] LABS: A/G RATIO 0.74
[2023-09-03] MEDS: Mycophenolate Mofetil 250 MG Cap PO SCH (08:39)
[2023-09-03] MEDS: Sodium Bicarbonate 650 MG Tab PO SCH (08:40)
[2023-09-03] MEDS: Metoprolol Tartrate 50 MG Tab PO SCH (08:41)
[2023-09-03] MEDS: Apixaban 5 MG Tab PO SCH (08:41)
[2023-09-03] MEDS: Saccharomyces Boulardii (Probiotic) 250 MG Cap PO SCH (08:41)
[2023-09-03] MEDS ORDERED: Non-Formulary Medication 1 Each (Omega-3 Fatty Acids/Fish Oil [Fish Oil 1,000 Mg Capsule] PO SCH (09:00)
[2023-09-03] MEDS ORDERED: TACROLIMUS 0.5 MG PO SCH (09:00)
[2023-09-03] MEDS ORDERED: Multivitamins with Iron/Calcium/Folic Acid/Minerals Tab PO SCH (09:00)
[2023-09-03] MEDS ORDERED: predniSONE 5 MG Tab PO SCH (09:00)
[2023-09-03] MEDS ORDERED: Non-Formulary Medication 1 Each (Losartan [Cozaar] 100 MG Tablet) PO SCH (09:00)
[2023-09-03] MEDS ORDERED: REMDESIVIR 100 MG in Sodium Chloride 0.9% 100 ML IV STA (09:55)
[2023-09-03 12:50] VITALS: BP 110/61; PULSE 83
[2023-09-04] MEDS ORDERED: Losartan 50 MG Tab PO SCH (09:00)
== END 2023-09-03 13:10 | disposition home or self-care (01) ==
LOC: DL.ED 14:00 → DL.MS 16:29 → DL.ED 16:38
PROVIDERS: ADMIT Internal Medicine; ATTEND Internal Medicine
DX: R19.7 Diarrhea, unspecified (principal); D25.9 Leiomyoma of uterus, unspecified; E87.20 Acidosis, unspecified; E11.65 Type 2 diabetes mellitus with hyperglycemia; I25.84 Coronary atherosclerosis due to calcified coronary lesion; M47.899 Other spondylosis, site unspecified; D84.9 Immunodeficiency, unspecified; I48.0 Paroxysmal atrial fibrillation; J44.9 Chronic obstructive pulmonary disease, unspecified; G47.33 Obstructive sleep apnea (adult) (pediatric); E11.22 Type 2 diabetes mellitus with diabetic chronic kidney disease; I12.9 Hypertensive chronic kidney disease with stage 1 through stage 4 chronic kidney disease, or unspecified chronic kidney disease; N18.30 Chronic kidney disease, stage 3 unspecified; D64.89 Other specified anemias; E03.9 Hypothyroidism, unspecified; K21.9 Gastro-esophageal reflux disease without esophagitis; M19.90 Unspecified osteoarthritis, unspecified site; E78.00 Pure hypercholesterolemia, unspecified; F41.9 Anxiety disorder, unspecified; F32.A Depression, unspecified; E66.9 Obesity, unspecified; Z68.35 Body mass index [BMI] 35.0-35.9, adult; Z87.891 Personal history of nicotine dependence; Z90.89 Acquired absence of other organs; Z90.49 Acquired absence of other specified parts of digestive tract; Z98.51 Tubal ligation status; Z79.899 Other long term (current) drug therapy; Z79.4 Long term (current) use of insulin; Z79.890 Hormone replacement therapy; Z88.1 Allergy status to other antibiotic agents; Z88.2 Allergy status to sulfonamides; Z91.041 Radiographic dye allergy status
CPT/HCPCS: 36415; 71045; 80053; 82248; 83605; 83735; 83880; 85025; 86140; 87045; 87046; 87328; 87329; 87493; 87899; 99222; 99232; 99238; A9270-GY; J0248; J1170; J2405; J3411; J3475; J3490; J7030; J7050; J7120; J7512

== ENCOUNTER 2024-05-07 13:10 | Inpatient (IN) | payer MEDICARE, BC ==
[2024-05-07 13:25] LABS: EOSINOPHILS PERCENT AUTO 0.9 % (1.0-3.0); HEMATOCRIT 38.5 % (37.0-47.0); HEMOGLOBIN 11.7 g/dL (12.0-16.0); LYMPHOCYTES PERCENT AUTO 6.8 % (20.5-50.1); MEAN CORPUSCULAR HEMOGLOBIN 25.1 pg (27.0-34.0); MEAN CORPUSCULAR HGB CONC 30.4 g/dL (33.0-35.0); MEAN CORPUSCULAR VOLUME 82.4 fL (80-100); MONOCYTES PERCENT AUTO 5.3 % (2-8); PLATELET COUNT,PLT 127 10^3/uL (150-450); RED BLOOD CELL COUNT 4.67 10^6/uL (4.2-5.4); WHITE BLOOD CELL COUNT,WBC 5.4 10^3/uL (5.0-10.0)
[2024-05-07 13:53] LABS: ALANINE AMINOTRANSFERASE,ALT 11 U/L (14-59); ALBUMIN 2.6 g/dL (3.4-5.0); ALKALINE PHOSPHATASE 77 U/L (46-116); ANION GAP 16.3 mEq/L (7-13); ASPARTATE AMNIOTRANSFERASE,AST 8 U/L (15-37); BILIRUBIN TOTAL 0.3 mg/dL (0.2-1.0); BLOOD UREA NITROGEN,BUN 56 mg/dL (7-18); BUN/CREATININE RATIO 24.1 (No establ ref range); C-REACTIVE PROTEIN 2.78 ng/dL (<=0.50); CALCIUM 8.6 mg/dL (8.5-10.1); CARBON DIOXIDE,CO2 22 mmol/L (21-32); CHLORIDE,CL 99 mmol/L (98-107); CREATININE 2.32 mg/dL (0.55-1.02); MAGNESIUM 1.6 mg/dL (1.8-2.4); POTASSIUM,K 5.3 mmol/L (3.5-5.1); PROTEIN TOTAL,TP 5.8 g/dL (6.4-8.2); SODIUM,NA 132 mmol/L (136-145)
[2024-05-07 13:59] LABS: A/G RATIO 0.81; ESTIMATED GFR 22 mL/min (>=60); GLUCOSE RANDOM 440 mg/dL (70-99)
[2024-05-07] MEDS: Sodium Chloride 0.9% 1,000 ML IV ONE ×2 (14:40→15:40)
[2024-05-07 15:18] LABS: LACTIC ACID 1.2 mmol/L (0.4-2.0)
[2024-05-07 15:48] LABS: APPEARANCE,URINE TURBID (CLEAR); BILIRUBIN,URINE NEGATIVE (NEGATIVE); COLOR,URINE YELLOW (YELLOW); GLUCOSE,URINE 500 (NEGATIVE); KETONES,URINE NEGATIVE (NEGATIVE); LEUKOCYTE ESTERASE,URINE TRACE (NEGATIVE); NITRITE,URINE NEGATIVE (NEGATIVE); OCCULT BLOOD,URINE LARGE (NEGATIVE); PH,URINE 5.5 (5.0-9.0); PROTEIN,URINE 30 (NEGATIVE); UROBILINOGEN,URINE 0.2 mg/dL (0.2-1.0)
[2024-05-07] MEDS: Nystatin Topical Powder 60 GM Bottle TOP PRN (15:50)
[2024-05-07] MEDS: Sodium Chloride 0.9% 10 ML Syringe FLUSH PRN (15:57)
[2024-05-07 15:58] LABS: BACTERIA,URINE MANY /HPF (0-FEW/HPF); CALCIUM OXALATE CRYSTALS,URINE FEW /HPF (NOT SEEN); EPITHELIAL CELLS,URINE MODERATE /HPF (NOT SEEN); MUCUS,URINE FEW /LPF (NOT SEEN); RBC,URINE 40-50 /HPF (0-5); WBC,URINE 30-40 /HPF (0-5/HPF)
[2024-05-07] MEDS: cefTRIAXone 2 GM Vial IVPUSH ONE (16:09)
[2024-05-07] MEDS: Azithromycin 250 MG Tab PO ONE (16:26)
[2024-05-07] MEDS ORDERED: guaiFENesin/Dextromethorphan 100-10 MG/5 ML Soln 5 ML Cup PO PRN ×2 (17:24→18:46)
[2024-05-07] MEDS ORDERED: traMADol 50 MG Tab PO PRN (17:30)
[2024-05-07] MEDS ORDERED: DAPSONE 25 MG PO SCH (17:30)
[2024-05-07] MEDS ORDERED: hydrOXYzine HCl 25 MG Tab PO PRN (17:30)
[2024-05-07] MEDS ORDERED: Loperamide 2 MG Cap PO PRN (17:30)
[2024-05-07] MEDS ORDERED: Glucagon,Human Recombinant 1 MG Vial IM PRN (17:37)
[2024-05-07] MEDS ORDERED: 50% Dextrose in Water 50 ML Syringe IVPUSH PRN (17:37)
[2024-05-07] MEDS ORDERED: Midodrine 5 MG Tab PO PRN (17:38)
[2024-05-07] MEDS ORDERED: hydrALAZINE 20 MG/ML SDV IVPUSH PRN (17:39)
[2024-05-07] MEDS ORDERED: Metoprolol Tartrate 5 MG/5 ML SDV IVPUSH PRN (17:39)
[2024-05-07] MEDS ORDERED: HYDROmorphone 0.5 MG/0.5 ML Syringe IVPUSH PRN (17:40)
[2024-05-07] MEDS ORDERED: Polyethylene Glycol 3350 Powder 17 GM Packet PO PRN (17:40)
[2024-05-07] MEDS ORDERED: Acetaminophen/HYDROcodone 325-5 MG Tab PO PRN (17:40)
[2024-05-07] MEDS ORDERED: Sennosides/Docusate Sodium 50-8.6 MG Tab PO PRN (17:40)
[2024-05-07] MEDS ORDERED: Ondansetron 4 MG/2 ML SDV IVPUSH PRN (17:40)
[2024-05-07] MEDS ORDERED: Promethazine 25 MG/ML SDV IM PRN (17:40)
[2024-05-07] MEDS ORDERED: Magnesium Hydroxide 400 MG/5 ML Susp 30 ML Cup PO PRN (17:40)
[2024-05-07] MEDS ORDERED: Acetaminophen 325 MG Tab PO PRN (17:40)
[2024-05-07] MEDS ORDERED: Albuterol/Ipratropium 3.0-0.5 MG/3 ML Neb Soln NEB PRN (17:40)
[2024-05-07] MEDS ORDERED: Naloxone 2 MG/2 ML Syringe IVPUSH PRN (17:40)
[2024-05-07] MEDS: Insulin Lispro 100 Units/ML 3 ML Vial ONE (17:54)
[2024-05-07] MEDS: glipiZIDE 5 MG Tab PO SCH (17:54)
[2024-05-07] MEDS: Fluconazole/Normal Saline 200 MG in Premix Bag 1 BAG IV SCH (17:55)
[2024-05-07] MEDS: Ampicillin/Sulbactam Na 1.5 GM in Sodium Chloride 0.9% 100 ML IV SCH (17:55)
[2024-05-07] MEDS: Insulin Glarg,Human.Rec.Analog 100 Unit/ML 10 ML Vial SUBCUT ONE ×2 (18:15→18:28)
[2024-05-07] MEDS: predniSONE 5 MG Tab PO SCH (18:20)
[2024-05-07] MEDS: Insulin Lispro 100 Units/ML 3 ML Vial SUBCUT SCH (18:25)
[2024-05-07] MEDS: Fluconazole/Normal Saline 200 MG in Premix Bag 1 BAG IV ONE (19:01)
[2024-05-07] MEDS ORDERED: [UNRECOGNIZED DRUG - OTHER] SQ SCH (21:00)
[2024-05-07] MEDS ORDERED: INSULIN GLARGINE SQ SCH (21:00)
[2024-05-07] MEDS: Mycophenolate Mofetil 250 MG Cap PO SCH (21:24)
[2024-05-07] MEDS: Sodium Polystyrene Sulfonate 15 GM/60 ML Susp 60 ML Bot PO ONE (21:24)
[2024-05-07] MEDS: Pregabalin 50 MG Cap PO SCH (21:25)
[2024-05-07] MEDS: Metoprolol Tartrate 25 MG Tab PO SCH (21:25)
[2024-05-07] MEDS: Apixaban 5 MG Tab PO SCH (21:25)
[2024-05-07] MEDS: Saccharomyces Boulardii (Probiotic) 250 MG Cap PO SCH (21:25)
[2024-05-07] MEDS: Montelukast 10 MG Tab PO SCH (21:26)
[2024-05-07] MEDS: guaiFENesin 600 MG Tab.ER PO SCH (21:26)
[2024-05-07] MEDS: Nystatin Topical Powder 60 GM Bottle TOP SCH (21:26)
[2024-05-07] MEDS: Timolol Maleate 0.5% Ophth Soln 5 ML Bottle EYERT SCH (21:27)
[2024-05-07] MEDS: Brimonidine 0.2% Ophth Soln 5 ML Bottle EYERT SCH (21:27)
[2024-05-07] MEDS: Insulin Glarg,Human.Rec.Analog 100 Unit/ML 10 ML Vial SUBCUT SCH (21:28)
[2024-05-07] MEDS: Magnesium Sulfate/Water 2 GM in Premix Bag 1 BAG IV ONE (21:28)
[2024-05-07] MEDS: diphenhydrAMINE 50 MG/ML SDV IVPUSH ONE (21:38)
[2024-05-07] MEDS: Dexamethasone 4 MG/ML SDV IVPUSH ONE (21:39)
[2024-05-07] MEDS: Famotidine 20 MG/2 ML SDV IVPUSH ONE (21:42)
[2024-05-08] MEDS: Levothyroxine 112 MCG Tab PO SCH (05:43)
[2024-05-08] MEDS: Omeprazole 20 MG Cap.CR PO SCH (06:07)
[2024-05-08 06:23] LABS: BASOPHILS PERCENT AUTO 0.2 % (0.0-1.0); EOSINOPHILS PERCENT AUTO 0.2 % (1.0-3.0); HEMATOCRIT 37.6 % (37.0-47.0); HEMOGLOBIN 11.4 g/dL (12.0-16.0); MEAN CORPUSCULAR HEMOGLOBIN 24.9 pg (27.0-34.0); MEAN CORPUSCULAR HGB CONC 30.3 g/dL (33.0-35.0); MEAN CORPUSCULAR VOLUME 82.3 fL (80-100); MONOCYTES PERCENT AUTO 0.9 % (2-8); NEUTROPHILS PERCENT AUTO 90.7 % (42.2-75.2); PLATELET COUNT,PLT 116 10^3/uL (150-450); RED BLOOD CELL COUNT 4.57 10^6/uL (4.2-5.4); WHITE BLOOD CELL COUNT,WBC 4.3 10^3/uL (5.0-10.0)
[2024-05-08 06:50] LABS: ALBUMIN 2.3 g/dL (3.4-5.0); ANION GAP 16.9 mEq/L (7-13); BILIRUBIN TOTAL 0.2 mg/dL (0.2-1.0); BUN/CREATININE RATIO 24.8 (No establ ref range); C-REACTIVE PROTEIN 2.47 ng/dL (<=0.50); CALCIUM 8.2 mg/dL (8.5-10.1); CREATININE 1.49 mg/dL (0.55-1.02); EST CRCL DRUG DOSING (CG) 32.42 mL/min; MAGNESIUM 2.2 mg/dL (1.8-2.4); POTASSIUM,K 4.9 mmol/L (3.5-5.1); PROTEIN TOTAL,TP 5.5 g/dL (6.4-8.2)
[2024-05-08 06:58] LABS: A/G RATIO 0.72
[2024-05-08] MEDS ORDERED: Non-Formulary Medication 1 Each (Omega-3 Fatty Acids/Fish Oil [Fish Oil 1,000 Mg Capsule] PO SCH (09:00)
[2024-05-08] MEDS: Cholecalciferol (Vitamin D3) 25 MCG Tab PO SCH (10:08)
[2024-05-08] MEDS: Multivitamin Tab PO SCH (10:08)
[2024-05-08] MEDS: predniSONE 5 MG Tab PO SCH ×2 (10:09→17:09)
[2024-05-08] MEDS: Lidocaine 5% 700 MG Patch TOP SCH (10:10)
[2024-05-08] MEDS: Magnesium Oxide 400 MG Tab PO SCH (10:10)
[2024-05-08] MEDS: Azithromycin 500 MG in Sodium Chloride 0.9% 250 ML IV SCH (10:15)
[2024-05-08] MEDS: Insulin Lispro 100 Units/ML 3 ML Vial SUBCUT SCH (20:53)
[2024-05-08] MEDS: Non-Formulary Medication 1 Each (Tacrolimus 1 MG Capsule) PO SCH (23:59)
[2024-05-09] MEDS: TACROLIMUS 0.5 MG PO SCH
[2024-05-09 06:34] LABS: BASOPHILS PERCENT AUTO 0.2 % (0.0-1.0); EOSINOPHILS PERCENT AUTO 0.7 % (1.0-3.0); HEMATOCRIT 35.2 % (37.0-47.0); HEMOGLOBIN 10.8 g/dL (12.0-16.0); LYMPHOCYTES PERCENT AUTO 8.8 % (20.5-50.1); MEAN CORPUSCULAR HEMOGLOBIN 25.1 pg (27.0-34.0); MEAN CORPUSCULAR HGB CONC 30.7 g/dL (33.0-35.0); MEAN CORPUSCULAR VOLUME 81.7 fL (80-100); MONOCYTES PERCENT AUTO 5.7 % (2-8); NEUTROPHILS PERCENT AUTO 84.6 % (42.2-75.2); PLATELET COUNT,PLT 139 10^3/uL (150-450); RED BLOOD CELL COUNT 4.31 10^6/uL (4.2-5.4); WHITE BLOOD CELL COUNT,WBC 5.6 10^3/uL (5.0-10.0)
[2024-05-09 07:01] LABS: ALBUMIN 2.3 g/dL (3.4-5.0); ANION GAP 13.5 mEq/L (7-13); BILIRUBIN TOTAL 0.2 mg/dL (0.2-1.0); BUN/CREATININE RATIO 28.9 (No establ ref range); C-REACTIVE PROTEIN 1.69 ng/dL (<=0.50); CALCIUM 8.1 mg/dL (8.5-10.1); CREATININE 1.35 mg/dL (0.55-1.02); EST CRCL DRUG DOSING (CG) 35.78 mL/min; MAGNESIUM 2.2 mg/dL (1.8-2.4); POTASSIUM,K 4.5 mmol/L (3.5-5.1); PROTEIN TOTAL,TP 5.1 g/dL (6.4-8.2)
[2024-05-09 07:21] LABS: A/G RATIO 0.82
[2024-05-09] MEDS: Fluconazole/Normal Saline 100 MG in Premix Bag 1 BAG IV SCH (10:08)
[2024-05-09] MEDS: Losartan 50 MG Tab PO SCH (20:52)
[2024-05-10 06:50] LABS: EOSINOPHILS PERCENT AUTO 2.4 % (1.0-3.0); HEMATOCRIT 35.4 % (37.0-47.0); HEMOGLOBIN 10.7 g/dL (12.0-16.0); LYMPHOCYTES PERCENT AUTO 13.2 % (20.5-50.1); MEAN CORPUSCULAR HEMOGLOBIN 24.9 pg (27.0-34.0); MEAN CORPUSCULAR HGB CONC 30.2 g/dL (33.0-35.0); MEAN CORPUSCULAR VOLUME 82.5 fL (80-100); MONOCYTES PERCENT AUTO 7.5 % (2-8); NEUTROPHILS PERCENT AUTO 76.9 % (42.2-75.2); PLATELET COUNT,PLT 130 10^3/uL (150-450); RED BLOOD CELL COUNT 4.29 10^6/uL (4.2-5.4); WHITE BLOOD CELL COUNT,WBC 4.6 10^3/uL (5.0-10.0)
[2024-05-10 07:03] LABS: ALBUMIN 2.4 g/dL (3.4-5.0); ANION GAP 12.7 mEq/L (7-13); BILIRUBIN TOTAL 0.2 mg/dL (0.2-1.0); BUN/CREATININE RATIO 23.1 (No establ ref range); C-REACTIVE PROTEIN 0.83 ng/dL (<=0.50); CALCIUM 8.6 mg/dL (8.5-10.1); CREATININE 1.08 mg/dL (0.55-1.02); EST CRCL DRUG DOSING (CG) 44.73 mL/min; MAGNESIUM 1.9 mg/dL (1.8-2.4); POTASSIUM,K 4.7 mmol/L (3.5-5.1); PROTEIN TOTAL,TP 5.2 g/dL (6.4-8.2)
[2024-05-10 07:07] LABS: A/G RATIO 0.86
[2024-05-10] MEDS: Spironolactone 25 MG Tab PO SCH (09:50)
[2024-05-10] MEDS: Bumetanide 1 MG Tab PO SCH (09:52)
[2024-05-10] MEDS: FLUTICASONE INH SCH (18:21)
[2024-05-10] MEDS: COMBIGAN EYEBOTH SCH (20:06)
[2024-05-10] MEDS: LUMIGAN EYEBOTH SCH (20:07)
[2024-05-10] MEDS: TACROLIMUS PO SCH (20:08)
[2024-05-11 05:56] LABS: HEMATOCRIT 36.4 % (37.0-47.0); MEAN CORPUSCULAR HEMOGLOBIN 24.9 pg (27.0-34.0); MEAN CORPUSCULAR HGB CONC 30.2 g/dL (33.0-35.0); MEAN CORPUSCULAR VOLUME 82.5 fL (80-100); PLATELET COUNT,PLT 133 10^3/uL (150-450); RED BLOOD CELL COUNT 4.41 10^6/uL (4.2-5.4)
[2024-05-11 06:11] LABS: ALANINE AMINOTRANSFERASE,ALT 14 U/L (14-59); ALBUMIN 2.5 g/dL (3.4-5.0); ALKALINE PHOSPHATASE 66 U/L (46-116); ANION GAP 9.5 mEq/L (7-13); ASPARTATE AMNIOTRANSFERASE,AST 12 U/L (15-37); BILIRUBIN TOTAL 0.3 mg/dL (0.2-1.0); BLOOD UREA NITROGEN,BUN 22 mg/dL (7-18); BUN/CREATININE RATIO 20.2 (No establ ref range); CALCIUM 8.8 mg/dL (8.5-10.1); CARBON DIOXIDE,CO2 29 mmol/L (21-32); CHLORIDE,CL 105 mmol/L (98-107); CREATININE 1.09 mg/dL (0.55-1.02); EST CRCL DRUG DOSING (CG) 44.32 mL/min; GLUCOSE RANDOM 131 mg/dL (70-99); MAGNESIUM 1.6 mg/dL (1.8-2.4); POTASSIUM,K 4.5 mmol/L (3.5-5.1); PROTEIN TOTAL,TP 5.3 g/dL (6.4-8.2); SODIUM,NA 139 mmol/L (136-145)
[2024-05-11 06:30] LABS: A/G RATIO 0.89; C-REACTIVE PROTEIN < 0.50 ng/dL (<=0.50); ESTIMATED GFR 54 mL/min (>=60)
[2024-05-11 06:42] LABS: BASOPHILS PERCENT AUTO 0.2 % (0.0-1.0); EOSINOPHILS PERCENT AUTO 3.6 % (1.0-3.0); LYMPHOCYTES PERCENT AUTO 19.8 % (20.5-50.1); MONOCYTES PERCENT AUTO 10.1 % (2-8); NEUTROPHILS PERCENT AUTO 66.3 % (42.2-75.2)
[2024-05-11 07:01] LABS: EOSINOPHILS PERCENT MAN 3 % (1-3); LYMPHOCYTES PERCENT MAN 19 % (20-50); MONOCYTES PERCENT MAN 8 % (2-8); SEG NEUTROPHILS PERCENT MAN 70 % (42-75)
[2024-05-11 08:05] VITALS: BP 145/68; PULSE 71
[2024-05-11] MEDS: Magnesium Sulfate/Water 2 GM in Premix Bag 1 BAG IV ONE (08:10)
[2024-05-11] MEDS: Mycophenolate Mofetil 250 MG Cap PO SCH (08:19)
[2024-05-11] MEDS: TACROLIMUS PO SCH (08:26)
[2024-05-11] MEDS: Amoxicillin 250 MG Cap PO ONE (10:14)
[2024-05-11] MEDS: Fluconazole 100 MG Tab PO ONE (10:14)
[2024-05-11] MEDS: Amoxicillin 500 MG Cap PO ONE (10:14)
== END 2024-05-11 11:00 | disposition home or self-care (01) | DRG 699 ==
LOC: DL.ED 13:10 → DL.MS 16:11
PROVIDERS: ADMIT Internal Medicine; ATTEND Internal Medicine
DX: J18.9 Pneumonia, unspecified organism (principal); T83.511A Infection and inflammatory reaction due to indwelling urethral catheter, initial encounter; D84.9 Immunodeficiency, unspecified; N17.9 Acute kidney failure, unspecified; J44.9 Chronic obstructive pulmonary disease, unspecified; I13.0 Hypertensive heart and chronic kidney disease with heart failure and stage 1 through stage 4 chronic kidney disease, or unspecified chronic kidney disease; E11.9 Type 2 diabetes mellitus without complications; Z94.2 Lung transplant status; E44.0 Moderate protein-calorie malnutrition; F19.20 Other psychoactive substance dependence, uncomplicated; I50.32 Chronic diastolic (congestive) heart failure; J44.0 Chronic obstructive pulmonary disease with (acute) lower respiratory infection; Z79.2 Long term (current) use of antibiotics; N39.0 Urinary tract infection, site not specified; N18.30 Chronic kidney disease, stage 3 unspecified; Z66 Do not resuscitate; K21.9 Gastro-esophageal reflux disease without esophagitis; I48.0 Paroxysmal atrial fibrillation; E03.9 Hypothyroidism, unspecified; G89.29 Other chronic pain; M54.9 Dorsalgia, unspecified; M81.0 Age-related osteoporosis without current pathological fracture; F41.9 Anxiety disorder, unspecified; F32.A Depression, unspecified; E78.00 Pure hypercholesterolemia, unspecified; G47.33 Obstructive sleep apnea (adult) (pediatric); J20.9 Acute bronchitis, unspecified; Z99.3 Dependence on wheelchair; E66.9 Obesity, unspecified; E11.65 Type 2 diabetes mellitus with hyperglycemia; E11.649 Type 2 diabetes mellitus with hypoglycemia without coma; E83.42 Hypomagnesemia; E87.5 Hyperkalemia; B37.9 Candidiasis, unspecified; B96.89 Other specified bacterial agents as the cause of diseases classified elsewhere; D63.1 Anemia in chronic kidney disease; Z88.1 Allergy status to other antibiotic agents; Z88.2 Allergy status to sulfonamides; Z88.5 Allergy status to narcotic agent; Z88.8 Allergy status to other drugs, medicaments and biological substances; Z79.4 Long term (current) use of insulin; Z86.16 Personal history of COVID-19; Z98.51 Tubal ligation status; Z90.49 Acquired absence of other specified parts of digestive tract; Z90.89 Acquired absence of other organs; Z74.01 Bed confinement status; Z79.01 Long term (current) use of anticoagulants; Z91.041 Radiographic dye allergy status; Z79.899 Other long term (current) drug therapy; Z79.890 Hormone replacement therapy; Z68.32 Body mass index [BMI] 32.0-32.9, adult
CPT/HCPCS: 36415; 71045; 72131; 80053; 81001; 82947; 83605; 83735; 85025; 86140; 87040; 87086; 87088; 87186; 96361; 96374; 99223; 99232; 99238; 99284; 99285-25; A9270-GY; J0295; J0456; J0696; J1100; J1200; J1450; J1815-GY; J3475; J3490; J7030; J7050; J7512

== ENCOUNTER 2024-09-21 06:14 | Emergency (ER) | payer MEDICARE, BC ==
[2024-09-21] MEDS ORDERED: Sodium Chloride 0.9% 10 ML Syringe FLUSH PRN (07:00)
[2024-09-21 07:27] LABS: BASOPHILS PERCENT AUTO 0.4 % (0.0-1.0); EOSINOPHILS PERCENT AUTO 5.3 % (1.0-3.0); HEMATOCRIT 37.7 % (37.0-47.0); HEMOGLOBIN 11.3 g/dL (12.0-16.0); LYMPHOCYTES PERCENT AUTO 27.6 % (20.5-50.1); MEAN CORPUSCULAR HEMOGLOBIN 27.9 pg (27.0-34.0); MEAN CORPUSCULAR VOLUME 93.1 fL (80-100); MONOCYTES PERCENT AUTO 11.7 % (2-8); PLATELET COUNT,PLT 104 10^3/uL (150-450); RED BLOOD CELL COUNT 4.05 10^6/uL (4.2-5.4); WHITE BLOOD CELL COUNT,WBC 4.5 10^3/uL (5.0-10.0)
[2024-09-21] MEDS: Nystatin Ointment 15 GM Tube TOP ONE (07:42)
[2024-09-21 07:46] LABS: ALBUMIN 2.8 g/dL (3.4-5.0); ANION GAP 13.3 mEq/L (7-13); BILIRUBIN TOTAL 0.3 mg/dL (0.2-1.0); BUN/CREATININE RATIO 35.3 (No establ ref range); CALCIUM 8.9 mg/dL (8.5-10.1); CREATININE 2.18 mg/dL (0.55-1.02); EST CRCL DRUG DOSING (CG) 21.84 mL/min; POTASSIUM,K 5.3 mmol/L (3.5-5.1); PROTEIN TOTAL,TP 5.7 g/dL (6.4-8.2)
[2024-09-21 07:49] LABS: A/G RATIO 0.97
[2024-09-21 07:59] LABS: PROTHROMBIN TIME 10.1 SEC (9.0-12.0); PTT,PARTIAL THROMBOPLSTIN TIME 23.2 SEC (22.0-34.0)
[2024-09-21 08:02] VITALS: PULSE 64
[2024-09-21 08:05] VITALS: BP 129/66
== END 2024-09-21 08:54 | disposition home or self-care (01) ==
LOC: DL.ED 06:14
DX: K64.5 Perianal venous thrombosis (principal); I48.91 Unspecified atrial fibrillation; J44.9 Chronic obstructive pulmonary disease, unspecified; K21.9 Gastro-esophageal reflux disease without esophagitis; E11.9 Type 2 diabetes mellitus without complications; E03.9 Hypothyroidism, unspecified; Z86.16 Personal history of COVID-19; Z90.49 Acquired absence of other specified parts of digestive tract; Z88.4 Allergy status to anesthetic agent; Z88.1 Allergy status to other antibiotic agents; Z88.5 Allergy status to narcotic agent; Z88.2 Allergy status to sulfonamides; Z88.8 Allergy status to other drugs, medicaments and biological substances; Z91.041 Radiographic dye allergy status; Z79.4 Long term (current) use of insulin; Z79.01 Long term (current) use of anticoagulants; Z79.52 Long term (current) use of systemic steroids; Z79.51 Long term (current) use of inhaled steroids; Z79.899 Other long term (current) drug therapy
CPT/HCPCS: 36415; 80053; 82272; 85025; 85610; 85730; 99283; A9270-GY

== ENCOUNTER 2024-10-13 21:02 | Emergency (ER) | payer MEDICARE, BC ==
[2024-10-13 22:35] VITALS: BP 117/86; PULSE 80
== END 2024-10-13 22:40 | disposition home or self-care (01) ==
LOC: DL.ED 21:02
DX: T83.091A Other mechanical complication of indwelling urethral catheter, initial encounter (principal); I48.91 Unspecified atrial fibrillation; E78.00 Pure hypercholesterolemia, unspecified; J44.9 Chronic obstructive pulmonary disease, unspecified; K21.9 Gastro-esophageal reflux disease without esophagitis; E03.9 Hypothyroidism, unspecified; I10 Essential (primary) hypertension; E11.9 Type 2 diabetes mellitus without complications; Z86.16 Personal history of COVID-19; Z90.49 Acquired absence of other specified parts of digestive tract; Z88.1 Allergy status to other antibiotic agents; Z88.2 Allergy status to sulfonamides; Z88.5 Allergy status to narcotic agent; Z91.041 Radiographic dye allergy status; Z79.4 Long term (current) use of insulin; Z79.01 Long term (current) use of anticoagulants; Z79.52 Long term (current) use of systemic steroids; Z79.51 Long term (current) use of inhaled steroids; Z79.890 Hormone replacement therapy; Z79.899 Other long term (current) drug therapy
CPT/HCPCS: 51702; 99283

== ENCOUNTER 2025-01-03 10:05 | Emergency (ER) | payer MEDICARE, BC ==
[~2025-01-03 10:05] MED LIST changes: -Sodium Chloride 0.9% 1,000 ML IV ONE
[2025-01-03] MEDS: Lactated Ringers 2,000 ML IV SCH (10:13)
[2025-01-03 10:25] LABS: BASOPHILS PERCENT AUTO 0.1 % (0.0-1.0); EOSINOPHILS PERCENT AUTO 1.4 % (1.0-3.0); HEMATOCRIT 40.9 % (37.0-47.0); HEMOGLOBIN 12.8 g/dL (12.0-16.0); LYMPHOCYTES PERCENT AUTO 7.5 % (20.5-50.1); MEAN CORPUSCULAR HEMOGLOBIN 27.2 pg (27.0-34.0); MEAN CORPUSCULAR HGB CONC 31.3 g/dL (33.0-35.0); MEAN CORPUSCULAR VOLUME 86.8 fL (80-100); MONOCYTES PERCENT AUTO 6.1 % (2-8); NEUTROPHILS PERCENT AUTO 84.9 % (42.2-75.2); PLATELET COUNT,PLT 203 10^3/uL (150-450); RED BLOOD CELL COUNT 4.71 10^6/uL (4.2-5.4); WHITE BLOOD CELL COUNT,WBC 9.2 10^3/uL (5.0-10.0)
[2025-01-03 10:39] LABS: INR 1.2 (0.9-1.2); PROTHROMBIN TIME 12.4 SEC (9.0-12.0)
[2025-01-03 10:47] LABS: ALBUMIN 2.9 g/dL (3.4-5.0); ANION GAP 23.3 mEq/L (7-13); BILIRUBIN TOTAL 0.3 mg/dL (0.2-1.0); BUN/CREATININE RATIO 31.5 (No establ ref range); C-REACTIVE PROTEIN 6.29 ng/dL (<=0.50); CALCIUM 9.5 mg/dL (8.5-10.1); CREATININE 4.28 mg/dL (0.55-1.02); EST CRCL DRUG DOSING (CG) 11.12 mL/min; POTASSIUM,K 4.3 mmol/L (3.5-5.1); PROTEIN TOTAL,TP 6.3 g/dL (6.4-8.2)
[2025-01-03 10:50] LABS: A/G RATIO 0.85; LACTIC ACID 1.6 mmol/L (0.4-2.0)
[2025-01-03] MEDS: cefTRIAXone 2 GM Vial IVPUSH ONE (10:58)
[2025-01-03] MEDS: VANCOmycin 2 GM in Sodium Chloride 0.9% 500 ML IV ONE (11:27)
[2025-01-03] MEDS: Nystatin Topical Powder 60 GM Bottle TOP SCH (12:37)
[2025-01-03 13:24] VITALS: BP 132/68; PULSE 89
== END 2025-01-03 14:18 ==
LOC: DL.ED 10:05
DX: N17.9 Acute kidney failure, unspecified (principal); L98.492 Non-pressure chronic ulcer of skin of other sites with fat layer exposed; I48.91 Unspecified atrial fibrillation; E11.22 Type 2 diabetes mellitus with diabetic chronic kidney disease; E03.9 Hypothyroidism, unspecified; J44.9 Chronic obstructive pulmonary disease, unspecified; K21.9 Gastro-esophageal reflux disease without esophagitis; Z88.8 Allergy status to other drugs, medicaments and biological substances; Z88.1 Allergy status to other antibiotic agents; Z88.2 Allergy status to sulfonamides; Z88.5 Allergy status to narcotic agent; Z91.041 Radiographic dye allergy status; Z79.899 Other long term (current) drug therapy; Z79.01 Long term (current) use of anticoagulants; Z79.02 Long term (current) use of antithrombotics/antiplatelets; Z79.4 Long term (current) use of insulin; Z79.891 Long term (current) use of opiate analgesic; Z79.890 Hormone replacement therapy; Z86.16 Personal history of COVID-19; Z90.49 Acquired absence of other specified parts of digestive tract
CPT/HCPCS: 36415; 71046; 80053; 83605; 83690; 84145; 85025; 85610; 86140; 87040; 87428-QW; 96361; 96365; 96366; 96375; 99284; 99285-25; J0696; J3490; J7040; J7120